=== PATIENT | female | born 1965 | race Two or more races ===

== ENCOUNTER 2018-11-17 09:58 | Emergency (ER) | payer MEDICAID ==
[~2018-11-17] VITALS: Ht 157.5 cm; Wt 81.6 kg
[~2018-11-17 09:58] MED LIST: BUPR100T14; OMEPRAZOLE DR 20 MG CAPSULE PO; SIMV-8 PO; TRAM50TA2 PO
[2018-11-17 10:25] VITALS: BP 156/90
[2018-11-17] MEDS ORDERED: KETOROLAC TROMETH 60MG/2ML VIAL IM ONE (10:45)
== END 2018-11-17 11:27 | disposition home or self-care (01) ==
LOC: ER 10:00
DX: S59.802A Other specified injuries of left elbow, initial encounter (principal); E11.9 Type 2 diabetes mellitus without complications; E78.5 Hyperlipidemia, unspecified; F17.210 Nicotine dependence, cigarettes, uncomplicated; Z90.49 Acquired absence of other specified parts of digestive tract; Z90.710 Acquired absence of both cervix and uterus; Z79.899 Other long term (current) drug therapy; W18.39XA Other fall on same level, initial encounter; Y93.89 Activity, other specified; Y99.8 Other external cause status; Y92.89 Other specified places as the place of occurrence of the external cause
CPT/HCPCS: 73080; 96372; 99283; J1885

== ENCOUNTER 2019-02-23 13:18 | Emergency (ER) | payer MEDICAID ==
[~2019-02-23] VITALS: Ht 157.5 cm; Wt 79.4 kg
[2019-02-23 13:35] VITALS: BP 129/79
== END 2019-02-23 15:36 | disposition home or self-care (01) ==
LOC: ER 13:28
DX: S46.911A Strain of unspecified muscle, fascia and tendon at shoulder and upper arm level, right arm, initial encounter (principal); W18.39XA Other fall on same level, initial encounter; Y93.01 Activity, walking, marching and hiking; Y92.89 Other specified places as the place of occurrence of the external cause; Y99.8 Other external cause status
CPT/HCPCS: 73030

== ENCOUNTER 2019-08-31 11:25 | Inpatient (IN) | payer MEDICAID ==
[~2019-08-31] VITALS: Ht 157.5 cm; Wt 81.6 kg
[2019-08-31 12:16] LABS: Basophils # (auto) 0 10 ^3/uL (0-0.2); Basophils % (auto) 0.4 % (0.0-2.0); Eosinophils # (auto) 0 10 ^3/uL (0-0.8); Eosinophils % (auto) 0.6 % (0.0-7.0); Hematocrit 44.8 % (36.0-46.0); Hemoglobin 15.2 g/dL (12.2-16.2); Lymphocytes # (auto) 1.5 10 ^3/uL (0.4-5.4); Lymphocytes % (auto) 23.2 % (10.0-50.0); Mean Corpuscular Hemoglobin 32.5 pg (28.0-32.0); Mean Corpuscular Volume 95.7 fL (80.0-100.0); Monocytes # (auto) 0.4 10 ^3/uL (0-1.3); Monocytes % (auto) 5.5 % (0.0-12.0); Neutrophils # (auto) 4.5 10 ^3/uL (1.6-8.6); Neutrophils % (auto) 70.3 % (37.0-80.0); Nucleated Red Blood Cells % 0.1 %; Platelet Count (auto) 262 10^3/uL (140-450); Red Blood Cells 4.68 10^6/uL (4.0-5.20); Red Cell Distribution Width 13.7 % (11.8-14.3); White Blood Cell 6.4 10^3/uL (4.4-10.8)
[2019-08-31 12:37] LABS: Albumin 3.2 g/dL (3.4-5.0); Anion Gap 8 (5-15); Blood Urea Nitrogen 7 mg/dL (7-18); Calcium 8.5 mg/dL (8.5-10.1); Carbon Dioxide 20 mmol/L (21-32); Chloride 105 mmol/L (98-107); Glucose 283 mg/dL (74-106); Potassium 3.9 mmol/L (3.5-5.1); Sodium 133 mmol/L (136-145)
[2019-08-31 12:42] LABS: Alanine Aminotransferase 30 U/L (13-56); Alkaline Phosphatase 102 U/L (45-117); Aspartate Aminotransferase 15 U/L (15-37); BUN/Creatinine Ratio 13.5; Bilirubin, Total 0.9 mg/dL (0.2-1.0); CRP High Sensitivity 0.09 mg/dL (< 0.3); GFR African American 159 mL/min; GFR Non-African American 131 mL/min; Lactate Dehydrogenase 171 U/L (84-246); Total Protein 7.5 g/dL (6.4-8.2)
[2019-08-31 13:10] LABS: Urine Bacteria NONE SEEN /hpf (None Seen); Urine Blood TRACE /uL (Negative); Urine WBC 12 /hpf (0 - 5)
[2019-08-31] MEDS ORDERED: MORPHINE SULFATE 4 MG/ML SYR/VIAL IV ONE (13:15)
[2019-08-31] MEDS ORDERED: ONDANSETRON HCL 4 MG/2 ML VIAL IV ONE (13:15)
[2019-08-31 13:32] LABS: Lactic Acid w/Reflex 2.4 mmol/L (0.4-2.0)
[2019-08-31] MEDS ORDERED: SODIUM CHLORIDE 0.9% 1,000 ML IV ONE (14:45)
[2019-08-31] MEDS ORDERED: cefTRIAXone 1GM/50ML D5W 50 ML IV ONE (15:00)
[2019-08-31] MEDS ORDERED: CHOLECALCIFEROL (VITD3) 1,000IU=25mCg TAB PO ONE (16:30)
[2019-08-31] MEDS ORDERED: ASCORBIC ACID 500 MG TAB PO ONE (16:30)
[2019-08-31] MEDS ORDERED: hydrALAZINE HCL 20 MG/ML VL IV PRN (16:30)
[2019-08-31] MEDS ORDERED: ACETAMINOPHEN 325 MG TAB PO PRN (16:30)
[2019-08-31] MEDS ORDERED: NITROGLYCERIN 0.4 MG SL TAB SL PRN (16:30)
[2019-08-31] MEDS ORDERED: ZINC SULFATE 220mg CAP or TAB PO ONE (16:30)
[2019-08-31] MEDS ORDERED: MORPHINE SULF INJ 2 MG/ML SYRINGE 1ML IV PRN (16:30)
[2019-08-31] MEDS ORDERED: HYDROcodone-ACET 5/325MG TAB PO PRN (16:30)
[2019-08-31 20:00] VITALS: BP 116/64
[2019-08-31] MEDS ORDERED: ATORVASTATIN 20 MG TAB PO SCH (22:00)
[2019-08-31] MEDS ORDERED: traMADol HCL 50 MG TAB PO SCH (22:00)
[2019-08-31] MEDS ORDERED: AZIT500T PO (23:55)
[2019-09-01] MEDS ORDERED: ASCORBIC ACID 500 MG TAB PO SCH (10:00)
[2019-09-01] MEDS ORDERED: ASPirin-EC 81 mg tab PO SCH (10:00)
[2019-09-01] MEDS ORDERED: PANTOPRAZOLE 40 MG TAB PO SCH (10:00)
[2019-09-01] MEDS ORDERED: ZINC SULFATE 220mg CAP or TAB PO SCH (10:00)
[2019-09-01] MEDS ORDERED: CHOLECALCIFEROL (VITD3) 1,000IU=25mCg TAB PO SCH (10:00)
[2019-09-01] MEDS ORDERED: NICOTINE 21MG/24 HR TOPICAL PATCH TD ONE (10:00)
[2019-09-01] MEDS ORDERED: buPROPion HCL 100 MG TAB PO SCH (10:00)
== END 2019-09-01 02:35 | disposition left against medical advice (07) | DRG 203 ==
LOC: ER 11:25 → TELE-E-ADS 11:26
PROVIDERS: ADMIT Internal Medicine; ATTEND Internal Medicine
DX: R07.9 Chest pain, unspecified (principal); E11.9 Type 2 diabetes mellitus without complications; F17.210 Nicotine dependence, cigarettes, uncomplicated; I10 Essential (primary) hypertension; R50.9 Fever, unspecified; R51 Headache; J98.11 Atelectasis; F41.9 Anxiety disorder, unspecified; N39.0 Urinary tract infection, site not specified; Z20.828 Contact with and (suspected) exposure to other viral communicable diseases; Z71.6 Tobacco abuse counseling; Z90.710 Acquired absence of both cervix and uterus; Z53.29 Procedure and treatment not carried out because of patient's decision for other reasons
CPT/HCPCS: 36415; 71045; 80053; 81001; 82728; 83605; 83615; 83880; 84484; 85025; 85379; 86141; 87040; 87070; 87804; 87880; 93005; 96374; 96375; G0378; J2405

== ENCOUNTER 2020-02-07 09:30 | Emergency (ER) | payer MEDICAID ==
[~2020-02-07] VITALS: Ht 157.5 cm; Wt 77.1 kg
[~2020-02-07 09:30] MED LIST changes: +AZIT500T PO
[2020-02-07 09:37] VITALS: BP 146/95
[2020-02-07 11:24] LABS: Urine Bacteria NONE SEEN /hpf (None Seen); Urine Blood Negative /uL (Negative); Urine Mucus FEW (None Seen); Urine Specific Gravity 1.027 (1.001-1.035); Urine WBC 72 /hpf (0 - 5)
[2020-02-07] MEDS ORDERED: cefTRIAXone SOD 1,000 MG VL ONE (13:06)
[2020-02-07] MEDS ORDERED: cefTRIAXone SOD 1,000 MG VL IM ONE (13:15)
== END 2020-02-07 13:31 | disposition home or self-care (01) ==
LOC: ER 09:30
DX: N39.0 Urinary tract infection, site not specified (principal); K59.00 Constipation, unspecified; B37.3 Candidiasis of vulva and vagina; K57.30 Diverticulosis of large intestine without perforation or abscess without bleeding; E11.9 Type 2 diabetes mellitus without complications; E78.00 Pure hypercholesterolemia, unspecified; F17.210 Nicotine dependence, cigarettes, uncomplicated; F10.20 Alcohol dependence, uncomplicated; Z87.440 Personal history of urinary (tract) infections; Z90.49 Acquired absence of other specified parts of digestive tract; Z98.890 Other specified postprocedural states; Z90.710 Acquired absence of both cervix and uterus; Z79.899 Other long term (current) drug therapy; Y90.9 Presence of alcohol in blood, level not specified
CPT/HCPCS: 74176; 81001; 82962; 96372; 99284; J0696

== ENCOUNTER 2021-10-11 15:31 | Inpatient (IN) | payer MEDICAID, OTHER ==
[~2021-10-11] VITALS: Ht 157.5 cm; Wt 73.3 kg
[~2021-10-11 15:31] MED LIST changes: +BUPR-160; -BUPR100T14
[2021-10-11] MEDS ORDERED: SODIUM CHLORIDE 0.9% 1,000 ML IV ONE (15:45)
[2021-10-11 16:34] LABS: Basophils # (auto) 0 10 ^3/uL (0-0.2); Basophils % (auto) 0.2 % (0.0-2.0); Eosinophils # (auto) 0.1 10 ^3/uL (0-0.8); Eosinophils % (auto) 0.7 % (0.0-7.0); Hematocrit 44.3 % (36.0-46.0); Hemoglobin 15.2 g/dL (12.2-16.2); Lymphocytes # (auto) 2.4 10 ^3/uL (0.4-5.4); Lymphocytes % (auto) 25.1 % (10.0-50.0); Mean Corpuscular Hemoglobin 31.5 pg (28.0-32.0); Mean Corpuscular Hgb Conc. 34.2 g/dL (32.0-36.0); Mean Corpuscular Volume 91.9 fL (80.0-100.0); Monocytes # (auto) 0.6 10 ^3/uL (0-1.3); Monocytes % (auto) 6.9 % (0.0-12.0); Neutrophils # (auto) 6.3 10 ^3/uL (1.6-8.6); Neutrophils % (auto) 67.1 % (37.0-80.0); Nucleated Red Blood Cells % 0.1 %; Red Blood Cells 4.82 10^6/uL (4.0-5.20); Red Cell Distribution Width 12.9 % (11.8-14.3); White Blood Cell 9.4 10^3/uL (4.4-10.8)
[2021-10-11 16:49] LABS: INR 0.99 (0.9-1.15); Partial Thromboplastin Time 23.7 sec (23.6-33.0)
[2021-10-11 16:59] LABS: Alanine Aminotransferase 23 U/L (13-56); Albumin 3.6 g/dL (3.4-5.0); Anion Gap 11 (5-15); Aspartate Aminotransferase 21 U/L (15-37); BUN/Creatinine Ratio 13.9; Blood Urea Nitrogen 11 mg/dL (7-18); Calcium 8.9 mg/dL (8.5-10.1); Carbon Dioxide 21 mmol/L (21-32); Chloride 103 mmol/L (98-107); GFR African American 97 mL/min; GFR Non-African American 80 mL/min; Glucose 121 mg/dL (74-106); Magnesium 1.6 mg/dL (1.6-2.6); Potassium 3.3 mmol/L (3.5-5.1); Sodium 135 mmol/L (136-145)
[2021-10-11 17:01] LABS: Alkaline Phosphatase 98 U/L (45-117); Total Protein 7.4 g/dL (6.4-8.2)
[2021-10-11] MEDS ORDERED: PIPERACILLIN-TAZOB 3.375GM 100 ML IV ONE (17:30)
[2021-10-11 18:06] LABS: Amylase 41 U/L (25-115); Lipase 85 U/L (73-393)
[2021-10-11] MEDS ORDERED: ACETAMINOPHEN 325 MG TAB PO PRN (20:45)
[2021-10-11] MEDS ORDERED: ONDANSETRON HCL 4 MG/2 ML VIAL IV PRN (20:45)
[2021-10-11] MEDS ORDERED: MORPHINE SULFATE INJ 2 MG/ml SYRG IV PRN (20:45)
[2021-10-11] MEDS ORDERED: LORazepam 0.5 MG TAB PO PRN (20:45)
[2021-10-11] MEDS ORDERED: HYDROcodone-ACET 5/325MG TAB PO PRN (20:45)
[2021-10-11] MEDS ORDERED: DOCUSATE SOD 100 MG CAP PO PRN (20:45)
[2021-10-11] MEDS ORDERED: TEMAZEPAM 15 MG CAP PO PRN (20:45)
[2021-10-11] MEDS: SODIUM CHLORIDE 0.9% 1,000 ML IV SCH (21:09)
[2021-10-11 21:59] LABS: Cholesterol 178 mg/dL (< 200)
[2021-10-11 22:02] LABS: HDL Cholesterol 43 mg/dL (40-59); LDL Cholesterol 110 mg/dL (< 100); Triglycerides 144 mg/dL (< 150)
[2021-10-11 22:10] LABS: Basophils # (auto) 0 10 ^3/uL (0-0.2); Basophils % (auto) 0.4 % (0.0-2.0); Eosinophils # (auto) 0.1 10 ^3/uL (0-0.8); Eosinophils % (auto) 0.8 % (0.0-7.0); Hematocrit 43.5 % (36.0-46.0); Hemoglobin 14.8 g/dL (12.2-16.2); Lymphocytes # (auto) 2.8 10 ^3/uL (0.4-5.4); Lymphocytes % (auto) 31.6 % (10.0-50.0); Mean Corpuscular Hemoglobin 31.3 pg (28.0-32.0); Mean Corpuscular Hgb Conc. 34.1 g/dL (32.0-36.0); Mean Corpuscular Volume 91.7 fL (80.0-100.0); Monocytes # (auto) 0.5 10 ^3/uL (0-1.3); Monocytes % (auto) 5.9 % (0.0-12.0); Neutrophils # (auto) 5.5 10 ^3/uL (1.6-8.6); Neutrophils % (auto) 61.3 % (37.0-80.0); Nucleated Red Blood Cells % 0.1 %; Red Blood Cells 4.74 10^6/uL (4.0-5.20); Red Cell Distribution Width 13.1 % (11.8-14.3); White Blood Cell 8.9 10^3/uL (4.4-10.8)
[2021-10-11 22:31] LABS: Urine Bacteria FEW /hpf (None Seen); Urine Blood Negative /uL (Negative); Urine Specific Gravity 1.005 (1.001-1.035); Urine WBC 32 /hpf (0 - 5)
[2021-10-11 22:47] LABS: Alcohol, Urine < 3.0 mg/dL (0-10); Amphetamine Screen, Urine NEGATIVE (NEGATIVE); Benzodiazephine Screen, Urine NEGATIVE (NEGATIVE); Cannabinoid Screen, Urine NEGATIVE (NEGATIVE); Cocaine Screen, Urine NEGATIVE (NEGATIVE); Opiate Scree,Urine NEGATIVE (NEGATIVE); Phencyclidine Screen, Urine NEGATIVE (NEGATIVE)
[2021-10-11 22:49] LABS: Barbiturate Scree,Urine NEGATIVE (NEGATIVE)
[2021-10-12 01:30] VITALS: BP 97/53
[2021-10-12 05:00] VITALS: BP 92/54
[2021-10-12] MEDS ORDERED: PIPERACILLIN-TAZOB 3.375GM 100 ML IV SCH (05:00)
[2021-10-12] MEDS ORDERED: METF-370 PO (07:53)
[2021-10-12] MEDS ORDERED: OXYB5TAB61 PO (07:55)
[2021-10-12] MEDS ORDERED: INSU1INJ19 SC (07:55)
[2021-10-12] MEDS ORDERED: CITA-77 PO (07:55)
[2021-10-12 08:00] VITALS: BP 112/66
[2021-10-12 12:00] VITALS: BP 105/61
[2021-10-12] MEDS: SODIUM CHLORIDE 0.9% 1,000 ML IV SCH ×2 (13:25→23:59)
[2021-10-12 16:00] VITALS: BP 94/50
[2021-10-12] MEDS ORDERED: HYDROcodone-ACET 5/325MG TAB PO PRN (16:15)
[2021-10-12] MEDS ORDERED: ACETAMINOPHEN 325 MG TAB PO PRN (16:15)
[2021-10-12 22:00] VITALS: BP 112/71
[2021-10-13] MEDS ORDERED: POTASSIUM CHL 20MEQ/100ML 100 ML IV ONE
[2021-10-13] MEDS: PANTOPRAZOLE 40 MG/10 ML VIAL INJ IV SCH ×2 (00:15→08:53)
[2021-10-13 05:10] VITALS: BP 125/71
[2021-10-13 07:20] LABS: BUN/Creatinine Ratio 21.4; Calcium 8.8 mg/dL (8.5-10.1); Magnesium 1.7 mg/dL (1.6-2.6)
[2021-10-13 09:00] VITALS: BP 127/58
[2021-10-13] MEDS: MORPHINE SULFATE INJ 2 MG/ml SYRG IV PRN ×3 (09:14→22:00)
[2021-10-13] MEDS: levoFLOXacin 500MG 100 ML IV SCH (09:15)
[2021-10-13 13:00] VITALS: BP 122/72
[2021-10-13] MEDS: SUCRALFATE 1 GM/10 ML ORAL SUSP PO SCH ×3 (13:05→22:00)
[2021-10-13] MEDS ORDERED: NICOTINE 21MG/24 HR TOPICAL PATCH TD ONE (13:45)
[2021-10-13 17:00] VITALS: BP 108/62
[2021-10-13] MEDS: PANTOPRAZOLE 40 MG TAB PO SCH (22:00)
[2021-10-13 22:22] VITALS: BP 127/64
[2021-10-13] MEDS: SODIUM CHLORIDE 0.9% 1,000 ML IV SCH (22:45)
[2021-10-14 05:10] VITALS: BP 136/58
[2021-10-14] MEDS: SUCRALFATE 1 GM/10 ML ORAL SUSP PO SCH ×3 (06:01→17:00)
[2021-10-14] MEDS: MORPHINE SULFATE INJ 2 MG/ml SYRG IV PRN (06:41)
[2021-10-14] MEDS ORDERED: diphenhdrAMINE HCL 50 MG/1 ML VL ONE (08:15)
[2021-10-14] MEDS ORDERED: SODIUM CHLORIDE LOCK 10 ML ONE (08:15)
[2021-10-14] MEDS ORDERED: LIDOCAINE VISCOUS 2% 15ML UD ONE ×2 (08:15→10:10)
[2021-10-14 08:37] VITALS: BP 117/67
[2021-10-14] MEDS ORDERED: NALOXONE HCL 0.4 MG/ML VIAL ONE (08:58)
[2021-10-14] MEDS ORDERED: FLUMAZENIL 0.1 MG/ML INJ 10ML MDV IV ONE (08:59)
[2021-10-14] MEDS ORDERED: EPINEPHrine HCL 1 MG/10 ML SYRG ONE (08:59)
[2021-10-14] MEDS ORDERED: NICOTINE 21MG/24 HR TOPICAL PATCH TD SCH (10:00)
[2021-10-14] MEDS: PANTOPRAZOLE 40 MG TAB PO SCH (10:00)
[2021-10-14] MEDS: levoFLOXacin 500MG 100 ML IV SCH (11:00)
[2021-10-14 12:08] VITALS: BP 117/71
[2021-10-14] MEDS: SODIUM CHLORIDE 0.9% 1,000 ML IV SCH (15:25)
[2021-10-14 16:26] VITALS: BP 117/58
[2021-10-14] MEDS: MIDAZOLAM HCL 5 MG/ML-1ML VIAL ONE ×2 (17:48→17:51)
[2021-10-14] MEDS: fentaNYL CITRATE 100 MCG/2 ML VL ONE ×2 (17:48→17:51)
[2021-10-14 18:15] VITALS: BP 127/85
[2021-10-14] MEDS ORDERED: LEVO500T31 PO (22:43)
[2021-10-14] MEDS ORDERED: SUCR1SUS10 PO (22:43)
[2021-10-14] MEDS ORDERED: PANT40T PO (22:43)
== END 2021-10-14 20:33 | disposition left against medical advice (07) | DRG 249 ==
LOC: ER 15:31 → OVERFLOW 20:33 → EAST 10-12 00:55
PROVIDERS: ADMIT Hospitalist; ATTEND Internal Medicine
PROC: 0DB68ZX Excision of Stomach, Via Natural or Artificial Opening Endoscopic, Diagnostic (ICD-10-PCS; principal; 2021-10-14 17:40)
DX: K52.9 Noninfective gastroenteritis and colitis, unspecified (principal); E11.9 Type 2 diabetes mellitus without complications; E78.5 Hyperlipidemia, unspecified; K57.30 Diverticulosis of large intestine without perforation or abscess without bleeding; K42.9 Umbilical hernia without obstruction or gangrene; K21.9 Gastro-esophageal reflux disease without esophagitis; N39.0 Urinary tract infection, site not specified; K29.70 Gastritis, unspecified, without bleeding; F32.9 Major depressive disorder, single episode, unspecified; F32.A Depression, unspecified; F41.9 Anxiety disorder, unspecified; Z20.822 Contact with and (suspected) exposure to COVID-19; Z53.29 Procedure and treatment not carried out because of patient's decision for other reasons; Z90.49 Acquired absence of other specified parts of digestive tract; Z97.10 Presence of artificial limb (complete) (partial), unspecified
CPT/HCPCS: 36415; 71045; 74176; 80048; 80053; 80061; 80307; 81001; 82150; 82962; 83605; 83690; 83735; 83880; 84484; 84702; 85025; 85610; 85730; 87086; 93005; 96365; 96375; C9113; G0378; J1956; J2250; J2405; J2543; J3480

== ENCOUNTER 2022-09-12 18:17 | Emergency (ER) | payer MEDICAID ==
[~2022-09-12] VITALS: Ht 157.5 cm; Wt 70.0 kg
[~2022-09-12 18:17] MED LIST changes: -BUPR-160; +BUPR-346; +CITA-77 PO; +INSU1INJ19 SC; +LEVO500T31 PO; +METF-370 PO; +OXYB5TAB10 PO; +PANT40T PO; -SIMV-8 PO; +SIMV20TA20 PO; +SUCR1SUS26 PO
[2022-09-12] MEDS ORDERED: LIDOCAINE 2% JELLY 11ml (GLYDO) UR ONE (18:45)
[2022-09-12 18:58] LABS: Urine Bacteria FEW /hpf (None Seen); Urine Blood 2+ /uL (Negative); Urine Specific Gravity 1.018 (1.001-1.035); Urine WBC 3 /hpf (0 - 5)
[2022-09-12 22:36] VITALS: BP 91/54
== END 2022-09-12 22:59 | disposition home or self-care (01) ==
LOC: ER 18:17
DX: R33.9 Retention of urine, unspecified (principal); F41.9 Anxiety disorder, unspecified; I10 Essential (primary) hypertension; E78.5 Hyperlipidemia, unspecified; E11.9 Type 2 diabetes mellitus without complications; F17.210 Nicotine dependence, cigarettes, uncomplicated; F10.20 Alcohol dependence, uncomplicated; Z87.440 Personal history of urinary (tract) infections; Z90.49 Acquired absence of other specified parts of digestive tract; Z98.890 Other specified postprocedural states; Z90.710 Acquired absence of both cervix and uterus; Y90.9 Presence of alcohol in blood, level not specified
CPT/HCPCS: 51702; 81001

== ENCOUNTER 2024-02-05 12:18 | Emergency (ER) | payer MEDICAID ==
[~2024-02-05] VITALS: Ht 154.9 cm; Wt 60.0 kg
[~2024-02-05 12:18] MED LIST changes: -OXYB5TAB10 PO; +OXYB5TAB14 PO
[2024-02-05] MEDS: LIDOCAINE VISCOUS 2% 15ML UD PO ONE (12:44)
[2024-02-05] MEDS: MAALOX PLUS or MAALOX 30 ML PO ONE (12:44)
[2024-02-05] MEDS: DONNATAL 5ml ORAL Elix (BELLADONNA ALK-PHENOBARB) PO ONE (12:44)
[2024-02-05 12:50] VITALS: BP 129/85; RESP 17; TEMP 98.6; O2SAT 98
[2024-02-05 12:53] VITALS: PULSE 68
[2024-02-05] MEDS: METOCLOPRAMIDE HCL 5MG/ml INJ 2ml VIAL IV ONE (13:03)
[2024-02-05] MEDS: SODIUM CHLORIDE 0.9% 1,000 ML IV ONE (13:13)
[2024-02-05 13:52] LABS: Basophils # (auto) 0 10 ^3/uL (0-0.2); Basophils % (auto) 0.5 % (0.0-2.0); Eosinophils # (auto) 0 10 ^3/uL (0-0.8); Eosinophils % (auto) 0.6 % (0.0-7.0); Hematocrit 43.5 % (36.0-46.0); Lymphocytes # (auto) 2.2 10 ^3/uL (0.4-5.4); Lymphocytes % (auto) 30.2 % (10.0-50.0); Mean Corpuscular Hgb Conc. 34.5 g/dL (32.0-36.0); Mean Corpuscular Volume 92.8 fL (80.0-100.0); Monocytes # (auto) 0.4 10 ^3/uL (0-1.3); Monocytes % (auto) 5.6 % (0.0-12.0); Neutrophils # (auto) 4.6 10 ^3/uL (1.6-8.6); Neutrophils % (auto) 63.1 % (37.0-80.0); Nucleated Red Blood Cells % 0.1 %; Platelet Count (auto) 331 10^3/uL (140-450); Red Blood Cells 4.69 10^6/uL (4.0-5.20); Red Cell Distribution Width 13.7 % (11.8-14.3); White Blood Cell 7.2 10^3/uL (4.4-10.8)
[2024-02-05 13:53] LABS: Chloride 108 mmol/L (98-107); Potassium 4.4 mmol/L (3.5-5.1); Sodium 139 mmol/L (136-145)
[2024-02-05 13:54] LABS: Anion Gap 8 (5-15); Calcium 10.2 mg/dL (8.7-10.4); Carbon Dioxide 23 mmol/L (20-31)
[2024-02-05 13:59] LABS: Glucose 153 mg/dL (74-106)
[2024-02-05 14:00] LABS: BUN/Creatinine Ratio 8.3 (10.0-20.0); Blood Urea Nitrogen < 5 mg/dL (9-23); Magnesium 1.6 mg/dL (1.6-2.6)
[2024-02-05 14:03] LABS: Urine WBC None Seen /hpf (0 - 5)
[2024-02-05 14:17] LABS: Urine Bacteria FEW /hpf (None Seen); Urine Blood Negative /uL (Negative); Urine Clarity Clear (Clear); Urine Color Colorless (Yellow); Urine Protein, UAD Negative (Negative); Urine Specific Gravity 1.004 (1.001-1.035); Urine Urobilinogen Normal (Negative); Urine pH 5.5 (5.0-9.0)
[2024-02-05 14:17] LABS: Lipase 25 U/L (12-53)
== END 2024-02-05 13:36 | disposition left against medical advice (07) ==
LOC: ER 12:18
DX: K21.00 Gastro-esophageal reflux disease with esophagitis, without bleeding (principal); K44.9 Diaphragmatic hernia without obstruction or gangrene; E11.9 Type 2 diabetes mellitus without complications; F17.210 Nicotine dependence, cigarettes, uncomplicated; F41.9 Anxiety disorder, unspecified; Z79.4 Long term (current) use of insulin; Z79.84 Long term (current) use of oral hypoglycemic drugs; Z79.899 Other long term (current) drug therapy; Z87.440 Personal history of urinary (tract) infections; Z90.49 Acquired absence of other specified parts of digestive tract; Z90.710 Acquired absence of both cervix and uterus
CPT/HCPCS: 36415; 80048; 81001; 83690; 83735; 84484; 85025; 93005; 96374; 99284; J2765; J7030

== ENCOUNTER 2024-05-01 11:19 | Emergency (ER) | payer MEDICAID ==
[~2024-05-01] VITALS: Ht 157.5 cm; Wt 57.9 kg
--- NOTE | 2024-05-01 12:28 | ED.PDOC ---
GI ASSESSMENT HPI Comments 59 y.o female presents to the ED for a chief complaint of LUQ pain s/p fall about 9 days ago. Patient reports a trip and fall, landed on her abdomen and began having nausea and vomiting then that has progressively worsened the past couple of days alongside pain. Patient describes pain as sharp, constant, and rating a 10/10 on the pain scale. Patient denies any fever, chills, head or back pain. She denies any substance, alcohol or tobacco use. Chief Complaint: Abdominal Pain Time Seen by MD: 12:09 Primary Care Provider: SREEDHAR Reviewed Notes: Nurses Notes, Medications, Allergies Allergies: Coded Allergies: NO KNOWN ALLERGIES (Unverified , 06/19/11) Home Meds Active Scripts Sucralfate (CARAFATE SUSP) 1 Gm/10 Ml Ss, 1 GM PO QIDACHS, #1200 ML Prov:CHILO TREVINO MD 10/14/21 Pantoprazole Sodium Sesquihydr (Pantoprazole Sodium) 40 Mg Tab, 40 MG PO BID, #60 TAB Prov:CHILO TREVINO MD 10/14/21 Levofloxacin (Levaquin) 500 Mg Tab, 500 MG PO DAILY, #5 TAB Prov:CHILO TREVINO MD 10/14/21 Azithromycin (Zithromax) 500 Mg Tab, 1 TAB PO DAILY, #5 TAB Prov:SEBASTIÁN TREVINO MD 08/31/19 Reported Medications Insulin Glargine (Basaglar Kwikpen) 100 Unit/Ml Inj, 52 UNIT SC DAILY, INJ 10/12/21 Oxybutynin Chloride (Oxybutynin Chloride) 5 Mg Tab, 5 MG PO DAILY, TAB 10/12/21 Citalopram Hydrobromide (Citalopram Hydrobromide) 20 Mg Tab, 20 MG PO DAILY for 30 Days, MG 10/12/21 Metformin Hydrochloride (Metformin Hcl) 500 Mg Tab, 2000 MG PO DAILY for 30 Days, MG 10/12/21 [Tramadol Hcl50 Mg] (Tramadol Hcl) 50 MG TAB No Conflict Check, MG PO PRN 08/30/12 [Bupropion Cim980 Mg] (Bupropion Hcl) 100 MG TAB No Conflict Check, MG 08/30/12 [Gmraiwdolep36 Mg] (Simvastatin) 20 MG TAB No Conflict Check, MG PO DAILY 08/30/12 [Omeprazole Dr 20 Mg Capsule] No Conflict Check, PO DAILY 08/30/12 Information Source: Patient Mode of Arrival: Ambulatory Duration: Since onset Quality: Sharp Vomitus: Hard Stool: Empty Severity: Moderate Recent: None Recent Hx of: None Pain Location: LUQ Modifying Factors: Nothing Associated sign and symptoms: Nausea, Vomiting, Constipation, Abdominal Pain Past Medical History PAST MEDICAL HISTORY: Anxiety, Cancer, DM, GERD, High Lipids, UTI'S Surgical History: Cholecystectomy, , Hysterectomy 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 Family History Family History: Reviewed,noncontributory to illness, Unknown Social History Smoker: Cigarettes Alcohol: Sober Drugs: Denies Drug Use Lives In: Home Constitutional: denies: chills, diaphoresis, fatigue, fever, malaise, sweats, weakness, others EENTM: denies: blurred vision, double vision, ear bleeding, ear discharge, ear drainage, ear pain, ear ringing, eye pain, eye redness, hearing loss, mouth pain, mouth swelling, nasal discharge, nose bleeding, nose congestion, nose pain, photophobia, tearing, throat pain, throat swelling, voice changes, others Respiratory: denies: cough, hemoptysis, orthopnea, SOB at rest, shortness of breath, SOB with excertion, stridor, wheezing, others Cardiovascular: denies: chest pain, dizzy spells, diaphoresis, Dyspnea on exertion, edema, irregular heart beat, left arm pain, lightheadedness, palpitations, PND, syncope, others Gastrointestinal: reports: abdominal pain, constipated, nausea, vomiting; denies: abdomen distended, blood streaked bowels, diarrhea, dysphagia, difficulty swallowing, hematemesis, melena, poor appetite, poor fluid intake, rectal bleeding, rectal pain, others Genitourinary: denies: abnormal vagina bleeding, burning, dyspareunia, dysuria, flank pain, frequency, hematuria, incontinence, pain, , vagina discharge, urgency, others Neurological: denies: dizziness, fainting, headache, left sided numbness, left sided weakness, numbness, paresthesia, pre-existing deficit, right sided numbness, right sided weakness, seizure, speech problems, tingling, tremors, weakness, others Musculoskeletal: denies: back pain, gout, joint pain, joint swelling, muscle pain, muscle stiffness, neck pain, others Integumetry: denies: bruises, change in color, change in hair/nails, dryness, laceration, lesions, lumps, rash, wounds, others Allergic/Immunocompromised: denies: Difficulty Healing, Frequent Infections, Hives, Itching, others Hematologic/Lymphatic: denies: anemia, blood clots, easy bleeding, easy bruising, swollen glands, others Endocrine: denies: excessive hunger, excessive sweating, excessive thirst, excessive urination, flushing, intolerance to cold, intolerance to heat, unexplained weight gain, unexplained weight loss, others Psychiatric: denies: anxiety, bipolar disorder, depression, hopeless, panic disorder, schizophrenia, sleepless, suicidal, others All Other Systems: Reviewed and Negative Physical Exam General Appearance: No Apparent Distress HEENT: Normal ENT Inspection, Pharynx Normal, TMs Normal Neck: Full Range of Motion, Non-Tender, Normal, Normal Inspection Respiratory: Chest Non-Tender, Lungs Clear, No Accessory Muscle Use, No Respiratory Distress, Normal Breath Sounds Cardiovascular: No Edema, No JVD, No Murmur, No Gallop, Normal Peripheral Pulses, Regular Rate/Rhythm Breast Exam: Deferred Gastrointestinal: LUQ, No Organomegaly, No Pulsatile Mass, Normal Bowel Sounds, Soft, Tenderness Genitalia: Deferred Pelvic: Deferred Rectal: Deferred Extremities: No calf tenderness, Normal capillary refill, Normal inspection, Normal range of motion, Non-tender, No pedal edema Musculoskeletal : Apperance: Normal Neurologic: Alert, clearance rep II-XII nml as Tested, No Motor Deficits, Normal Affect, Normal Mood, No Sensory Deficits Cerebellar Function: Normal Reflexes: Normal Skin: Dry, Normal Color, Warm Lymphatic: No Adenopathy Was a procedure done? Was a procedure done?: No GI differential Dx Differential Diagnosis: Diverticular disease, Dysmenorrhea, Esophagitis, Trauma intraabdominal, Impaction, Renal Failure, Esophageal Varicies, Stress Ulcer X-Ray, Labs, Meds, VS Vital Signs Date Time Temp Pulse Resp B/P (MAP) Pulse Ox O2 Delivery O2 Flow Rate FiO2 05/01/24 12:44 Room Air* 0 21 05/01/24 12:43 98.1 70 16 115/60 (78) 99 98.1 05/01/24 11:25 98.4 99 20 112/76 (88) 98 Lab Test 05/01/24 13:05 05/01/24 13:00 Range/Units White Blood Count 9.5 4.4-10.8 10^3/uL Red Blood Count 4.83 4.0-5.20 10^6/uL Hemoglobin 15.4 12.2-16.2 g/dL Hematocrit 44.3 36.0-46.0 % Mean Corpuscular Volume 91.7 80.0-100.0 fL Mean Corpuscular Hemoglobin 31.8 28.0-32.0 pg Mean Corpuscular Hemoglobin Concent 34.7 32.0-36.0 g/dL Red Cell Distribution Width 13.2 11.8-14.3 % Platelet Count 299 140-450 10^3/uL Mean Platelet Volume 7.2 6.9-10.8 fL Neutrophils (%) (Auto) 68.3 37.0-80.0 % Lymphocytes (%) (Auto) 26.5 10.0-50.0 % Monocytes (%) (Auto) 4.5 0.0-12.0 % Eosinophils (%) (Auto) 0.2 0.0-7.0 % Basophils (%) (Auto) 0.5 0.0-2.0 % Neutrophils # (Auto) 6.5 1.6-8.6 10 ^3/uL Lymphocytes # (Auto) 2.5 0.4-5.4 10 ^3/uL Monocytes # (Auto) 0.4 0-1.3 10 ^3/uL Eosinophils # (Auto) 0 0-0.8 10 ^3/uL Basophils # (Auto) 0 0-0.2 10 ^3/uL Nucleated Red Blood Cells 0.0 % Sodium Level 135 L 136-145 mmol/L Potassium Level 4.0 3.5-5.1 mmol/L Chloride Level 104 98-107 mmol/L Carbon Dioxide Level 23 20-31 mmol/L Anion Gap 8 5-15 Blood Urea Nitrogen 19 9-23 mg/dL Creatinine 0.95 0.550-1.02 mg/dL Glomerular Filtration Rate Calc 69 >90 mL/min BUN/Creatinine Ratio 20.0 10.0-20.0 Serum Glucose 117 H 74-106 mg/dL Calcium Level 10.6 H 8.7-10.4 mg/dL Total Bilirubin 1.2 H 0.2-1.0 mg/dL Aspartate Amino Transferase (AST) 14 13-40 U/L Alanine Aminotransferase (ALT) 10 7-40 U/L Alkaline Phosphatase 87 46-116 U/L Total Protein 7.2 5.7-8.2 g/dL Albumin 4.4 3.2-4.8 g/dL Lipase 35 12-53 U/L Urine Color Colorless Yellow Urine Clarity Ex.turbid Clear Urine pH 5.5 5.0-9.0 Urine Specific Gypsum > 1.050 H 1.001-1.035 Urine Protein Negative Negative Urine Ketones 1+ H Negative Urine Blood Negative Negative /uL Urine Nitrite Negative Negative Urine Bilirubin Negative Negative Urine Urobilinogen Normal Negative mg/dL Urine Leukocyte Esterase Negative Negative /uL Urine RBC None seen 0 - 4 /hpf Urine WBC None seen 0 - 5 /hpf Urine Squamous Epithelial Cells None seen <5 /hpf Urine Bacteria Few H None Seen /hpf Urine Glucose 4+ H Normal mg/dL Current Medications Medications (Trade) Dose Ordered Sig/Malina Route Start Time Stop Time Status Last Admin Ondansetron HCl (Zofran) 4 mg ONCE ONCE IV 05/01/24 12:30 05/01/24 12:31 DC 05/01/24 12:40 Exam: CT CT AB PEL WITH IV CON ONLY IMPRESSION: 1. No acute abdominal or pelvic finding. Sigmoid diverticula The patient was given Zofran 4 mg IV push for the nausea The patient's CBC and chemistry panel as well as liver enzymes are negative. The urine test is negative The patient was being discharged and will follow up with the primary care doctor The patient will return to the emergency department's condition worsens The patient understands and agrees with the management. Images Reviewed?: Images reviewed and evaluated by me Time of 1ST Reevaluation: 12:16 Reevaluation 1ST: Unchanged Patient Education/Counseling: Diagnosis, Treatment, Prognosis Family Education/Counseling: No Family Present Departure 1 Departure Time of Disposition: 14:21 Impression: Primary Impression: Abdominal contusion Qualified Codes: S30.1XXA - Contusion of abdominal wall, initial encounter Disposition: HOME / SELF CARE / HOMELESS Condition: Fair Discharged With: Self Critical Care Note Critical Care Time?: No Stability Stability form required: No I personally scribed for ANDREAS JULIO MD ([email or web address]) on 05/01/24 at 12:28. Electronically submitted by Ines Whitney ([facility]). I personally scribed for ANDREAS JULIO MD ([email or web address]) on 05/01/24 at 13:15. Electronically submitted by Ines Whitney ([email or web address]). ANDREAS JULIO MD May 01, 2024 12:28
[2024-05-01] MEDS: IOHEXOL 300 MG/ML 100ML BOTTLE IJ ONE (12:32)
[2024-05-01] MEDS: ONDANSETRON HCL 4 MG/2 ML VIAL IV ONE (12:40)
[2024-05-01 12:43] VITALS: TEMP 98.1
[2024-05-01 13:06] LABS: Urine WBC None Seen /hpf (0 - 5)
--- NOTE | 2024-05-01 13:06 | DVH ---
Exam: CT CT AB PEL WITH IV CON ONLY History: pain COMPARISON: None Technique: Multidetector spiral CT of the abdomen and pelvis was performed from lung bases to pubic symphysis. Intravenous contrast was administered during this examination. Portal venous imaging was obtained. Axial, coronal and sagittal multiplanar reformats were performed by the technologist on a separate workstation. Radiation Dose : Abdomen/Pelvis: CTDIvol 5 mGy, DLP 320 mGy*cm. CONTRAST: Type of contrast: Omni 300 Contrast injected: 100 mL Findings: Lung Bases: No acute or significant lung base finding. Normal heart size. No pleural or pericardial effusion. Liver: The liver is normal in size. No focal lesions. Normal hepatic vascular enhancement. Gallbladder and biliary Tree: Gallbladder is surgically absent. Spleen: Unremarkable Pancreas: The pancreas is normal in appearance without focal lesions or abnormal enhancement. Adrenal Glands: Unremarkable Kidneys: No hydronephrosis. Bladder: Unremarkable Bowel: The stomach is grossly normal in appearance. Small bowel and colon are normal in caliber and d istribution. Normal appendix is visualized in the right lower quadrant without findings of appendici tis. Sigmoid diverticulosis. Ascites: Absent Lymphadenopathy: No mesenteric, retroperitoneal or periportal lymphadenopathy. Abdominal wall and Mesentery: Unremarkable. Vasculature: The visualized abdominal aorta is normal in size and caliber. There is calcified atheros clerotic plaque involving the aorta and its branches. Abdominal and pelvic vessels demonstrate normal enhancement. Pelvic Organs: The uterus is surgically absent. Musculoskeletal: No aggressive focal bony lesions, acute fractures or dislocation. IMPRESSION: 1. No acute abdominal or pelvic finding. Sigmoid diverticula Radiation optimization: All CT scans at this facility use at least one of these dose optimization guilherme hniques: Automated exposure control mA and/or kV adjustment per patient size (includes targeted exams where dose is matched to clinical indication) or iterative reconstruction. HS:Y
[2024-05-01 13:19] LABS: Basophils # (auto) 0 10 ^3/uL (0-0.2); Basophils % (auto) 0.5 % (0.0-2.0); Eosinophils # (auto) 0 10 ^3/uL (0-0.8); Eosinophils % (auto) 0.2 % (0.0-7.0); Hematocrit 44.3 % (36.0-46.0); Hemoglobin 15.4 g/dL (12.2-16.2); Lymphocytes # (auto) 2.5 10 ^3/uL (0.4-5.4); Lymphocytes % (auto) 26.5 % (10.0-50.0); Mean Corpuscular Hemoglobin 31.8 pg (28.0-32.0); Mean Corpuscular Hgb Conc. 34.7 g/dL (32.0-36.0); Mean Corpuscular Volume 91.7 fL (80.0-100.0); Monocytes # (auto) 0.4 10 ^3/uL (0-1.3); Monocytes % (auto) 4.5 % (0.0-12.0); Neutrophils # (auto) 6.5 10 ^3/uL (1.6-8.6); Neutrophils % (auto) 68.3 % (37.0-80.0); Platelet Count (auto) 299 10^3/uL (140-450); Red Blood Cells 4.83 10^6/uL (4.0-5.20); Red Cell Distribution Width 13.2 % (11.8-14.3); White Blood Cell 9.5 10^3/uL (4.4-10.8)
[2024-05-01 13:21] LABS: Urine Bacteria FEW /hpf (None Seen); Urine Blood Negative /uL (Negative); Urine Clarity Ex.Turbid (Clear); Urine Color Colorless (Yellow); Urine Protein, UAD Negative (Negative); Urine Specific Gravity > 1.050 (1.001-1.035); Urine Squamous Epithelial Cell None Seen /hpf (<5); Urine Urobilinogen Normal (Negative); Urine pH 5.5 (5.0-9.0)
[2024-05-01 13:42] LABS: Alanine Aminotransferase 10 U/L (7-40); Albumin 4.4 g/dL (3.2-4.8); Alkaline Phosphatase 87 U/L (46-116); Anion Gap 8 (5-15); Aspartate Aminotransferase 14 U/L (13-40); Blood Urea Nitrogen 19 mg/dL (9-23); Carbon Dioxide 23 mmol/L (20-31); Chloride 104 mmol/L (98-107); Lipase 35 U/L (12-53); Total Protein 7.2 g/dL (5.7-8.2)
[2024-05-01 13:56] LABS: Bilirubin, Total 1.2 mg/dL (0.2-1.0); Calcium 10.6 mg/dL (8.7-10.4); Glucose 117 mg/dL (74-106); Sodium 135 mmol/L (136-145)
[2024-05-01 14:35] VITALS: BP 105/69; PULSE 93; RESP 18; O2SAT 100
[2024-05-01] MEDS: ONDANSETRON ODT 4 MG TAB PO ONE (14:37)
== END 2024-05-01 14:41 | disposition home or self-care (01) ==
LOC: ER 11:19
DX: S30.1XXA Contusion of abdominal wall, initial encounter (principal); E11.9 Type 2 diabetes mellitus without complications; R11.2 Nausea with vomiting, unspecified; K21.9 Gastro-esophageal reflux disease without esophagitis; F17.210 Nicotine dependence, cigarettes, uncomplicated; F41.9 Anxiety disorder, unspecified; Z85.9 Personal history of malignant neoplasm, unspecified; Z90.49 Acquired absence of other specified parts of digestive tract; Z87.440 Personal history of urinary (tract) infections; Z90.710 Acquired absence of both cervix and uterus; W01.0XXA Fall on same level from slipping, tripping and stumbling without subsequent striking against object, initial encounter; Y93.89 Activity, other specified; Y92.89 Other specified places as the place of occurrence of the external cause; Y99.8 Other external cause status
CPT/HCPCS: 36415; 74177; 80053; 81001; 83690; 85025; 96374; 99285; J2405; Q0162; Q9967

== ENCOUNTER 2024-10-17 12:03 | Emergency (ER) | payer MEDICAID ==
[~2024-10-17] VITALS: Ht 154.9 cm; Wt 54.8 kg
--- NOTE | 2024-10-17 12:31 | ED.PDOC ---
GI ASSESSMENT HPI Comments This is a 59 year old female presenting to the ED with chief complaint of constipation. Patient reports that she has been experiencing constipation for the past 2 months, being prescribed multiple laxatives from her PCP, but no relief has been noted. Patient relays that she has had some diarrhea with her last bowel movement being yesterday, however, she still feels hard stool inside her. Patient denies any nausea, vomiting, fever, chills, or rectal bleeding. Time Seen by MD: 12:27 Primary Care Provider: SREEDHAR Reviewed Notes: Nurses Notes, Medications, Allergies Allergies: Coded Allergies: NO KNOWN ALLERGIES (Unverified , 06/19/11) Home Meds Active Scripts Sucralfate (CARAFATE SUSP) 1 Gm/10 Ml Ss, 1 GM PO QIDACHS, #1200 ML Prov:CHILO TREVINO MD 10/14/21 Pantoprazole Sodium Sesquihydr (Pantoprazole Sodium) 40 Mg Tab, 40 MG PO BID, #60 TAB Prov:CHILO TREVINO MD 10/14/21 Levofloxacin (Levaquin) 500 Mg Tab, 500 MG PO DAILY, #5 TAB Prov:CHILO TREVINO MD 10/14/21 Azithromycin (Zithromax) 500 Mg Tab, 1 TAB PO DAILY, #5 TAB Prov:SEBASTIÁN TREVINO MD 08/31/19 Reported Medications Insulin Glargine (Basaglar Kwikpen) 100 Unit/Ml Inj, 52 UNIT SC DAILY, INJ 10/12/21 Oxybutynin Chloride (Oxybutynin Chloride) 5 Mg Tab, 5 MG PO DAILY, TAB 10/12/21 Citalopram Hydrobromide (Citalopram Hydrobromide) 20 Mg Tab, 20 MG PO DAILY for 30 Days, MG 10/12/21 Metformin Hydrochloride (Metformin Hcl) 500 Mg Tab, 2000 MG PO DAILY for 30 Days, MG 10/12/21 [Tramadol Hcl50 Mg] (Tramadol Hcl) 50 MG TAB No Conflict Check, MG PO PRN 08/30/12 [Bupropion Yxf358 Mg] (Bupropion Hcl) 100 MG TAB No Conflict Check, MG 08/30/12 [Lmuutfycmgv30 Mg] (Simvastatin) 20 MG TAB No Conflict Check, MG PO DAILY 5/21/13 [Omeprazole Dr 20 Mg Capsule] No Conflict Check, PO DAILY 08/30/12 Information Source: Patient Mode of Arrival: Ambulatory Timing: Months Duration: Since onset Prehospital treatment: None Quality: Burning, Sharp Vomitus: None Stool: Impaction, Watery Severity: Moderate Recent: None Recent Hx of: None Pain Location: Diffuse Modifying Factors: Nothing Associated sign and symptoms: Diarrhea, Constipation, Abdominal Pain Past Medical History PAST MEDICAL HISTORY: Anxiety, Cancer, DM, GERD, High Lipids, UTI'S Surgical History: Cholecystectomy, , Hysterectomy Surgical History (Other): Lap band/removal, bladder sling/removal [employer] History: Cervical Cancer Family History Family History: Reviewed,noncontributory to illness, Family hx of DM, Family hx of Cancer, Family hx of HTN Social History Smoker: Cigarettes Alcohol: Sober Drugs: Denies Drug Use Lives In: Home Constitutional: denies: chills, diaphoresis, fatigue, fever, malaise, sweats, weakness, others EENTM: denies: blurred vision, double vision, ear bleeding, ear discharge, ear drainage, ear pain, ear ringing, eye pain, eye redness, hearing loss, mouth pain, mouth swelling, nasal discharge, nose bleeding, nose congestion, nose pain, photophobia, tearing, throat pain, throat swelling, voice changes, others Respiratory: denies: cough, hemoptysis, orthopnea, SOB at rest, shortness of breath, SOB with excertion, stridor, wheezing, others Cardiovascular: denies: chest pain, dizzy spells, diaphoresis, Dyspnea on exertion, edema, irregular heart beat, left arm pain, lightheadedness, palpitations, PND, syncope, others Gastrointestinal: reports: abdominal pain, constipated, diarrhea; denies: abdomen distended, blood streaked bowels, dysphagia, difficulty swallowing, hematemesis, melena, nausea, poor appetite, poor fluid intake, rectal bleeding, rectal pain, vomiting, others Genitourinary: denies: abnormal vagina bleeding, burning, dyspareunia, dysuria, flank pain, frequency, hematuria, incontinence, pain, , vagina discharge, urgency, others Neurological: denies: dizziness, fainting, headache, left sided numbness, left sided weakness, numbness, paresthesia, pre-existing deficit, right sided numbness, right sided weakness, seizure, speech problems, tingling, tremors, weakness, others Musculoskeletal: denies: back pain, gout, joint pain, joint swelling, muscle pain, muscle stiffness, neck pain, others Integumetry: denies: bruises, change in color, change in hair/nails, dryness, laceration, lesions, lumps, rash, wounds, others Allergic/Immunocompromised: denies: Difficulty Healing, Frequent Infections, Hives, Itching, others Hematologic/Lymphatic: denies: anemia, blood clots, easy bleeding, easy bruising, swollen glands, others Endocrine: denies: excessive hunger, excessive sweating, excessive thirst, excessive urination, flushing, intolerance to cold, intolerance to heat, unexplained weight gain, unexplained weight loss, others Psychiatric: denies: anxiety, bipolar disorder, depression, hopeless, panic disorder, schizophrenia, sleepless, suicidal, others All Other Systems: Reviewed and Negative Physical Exam General Appearance: No Apparent Distress HEENT: Normal ENT Inspection, Pharynx Normal, TMs Normal Neck: Full Range of Motion, Non-Tender, Normal, Normal Inspection Respiratory: Chest Non-Tender, Lungs Clear, No Accessory Muscle Use, No Respiratory Distress, Normal Breath Sounds Cardiovascular: No Edema, No JVD, No Murmur, No Gallop, Normal Peripheral Pulses, Regular Rate/Rhythm Breast Exam: Deferred Gastrointestinal: No Organomegaly, Non Tender, No Pulsatile Mass, Normal Bowel Sounds, Soft Genitalia: Deferred Pelvic: Deferred Rectal: Deferred Extremities: No calf tenderness, Normal capillary refill, Normal inspection, Normal range of motion, Non-tender, No pedal edema Musculoskeletal : Apperance: Normal Neurologic: Alert, machine heel seat laster II-XII nml as Tested, No Motor Deficits, Normal Affect, Normal Mood, No Sensory Deficits Cerebellar Function: Normal Reflexes: Normal Skin: Dry, Normal Color, Warm Lymphatic: No Adenopathy Was a procedure done? Was a procedure done?: No GI differential Dx Differential Diagnosis: Gastritis/PUD, Gastroenteritis, Pancreatitis, Electrolyte Imbalance, Food Poisoning X-Ray, Labs, Meds, VS Vital Signs Date Time Temp Pulse Resp B/P (MAP) Pulse Ox O2 Delivery O2 Flow Rate FiO2 10/17/24 12:37 98.6 87 20 127/80 (96) 96 98.6 Lab Test 10/17/24 12:49 10/17/24 12:27 Range/Units White Blood Count 6.4 4.4-10.8 10^3/uL Red Blood Count 3.87 L 4.0-5.20 10^6/uL Hemoglobin 12.8 12.2-16.2 g/dL Hematocrit 36.8 36.0-46.0 % Mean Corpuscular Volume 95.2 80.0-100.0 fL Mean Corpuscular Hemoglobin 33.0 H 28.0-32.0 pg Mean Corpuscular Hemoglobin Concent 34.7 32.0-36.0 g/dL Red Cell Distribution Width 13.1 11.8-14.3 % Platelet Count 254 140-450 10^3/uL Mean Platelet Volume 7.6 6.9-10.8 fL Neutrophils (%) (Auto) 67.2 37.0-80.0 % Lymphocytes (%) (Auto) 25.8 10.0-50.0 % Monocytes (%) (Auto) 5.8 0.0-12.0 % Eosinophils (%) (Auto) 0.8 0.0-7.0 % Basophils (%) (Auto) 0.4 0.0-2.0 % Neutrophils # (Auto) 4.3 1.6-8.6 10 ^3/uL Lymphocytes # (Auto) 1.7 0.4-5.4 10 ^3/uL Monocytes # (Auto) 0.4 0-1.3 10 ^3/uL Eosinophils # (Auto) 0.1 0-0.8 10 ^3/uL Basophils # (Auto) 0 0-0.2 10 ^3/uL Nucleated Red Blood Cells 0.0 % Sodium Level 141 136-145 mmol/L Potassium Level 4.7 3.5-5.1 mmol/L Chloride Level 107 98-107 mmol/L Carbon Dioxide Level 28 20-31 mmol/L Anion Gap 6 5-15 Blood Urea Nitrogen 8 L 9-23 mg/dL Creatinine 0.73 0.550-1.02 mg/dL Glomerular Filtration Rate Calc 95 >90 mL/min BUN/Creatinine Ratio 11.0 10.0-20.0 Serum Glucose 276 H 74-106 mg/dL Calcium Level 10.3 8.7-10.4 mg/dL Total Bilirubin 0.5 0.2-1.0 mg/dL Aspartate Amino Transferase (AST) 13 13-40 U/L Alanine Aminotransferase (ALT) < 9 7-40 U/L Alkaline Phosphatase 60 46-116 U/L Total Protein 6.4 5.7-8.2 g/dL Albumin 4.1 3.2-4.8 g/dL POC Glucose 283 H 70-106 mg/dl CT Abd/Pel indicates: No acute intraabdominal abnormality. The CBC and chemistry panel are within normal limits The patient is being discharged The patient will follow up primary care doctor The patient return to emergency department's condition worsens Images Reviewed?: Images reviewed and evaluated by me Time of 1ST Reevaluation: 13:52 Reevaluation 1ST: Unchanged Patient Education/Counseling: Diagnosis, Treatment, Prognosis, Need For Follow Up Family Education/Counseling: No Family Present Additional Information Reviewed patient's previous visit(s): 05/01/24 for abdominal contusion The following tests were ordered, and results were reviewed by me: Additional information was gathered from interviewing the following independent historian: None I reviewed and agreed with the following test results read by other provider: I discussed treatments and results with medical personnel and: Patient Comprehensive systems review obtained and negative except for what is stated in the HPI. SEPSIS Sepsis Screen Physician Orders Urinalysis (10/17/24 12:29) Ct Ab Pel Wo Con-No Oral Or Iv (10/17/24 12:29) Vital Signs Date Time Temp Pulse Resp B/P (MAP) Pulse Ox O2 Delivery O2 Flow Rate FiO2 10/17/24 12:37 98.6 87 20 127/80 (96) 96 98.6 Laboratory Tests Test 10/17/24 12:49 White Blood Count 6.4 10^3/uL (4.4-10.8) Departure 1 Departure Time of Disposition: 13:51 Impression: Primary Impression: Abdominal pain Qualified Codes: R10.9 - Unspecified abdominal pain Disposition: 01 HOME / SELF CARE / HOMELESS Condition: Fair Discharged With: Self Critical Care Note Critical Care Time?: No Stability Stability form required: No Heart Score Heart Score: Heart Score Response (Comments) Value History N/A 0 EKG N/A 0 Age N/A 0 Risk Factors N/A 0 Troponin N/A 0 Total 0 I personally scribed for ANDREAS JULIO MD ([email or web address]) on 10/17/24 at 12:31. Electronically submitted by Jimmy Butts ([email or web address]). I personally scribed for ANDREAS JULIO MD ([email or web address]) on 10/17/24 at 13:05. Electronically submitted by Jimmy Butts ([email or web address]). ANDREAS JULIO MD Oct 17, 2024 12:31
--- NOTE | 2024-10-17 13:03 | DVH ---
CT CT AB PEL WO CON-NO ORAL OR IV INDICATION: pain EXAM DATE: 10/17/2024 12:32 PM COMPARISON: CT ABD PELVIS WO CONTRAST on DOS: 10/11/21, CT ABD PELVIS WO CONTRAST on DOS: 02/07/20 RADIATION DOSE: CTDIvol: 5 mGy, DLP: 278 mGy*cm PROCEDURE: Helical CT images were obtained of the abdomen and pelvis without IV contrast Sagittal and coronal reconstructions are provided. ORAL CONTRAST: None. ADDITIONAL IMAGES / REFORMATS: None All C T scans at this medical facility are performed using dose modulation techniques as appropriate to a p erformed exam including the following: Automated exposure control was utilized; adjustment of the MA and/or KV according to patient size; and use of iterative reconstruction technique. FINDINGS: LUNG BASE: Normal. LIVER: Normal. GALLBLADDER AND BILIARY TREE: Katharina clips are seen. No intra- or extrahepatic biliary ductal dilation . PANCREAS: Normal. SPLEEN: Normal. BOWEL: Normal. Normal appendix. ADRENALS: Normal. KIDNEYS AND URETER: Normal. BLADDER: Normal. REPRODUCTIVE ORGANS: Normal. LYMPH NODES:No lymphadenopathy. PERITONEUM: No ascites or free air. No other fluid collection. VESSELS: Scattered atherosclerotic calcifications are noted. RETROPERITONEUM: Normal. ABDOMINAL WALL: Normal. BONES: Scattered osseous degenerative changes are noted. IMPRESSION: No acute intraabdominal abnormality.
[2024-10-17 13:22] LABS: Hematocrit 36.8 % (36.0-46.0); Hemoglobin 12.8 g/dL (12.2-16.2); Mean Corpuscular Hemoglobin 33.0 pg (28.0-32.0); Mean Corpuscular Volume 95.2 fL (80.0-100.0); Nucleated Red Blood Cells % 0.0 %
[2024-10-17 13:42] LABS: Albumin 4.1 g/dL (3.2-4.8); Alkaline Phosphatase 60 U/L (46-116); Anion Gap 6 (5-15); BUN/Creatinine Ratio 11.0 (10.0-20.0); Bilirubin, Total 0.5 mg/dL (0.2-1.0); Calcium 10.3 mg/dL (8.7-10.4); Carbon Dioxide 28 mmol/L (20-31); Chloride 107 mmol/L (98-107); Potassium 4.7 mmol/L (3.5-5.1); Sodium 141 mmol/L (136-145); Total Protein 6.4 g/dL (5.7-8.2)
[2024-10-17 13:46] LABS: Alanine Aminotransferase < 9 U/L (7-40); Blood Urea Nitrogen 8 mg/dL (9-23); Glucose 276 mg/dL (74-106)
[2024-10-17 14:17] VITALS: BP 120/74; PULSE 92; RESP 20; TEMP 97.4; O2SAT 98
[2024-10-17] MEDS ORDERED: TRAM-626 PO (14:19)
== END 2024-10-17 14:23 | disposition home or self-care (01) ==
LOC: ER 12:03
DX: R10.84 Generalized abdominal pain (principal); F17.210 Nicotine dependence, cigarettes, uncomplicated; E11.9 Type 2 diabetes mellitus without complications; F41.9 Anxiety disorder, unspecified; K21.9 Gastro-esophageal reflux disease without esophagitis; E78.5 Hyperlipidemia, unspecified; Z87.440 Personal history of urinary (tract) infections; Z90.710 Acquired absence of both cervix and uterus; Z79.899 Other long term (current) drug therapy; Z90.49 Acquired absence of other specified parts of digestive tract; Z79.84 Long term (current) use of oral hypoglycemic drugs; Z79.4 Long term (current) use of insulin
CPT/HCPCS: 36415; 74176; 80053; 82947; 82962; 85025

== ENCOUNTER 2024-12-23 11:45 | Inpatient (IN) | payer MEDICAID ==
[~2024-12-23] VITALS: Ht 157.5 cm; Wt 48.4 kg
[~2024-12-23 11:45] MED LIST changes: +TRAM-626 PO
--- NOTE | 2024-12-23 12:18 | ED.PDOC ---
GI ASSESSMENT HPI Comments 59 y.o female presents to the ED via EMS for a chief complaint of abdominal pain associated with nausea, hematemesis, constipation that started 3-4 weeks ago. Patient has been seem multiple times at this ED including [facility] where her PCP referred her to and [facility]. Patient has gotten multiple CT scans down at each facility which resulted non acute and was referred to see a GI. Patient has an appointment with GI on 01/17/25, but states pain is severe, sharp and rating a 10/10 on the pain scale. Patient mentions history of hematemesis the past 2-3 weeks, vomiting chunks of bright red blood and now has more of a green and yellowish output. She denies any fever, chills, chest pain, SOB. Chief Complaint: Abdominal Pain Time Seen by MD: 12:05 Primary Care Provider: PITO Reviewed Notes: Nurses Notes, News Videotape Editor Notes, Medications, Allergies Allergies: Coded Allergies: NO KNOWN ALLERGIES (Unverified , 06/19/11) Home Meds Active Scripts Tramadol HCl (Tramadol HCl) 50 Mg Tab, 50 MG PO Q8HP PRN for 5 Days, #15 TAB Prov:ANDREAS JULIO MD 10/17/24 Sucralfate (CARAFATE SUSP) 1 Gm/10 Ml Ss, 1 GM PO QIDACHS, #1200 ML Prov:CHILO TREVINO MD 10/14/21 Pantoprazole Sodium Sesquihydr (Pantoprazole Sodium) 40 Mg Tab, 40 MG PO BID, #60 TAB Prov:CHILO TREVINO MD 10/14/21 Levofloxacin (Levaquin) 500 Mg Tab, 500 MG PO DAILY, #5 TAB Prov:CHILO TREVINO MD 10/14/21 Azithromycin (Zithromax) 500 Mg Tab, 1 TAB PO DAILY, #5 TAB Prov:SEBASTIÁN TREVINO MD 08/31/19 Reported Medications Insulin Glargine (Basaglar Kwikpen) 100 Unit/Ml Inj, 52 UNIT SC DAILY, INJ 10/12/21 Oxybutynin Chloride (Oxybutynin Chloride) 5 Mg Tab, 5 MG PO DAILY, TAB 10/12/21 Citalopram Hydrobromide (Citalopram Hydrobromide) 20 Mg Tab, 20 MG PO DAILY for 30 Days, MG 10/12/21 Metformin Hydrochloride (Metformin Hcl) 500 Mg Tab, 2000 MG PO DAILY for 30 Days, MG 10/12/21 [Tramadol Hcl50 Mg] (Tramadol Hcl) 50 MG TAB No Conflict Check, MG PO PRN 08/30/12 [Bupropion Zxi970 Mg] (Bupropion Hcl) 100 MG TAB No Conflict Check, MG 08/30/12 [Vceiywgyzcf90 Mg] (Simvastatin) 20 MG TAB No Conflict Check, MG PO DAILY 08/30/12 [Omeprazole Dr 20 Mg Capsule] No Conflict Check, PO DAILY 08/30/12 Information Source: Patient, Emergency Med Personnel Mode of Arrival: EMS Duration: Since onset Quality: Sharp Vomitus: Hard, Bloody, Bright Red Bood Stool: Empty Severity: Moderate Recent: None Recent Hx of: None Pain Location: Diffuse Modifying Factors: Nothing Associated sign and symptoms: Nausea, Vomiting, Constipation, Hematemesis, Abdominal Pain Past Medical History PAST MEDICAL HISTORY: Anxiety, Cancer, DM, GERD, High Lipids, UTI'S Surgical History: Cholecystectomy, , Hysterectomy SPORTS OFFICIAL History: Cervical Cancer Family History Family History: Reviewed,noncontributory to illness, Family hx of DM, Family hx of Cancer, Family hx of HTN Social History Smoker: Cigarettes Alcohol: Sober Drugs: Denies Drug Use Lives In: Home Constitutional: denies: chills, diaphoresis, fatigue, fever, malaise, sweats, weakness, others EENTM: denies: blurred vision, double vision, ear bleeding, ear discharge, ear drainage, ear pain, ear ringing, eye pain, eye redness, hearing loss, mouth pain, mouth swelling, nasal discharge, nose bleeding, nose congestion, nose pain, photophobia, tearing, throat pain, throat swelling, voice changes, others Respiratory: denies: cough, hemoptysis, orthopnea, SOB at rest, shortness of breath, SOB with excertion, stridor, wheezing, others Cardiovascular: denies: chest pain, dizzy spells, diaphoresis, Dyspnea on exertion, edema, irregular heart beat, left arm pain, lightheadedness, palpitations, PND, syncope, others Gastrointestinal: reports: abdominal pain, constipated, hematemesis, nausea, vomiting; denies: abdomen distended, blood streaked bowels, diarrhea, dysphagia, difficulty swallowing, melena, poor appetite, poor fluid intake, rectal bl eeding, rectal pain, others Genitourinary: denies: abnormal vagina bleeding, burning, dyspareunia, dysuria, flank pain, frequency, hematuria, incontinence, pain, , vagina discharge, urgency, others Neurological: denies: dizziness, fainting, headache, left sided numbness, left sided weakness, numbness, paresthesia, pre-existing deficit, right sided numbness, right sided weakness, seizure, speech problems, tingling, tremors, weakness, others Musculoskeletal: denies: back pain, gout, joint pain, joint swelling, muscle pain, muscle stiffness, neck pain, others Integumetry: denies: bruises, change in color, change in hair/nails, dryness, laceration, lesions, lumps, rash, wounds, others Allergic/Immunocompromised: denies: Difficulty Healing, Frequent Infections, Hives, Itching, others Hematologic/Lymphatic: denies: anemia, blood clots, easy bleeding, easy bruising, swollen glands, others Endocrine: denies: excessive hunger, excessive sweating, excessive thirst, excessive urination, flushing, intolerance to cold, intolerance to heat, unexplained weight gain, unexplained weight loss, others Psychiatric: denies: anxiety, bipolar disorder, depression, hopeless, panic disorder, schizophrenia, sleepless, suicidal, others All Other Systems: Reviewed and Negative Physical Exam General Appearance: Moderate Distress HEENT: Normal ENT Inspection, Pharynx Normal, TMs Normal Neck: Full Range of Motion, Non-Tender, Normal, Normal Inspection Respiratory: Chest Non-Tender, Lungs Clear, No Accessory Muscle Use, No Respiratory Distress, Normal Breath Sounds Cardiovascular: No Edema, No JVD, No Murmur, No Gallop, Normal Peripheral Pulses, Regular Rate/Rhythm Breast Exam: Deferred Gastrointestinal: Diffuse Genitalia: Deferred Pelvic: Deferred Rectal: Deferred Extremities: No calf tenderness, Normal capillary refill, Normal inspection, Normal range of motion, Non-tender, No pedal edema Musculoskeletal : Apperance: Normal Neurologic: Alert, wire photo operator II-XII nml as Tested, No Motor Deficits, Normal Affect, Normal Mood, No Sensory Deficits Cerebellar Function: Normal Reflexes: Normal Skin: Dry, Normal Color, Warm Peripheral Pulses: 3+ Radial (R), 3+ Radial (L) Lymphatic: No Adenopathy EKG EKG : Pulse Rate (adult): 70 [place]: Normal Cardiac Rhythm: NSR Block: None Hypertrophy: None ST: Normal Was a procedure done? Was a procedure done?: No GI differential Dx Differential Diagnosis: Constipation, Esophageal rupture, Esophagitis, Gastritis/PUD, Gastroenteritis, Inflammatory BD, Pancreatitis, Esophageal Varicies, Stress Ulcer X-Ray, Labs, Meds, VS Vital Signs Date Time Temp Pulse Resp B/P (MAP) Pulse Ox O2 Delivery O2 Flow Rate FiO2 12/23/24 13:48 70 12/23/24 11:45 97.8 77 18 109/78 98 97.8 Lab Test 12/23/24 12:48 Range/Units White Blood Count 7.4 4.4-10.8 10^3/uL Red Blood Count 4.84 4.0-5.20 10^6/uL Hemoglobin 15.9 12.2-16.2 g/dL Hematocrit 45.7 36.0-46.0 % Mean Corpuscular Volume 94.6 80.0-100.0 fL Mean Corpuscular Hemoglobin 32.8 H 28.0-32.0 pg Mean Corpuscular Hemoglobin Concent 34.7 32.0-36.0 g/dL Red Cell Distribution Width 13.7 11.8-14.3 % Platelet Count 263 140-450 10^3/uL Mean Platelet Volume 7.2 6.9-10.8 fL Neutrophils (%) (Auto) 81.6 H 37.0-80.0 % Lymphocytes (%) (Auto) 14.3 10.0-50.0 % Monocytes (%) (Auto) 3.8 0.0-12.0 % Eosinophils (%) (Auto) 0.1 0.0-7.0 % Basophils (%) (Auto) 0.2 0.0-2.0 % Neutrophils # (Auto) 6.0 1.6-8.6 10 ^3/uL Lymphocytes # (Auto) 1.1 0.4-5.4 10 ^3/uL Monocytes # (Auto) 0.3 0-1.3 10 ^3/uL Eosinophils # (Auto) 0 0-0.8 10 ^3/uL Basophils # (Auto) 0 0-0.2 10 ^3/uL Nucleated Red Blood Cells 0.1 % Sodium Level 137 136-145 mmol/L Potassium Level 4.7 3.5-5.1 mmol/L Chloride Level 100 98-107 mmol/L Carbon Dioxide Level 21 20-31 mmol/L Anion Gap 16 H 5-15 Blood Urea Nitrogen 11 9-23 mg/dL Creatinine 0.74 0.550-1.02 mg/dL Glomerular Filtration Rate Calc 94 >90 mL/min BUN/Creatinine Ratio 14.9 10.0-20.0 Serum Glucose 132 H 74-106 mg/dL Calcium Level 10.6 H 8.7-10.4 mg/dL [place] [address] Ph: [phone] 130 [phone] DIAGNOSTIC IMAGING Diagnostic Imaging Report : [id number] Signed PATIENT: YOSVANY KING ACCT: [id number] UNIT: [id number] : 1965 LOC: ER ROOM / BED: / AGE / SEX: 59 / F ADM STATUS: REG ER SERVICE 1220 ORDERING PHYSICIAN: MEERA MORENO MD PROCEDURE(s): ABPL - CT AB PEL WO CON-NO ORAL OR IV REASON: colon ORDER NUMBER(s): [id number], ACCESSION NUMBER(s): [id number] CLINICAL INFORMATION: Abdominal pain. TECHNIQUE: Axial CT images of the abdomen and pelvis were obtained without IV contrast. Coronal and sagittal reformatted images were obtained, reviewed, and stored. Evaluation of the parenchymal organs is limited without IV contrast. Evaluation of the bowel and mesentery is limited without oral contrast. All CT scans at this medical facility are performed using dose modulation techniques as appropriate to a performed exam including the following: Automated exposure control was utilized; adjustment of the MA and/or KV according to patient size; and use of iterative reconstruction technique. CTDIvol = 5.04 mGy DLP = 251.44 mGy-cm COMPARISON: CT CT AB PEL WO CON-NO ORAL OR IV on DOS: 10/17/24, CT CT AB PEL WITH IV CON ONLY on DOS: 05/01/24, CT ABD PELVIS WO CONTRAST on DOS: 10/11/21 FINDINGS: Lung bases: Lung bases are clear. Liver: Grossly unremarkable in its noncontrast enhanced appearance. No abnormal density or focal lesion identified. Biliary: Cholecystectomy. Spleen: Atrophic pancreas. Pancreas: Grossly unremarkable in its noncontrast enhanced appearance. Adrenal glands: Unremarkable. No mass. Kidneys: No hydronephrosis. No renal or ureteral calculi. Aorta/Vascular: Dense arterial calcification. No abdominal aortic aneurysm. Retroperitoneum: No mass or lymphadenopathy. Bowel/mesentery: No small bowel obstruction. No free air or free fluid. Appendix is visualized and appears unremarkable. Scattered colonic diverticula without adjacent inflammatory changes to suggest diverticulitis. Pelvic organs: Uterus is surgically absent. Bladder: Unremarkable. No mass. Abdominal wall: No mass or hernia. Bones: No acute fracture or suspicious intraosseous lesion. Likely bone island in the right proximal femur intertrochanteric region, unchanged. IMPRESSION: 1. Scattered colonic diverticula without adjacent inflammatory changes to suggest diverticulitis. 2. No acute abnormality identified in the abdomen or pelvis. 3. Nonacute findings as described above. ATED BY: BALTAZAR HOANG DO DICTATED DATE/TIME: 12/23/241305 SIGNED BY: BALTAZAR HOANG DO SIGNED DATE/TIME: 12/23/24 130 CC: Patient alert. Complaining of abdominal pain. CT scan of the abdomen does show diverticulitis. Vitals stable. Answering questions. Establish intravenous access. Was given fluids. Was given Rocephin. Was given Flagyl. Explained to the patient. Continue monitoring. Time of 1ST Reevaluation: 12:13 Reevaluation 1ST: Unchanged Patient Education/Counseling: Diagnosis, Treatment, Prognosis Family Education/Counseling: No Family Present SEPSIS Sepsis Screen Date sepsis recognized/suspect: Dec 23, 2024 Time Sepsis recognized/suspect: 1144 Recent Procedure: No On Antibiotic Therapy: No Respiratory Rate >20: No Heart Rate >90: No Temp<36 C (96.8 F) or >38.3 C: No SBP <90 or MAP <65 mmHG: No New Acute Mental Status Change: No Is the patient on CPAP, BIPAP,: No Physician Orders Urinalysis (12/23/24 12:20) Ct Ab Pel Wo Con-No Oral Or Iv (12/23/24 12:20) Vital Signs Date Time Temp Pulse Resp B/P (MAP) Pulse Ox O2 Delivery O2 Flow Rate FiO2 12/23/24 13:48 70 12/23/24 11:45 97.8 77 18 109/78 98 97.8 Laboratory Tests Test 12/23/24 12:48 White Blood Count 7.4 10^3/uL (4.4-10.8) Departure 1 Departure Time of Disposition: 15:26 Impression: Primary Impression: Diverticulitis of intestine Qualified Codes: K57.92 - Diverticulitis of intestine, part unspecified, without perforation or abscess without bleeding Additional Impression: Acute abdominal pain Disposition: ADMITTED INPATIENT Admit to: Med Surg Condition: Guarded Critical Care Note Critical Care Time?: No Stability Stability form required: No I personally scribed for MEERA MORENO MD ([email or web address]) on 12/23/24 at 12:18. Electronically submitted by Ines Whitney ([facility] I personally scribed for MEERA MORENO MD ([email or web address]) on 12/23/24 at 13:48. Electronically submitted by Shelby Slater ([employer]). I personally scribed for MEERA MORENO MD ([email or web address]) on 12/23/24 at 14:36. Electronically submitted by Shelby Slater ([employer]). MEERA MORENO MD Dec 23, 2024 12:18
[2024-12-23 13:03] LABS: Hematocrit 45.7 % (36.0-46.0); Hemoglobin 15.9 g/dL (12.2-16.2); Mean Corpuscular Hemoglobin 32.8 pg (28.0-32.0); Mean Corpuscular Volume 94.6 fL (80.0-100.0); Nucleated Red Blood Cells % 0.1 %
[2024-12-23 13:08] LABS: Chloride 100 mmol/L (98-107); Potassium 4.7 mmol/L (3.5-5.1); Sodium 137 mmol/L (136-145)
--- NOTE | 2024-12-23 13:08 | DVH ---
CLINICAL INFORMATION: Abdominal pain. TECHNIQUE: Axial CT images of the abdomen and pelvis were obtained without IV contrast. Coronal and s agittal reformatted images were obtained, reviewed, and stored. Evaluation of the parenchymal organs is limited without IV contrast. Evaluation of the bowel and mesentery is limited without oral contras t. All CT scans at this medical facility are performed using dose modulation techniques as appropriat e to a performed exam including the following: Automated exposure control was utilized; adjustment of the MA and/or KV according to patient size; and use of iterative reconstruction technique. CTDIvol = 5.04 mGy DLP = 251.44 mGy-cm COMPARISON: CT CT AB PEL WO CON-NO ORAL OR IV on DOS: 10/17/24, CT CT AB PEL WITH IV CON ONLY on DOS: , CT ABD PELVIS WO CONTRAST on DOS: 10/11/21 FINDINGS: Lung bases: Lung bases are clear. Liver: Grossly unremarkable in its noncontrast enhanced appearance. No abnormal density or focal lesi on identified. Biliary: Cholecystectomy. Spleen: Atrophic pancreas. Pancreas: Grossly unremarkable in its noncontrast enhanced appearance. Adrenal glands: Unremarkable. No mass. Kidneys: No hydronephrosis. No renal or ureteral calculi. Aorta/Vascular: Dense arterial calcification. No abdominal aortic aneurysm. Retroperitoneum: No mass or lymphadenopathy. Bowel/mesentery: No small bowel obstruction. No free air or free fluid. Appendix is visualized and ap pears unremarkable. Scattered colonic diverticula without adjacent inflammatory changes to suggest d iverticulitis. Pelvic organs: Uterus is surgically absent. Bladder: Unremarkable. No mass. Abdominal wall: No mass or hernia. Bones: No acute fracture or suspicious intraosseous lesion. Likely bone island in the right proximal femur intertrochanteric region, unchanged. IMPRESSION: 1. Scattered colonic diverticula without adjacent inflammatory changes to suggest diverticulitis. 2. No acute abnormality identified in the abdomen or pelvis. 3. Nonacute findings as described above.
[2024-12-23 13:09] LABS: Anion Gap 16 (5-15); Carbon Dioxide 21 mmol/L (20-31)
[2024-12-23 13:14] LABS: BUN/Creatinine Ratio 14.9 (10.0-20.0); Blood Urea Nitrogen 11 mg/dL (9-23)
[2024-12-23 13:21] LABS: Calcium 10.6 mg/dL (8.7-10.4); Glucose 132 mg/dL (74-106)
[2024-12-23 17:37] VITALS: PULSE 73; RESP 18; O2SAT 100
[2024-12-23] MEDS: SODIUM CHLORIDE 0.9% 1,000 ML IVB ONE (18:00)
[2024-12-23] MEDS: ONDANSETRON HCL 4 MG/2 ML VIAL IV ONE (18:03)
[2024-12-23] MEDS: MORPHINE SULFATE 4 MG/ML SYR/VIAL IV ONE (18:05)
[2024-12-23] MEDS ORDERED: ACETAMINOPHEN 325 MG TAB PO PRN (21:30)
[2024-12-23] MEDS ORDERED: DOCUSATE SOD 100 MG CAP PO PRN (21:30)
[2024-12-23] MEDS: PANTOPRAZOLE 40 MG/10 ML VIAL INJ IV ONE (21:30)
[2024-12-23] MEDS ORDERED: DEXTROSE (50%) 50ML SYRG IV PRN (21:30)
[2024-12-23] MEDS ORDERED: NITROGLYCERIN 0.4 MG SL TAB SL PRN (21:30)
[2024-12-23] MEDS ORDERED: MORPHINE SULFATE INJ 2 MG/ml SYRG IV PRN (21:30)
--- NOTE | 2024-12-23 21:36 | DVHHP2 ---
History of Present Illness Reason for Visit: Acute abdominal pain History of Present Illness The patient is a 59-year-old female with multiple past medical history including anxiety, DM, UTIs, and hyperlipidemia who presented to [facility] ED with complaint of abdominal pain for the past 3 weeks. Patient reports she has been having acute abdominal pain, associated with nausea, hematemesis, constipation, getting worse that prompted this visit. Patient has been seem multiple times at this ED including [place] where her PCP referred her to [facility]. Patient has gotten multiple CT scans down at each facility which resulted non acute and was referred to see a GI. Patient has an appointment with GI on 01/17/25, but states pain is severe, sharp and rating 10/10 numeric rating scale. The patient was seen and evaluated in the ED, laboratory data shows WBC 7.4, platelets 263, sodium 137, potassium 4.7, BUN 11, creatinine 0.74, glucose 132, calcium 10.6, lactic acid 1.5, blood pressure 156/69, heart rate 62, temperature 97.7 F, O2 saturation 9% on room air. Abdomen/pelvis CT revealing scattered colonic diverticula without adjacent inflammatory changes to suggest diverticulitis. Please see medication orders section in the computer. On my assessment, patient denied chest pain, no headache, no dizziness, no shortness of breaths, no diarrhea, no nausea or vomiting at this moment, no fever, no chills. Patient was admitted for further evaluation and medical management. Past Medical History Anxiety, Cervical Cancer, DM, GERD, High Lipids, UTI'S Past Surgical History Cholecystectomy, , Hysterectomy Family History Reviewed, noncontributory to the management of this case. Past Social History The patient lives at home, smokes cigarettes, sober alcohol, denies illicit drugs abuse. Review of Systems Constitutional: Yes: Weakness; No: Fever, Chills, Sweats, Malaise, Other Eyes: No: Pain, Vision change, Conjunctivae inflammation, Eyelid inflammation, Other, Redness ENT: No: Ear pain, Ear discharge, Nose pain, Nose discharge, Nose congestion, Mouth pain, Mouth swelling, Throat pain, Throat swelling, Other Respiratory: No: Cough, Dry, Shortness of breath, SOB with excertion, Wheezing, Hemoptysis, Pleuritic Pain, Sputum, Wheezing, Other Cardiovascular: No: Chest Pain, Palpitations, Orthopnea, Paroxysmal Noc. Dyspnea, Edema, Lt Headedness, Other Gastrointestinal: Nausea, Vomiting, Abdominal Pain, Constipation; No: Diarrhea, Melena, Hematochezia, Other Genitourinary: No Dysuria, No Frequency, No Incontinence, No Hematuria, No Retention, No Other Musculoskeletal: No: other, neck pain, shoulder pain, arm pain, back pain, hand pain, leg pain, foot pain Skin: No: Rash, Lesions, Jaundice, Bruising, Other Neurological: No: Weakness, Numbness, Incoordination, Change in speech, Confusion, Seizures, Other Allergies: Coded Allergies: NO KNOWN ALLERGIES (Unverified , 06/19/11) Exam Vital Signs Vital Signs Date Time Temp Pulse Resp B/P (MAP) Pulse Ox O2 Delivery O2 Flow Rate FiO2 12/23/24 18:27 62 18 156/69 12/23/24 17:37 100 Room Air* 0 21 12/23/24 17:37 97.7 97.7 General Appearance: Alert, Oriented X3, Cooperative, No acute distress HEENT: Atraumatic, PERRLA, EOMI, Mucous membr. moist/pink Respiratory: Normal air movement Cardiovascular: Regular rate, Normal S1, Normal S2, No murmurs Abdominal: Normal bowel sounds, Soft, No hepatospenomegaly, No masses, Other (Reports tenderness) Extremities: No clubbing, No cyanosis, No edema, Normal pulses, No tenderness/swelling Skin: No rashes, No breakdown, No significant lesion Neuro: Normal speech, Normal tone, Sensation intact, Cranial nerves 3-12 NL, Reflexes 2+, Other (Generalized weakness) Psych/Mental Status: Mental status NL, Mood NL Labs/Xrays Labs Test 12/23/24 15:37 12/23/24 12:48 Range/Units Lactic Acid Level 1.5 0.4-2.0 mmol/L White Blood Count 7.4 4.4-10.8 10^3/uL Red Blood Count 4.84 4.0-5.20 10^6/uL Hemoglobin 15.9 12.2-16.2 g/dL Hematocrit 45.7 36.0-46.0 % Mean Corpuscular Volume 94.6 80.0-100.0 fL Mean Corpuscular Hemoglobin 32.8 H 28.0-32.0 pg Mean Corpuscular Hemoglobin Concent 34.7 32.0-36.0 g/dL Red Cell Distribution Width 13.7 11.8-14.3 % Platelet Count 263 140-450 10^3/uL Mean Platelet Volume 7.2 6.9-10.8 fL Neutrophils (%) (Auto) 81.6 H 37.0-80.0 % Lymphocytes (%) (Auto) 14.3 10.0-50.0 % Monocytes (%) (Auto) 3.8 0.0-12.0 % Eosinophils (%) (Auto) 0.1 0.0-7.0 % Basophils (%) (Auto) 0.2 0.0-2.0 % Neutrophils # (Auto) 6.0 1.6-8.6 10 ^3/uL Lymphocytes # (Auto) 1.1 0.4-5.4 10 ^3/uL Monocytes # (Auto) 0.3 0-1.3 10 ^3/uL Eosinophils # (Auto) 0 0-0.8 10 ^3/uL Basophils # (Auto) 0 0-0.2 10 ^3/uL Nucleated Red Blood Cells 0.1 % Sodium Level 137 136-145 mmol/L Potassium Level 4.7 3.5-5.1 mmol/L Chloride Level 100 98-107 mmol/L Carbon Dioxide Level 21 20-31 mmol/L Anion Gap 16 H 5-15 Blood Urea Nitrogen 11 9-23 mg/dL Creatinine 0.74 0.550-1.02 mg/dL Glomerular Filtration Rate Calc 94 >90 mL/min BUN/Creatinine Ratio 14.9 10.0-20.0 Serum Glucose 132 H 74-106 mg/dL Calcium Level 10.6 H 8.7-10.4 mg/dL PATIENT: YOSVANY KING ACCT: [id number] UNIT: [id number] : 1965 LOC: ER ROOM / BED: / AGE / SEX: 59 / F ADM STATUS: REG ER SERVICE 1220 ORDERING PHYSICIAN: MEERA MORENO MD PROCEDURE(s): ABPL - CT AB PEL WO CON-NO ORAL OR IV REASON: colon ORDER NUMBER(s): [id number], ACCESSION NUMBER(s): [id number] CLINICAL INFORMATION: Abdominal pain. TECHNIQUE: Axial CT images of the abdomen and pelvis were obtained without IV contrast. Coronal and sagittal reformatted images were obtained, reviewed, and stored. Evaluation of the parenchymal organs is limited without IV contrast. Evaluation of the bowel and mesentery is limited without oral contrast. All CT scans at this medical facility are performed using dose modulation techniques as appropriate to a performed exam including the following: Automated exposure control was utilized; adjustment of the MA and/or KV according to patient size; and use of iterative reconstruction technique. CTDIvol = 5.04 mGy DLP = 251.44 mGy-cm COMPARISON: CT CT AB PEL WO CON-NO ORAL OR IV on DOS: 10/17/24, CT CT AB PEL WITH IV CON ONLY on DOS: 05/01/24, CT ABD PELVIS WO CONTRAST on DOS: 10/11/21 FINDINGS: Lung bases: Lung bases are clear. Liver: Grossly unremarkable in its noncontrast enhanced appearance. No abnormal density or focal lesion identified. Biliary: Cholecystectomy. Spleen: Atrophic pancreas. Pancreas: Grossly unremarkable in its noncontrast enhanced appearance. Adrenal glands: Unremarkable. No mass. Kidneys: No hydronephrosis. No renal or ureteral calculi. Aorta/Vascular: Dense arterial calcification. No abdominal aortic aneurysm. Retroperitoneum: No mass or lymphadenopathy. Bowel/mesentery: No small bowel obstruction. No free air or free fluid. Appendix is visualized and appears unremarkable. Scattered colonic diverticula without adjacent inflammatory changes to suggest diverticulitis. Pelvic organs: Uterus is surgically absent. Bladder: Unremarkable. No mass. Abdominal wall: No mass or hernia. Bones: No acute fracture or suspicious intraosseous lesion. Likely bone island in the right proximal femur intertrochanteric region, unchanged. IMPRESSION: 1. Scattered colonic diverticula without adjacent inflammatory changes to suggest diverticulitis. 2. No acute abnormality identified in the abdomen or pelvis. 3. Nonacute findings as described above. SEPSIS Sepsis Screen Date sepsis recognized/suspect: Dec 23, 2024 Time Sepsis recognized/suspect: 1144 Recent Procedure: No On Antibiotic Therapy: No Respiratory Rate >20: No Heart Rate >90: No Temp<36 C (96.8 F) or >38.3 C: No SBP <90 or MAP <65 mmHG: No New Acute Mental Status Change: No Is the patient on CPAP, BIPAP,: No Physician Orders Blood Culture (12/23/24 15:23) Metronidazole Ivpb Flagyl (12/23/24 22:00) Pantoprazole (Protonix) (12/23/24 21:30) Pantoprazole (Protonix) (12/24/24 10:00) * [facility] Scheduler (12/23/24 21:29) Ceftriaxone Ivpb Rocephin (12/24/24 09:00) Glucose Blood (Accu-Chek Comfort Curve T (12/24/24 00:00) Vital Signs Date Time Temp Pulse Resp B/P (MAP) Pulse Ox O2 Delivery O2 Flow Rate FiO2 12/23/24 18:27 62 18 156/69 12/23/24 18:05 73 18 139/79 12/23/24 17:37 73 18 100 Room Air* 0 21 12/23/24 17:37 97.7 73 18 137/80 (99) 100 97.7 12/23/24 13:48 70 Laboratory Tests Test 12/23/24 12:48 12/23/24 15:37 White Blood Count 7.4 10^3/uL (4.4-10.8) Lactic Acid Level 1.5 mmol/L (0.4-2.0) Medications Medications Dose Ordered Sig/Malina Route Start Time Stop Time Status Last Admin Dose Admin Ceftriaxone Sodium 50 ml @ 100 mls/hr ONCE ONCE IV 12/23/24 15:30 12/23/24 15:59 DC 12/23/24 18:03 100 MLS/HR Metronidazole 100 ml @ 100 mls/hr ONCE ONCE IV 12/23/24 15:30 12/23/24 16:29 DC 12/23/24 18:24 100 MLS/HR Morphine Sulfate 4 mg ONCE ONCE IV 12/23/24 12:30 12/23/24 12:31 DC 12/23/24 18:05 4 MG Ondansetron HCl 4 mg ONCE ONCE IV 12/23/24 12:30 12/23/24 12:31 DC 12/23/24 18:03 4 MG Sodium Chloride 1,000 ml @ 1,000 mls/hr Q1H ONCE IVB 12/23/24 12:30 12/23/24 13:29 DC 12/23/24 18:00 1,000 MLS/HR Assessment/Plan Assessment/Plan Acute abdominal pain Intractable nausea and vomiting Generalized weakness Diabetes mellitus with hyperglycemia Plan 1. Admit to telemetry unit 2. Breathing treatment 3. Pain control management 4. IV antibiotic management 5. Management of fluids and electrolytes 6. Consultation for GI/hospitalist 7. Diagnostic test abdomen/pelvis CT 8. DVT prophylaxis on SCDs 9. Repeat labs CBC, CMP in a.m. 10. Home medication reviewed and reconciled 11. Continue with current medical management 12. Treatment plan discussed with patient and RN. Patient verbalized understanding. Plan discussed with: Patient, Other (RN) My Orders Orders - CYNDIE LOPEZ DNP Procedure Category Date Status Time Metronidazole Ivpb PHA 12/23/24 Verified Flagyl 22:00 Pantoprazole PHA 12/23/24 Verified (Protonix) 21:30 Pantoprazole PHA 12/24/24 Verified (Protonix) 10:00 * [facility] Scheduler CONS 12/23/24 Verified 21:29 Ceftriaxone Ivpb PHA 12/24/24 Verified Rocephin 09:00 Glucose Blood PHA 12/24/24 Verified (Accu-Chek Comfort 00:00 Problem List: (1) Acute abdominal pain (2) Intractable nausea and vomiting (3) Generalized weakness (4) Diabetes mellitus with hyperglycemia Date of Service: Dec 23, 2024 Billing Provider: CYNDIE LOPEZ DNP Common Visit Codes: [id number] INP/OBS CARE (HIGH) CYNDIE LOPEZ DNP Dec 23, 2024 21:35
[2024-12-23 22:26] VITALS: BP 137/75; PULSE 67; RESP 23; TEMP 98; O2SAT 100
[2024-12-24] VITALS (17 sets, daily range): BP systolic 119–155; BP diastolic 67–90; PULSE 60–86; RESP 6–19; TEMP 97.5–98.1; O2SAT 95–100
[2024-12-24] MEDS: InsuLIN REG 1unit/0.01ml Soln (100units/ml) SC SCH
[2024-12-24] MEDS: ONDANSETRON HCL 4 MG/2 ML VIAL IV PRN (01:04)
[2024-12-24] MEDS: MORPHINE SULFATE INJ 2 MG/ml SYRG IV PRN (01:05)
[2024-12-24] MEDS: PANTOPRAZOLE 40 MG/10 ML VIAL INJ IV ONE (01:12)
[2024-12-24 05:39] LABS: Urine Protein, UAD TRACE (Negative)
[2024-12-24 06:26] LABS: Hematocrit 43.5 % (36.0-46.0); Hemoglobin 15.6 g/dL (12.2-16.2); Mean Corpuscular Hemoglobin 33.2 pg (28.0-32.0); Mean Corpuscular Volume 92.5 fL (80.0-100.0); Nucleated Red Blood Cells % 0.1 %
[2024-12-24 06:35] LABS: Alanine Aminotransferase 16 U/L (7-40); Albumin 4.2 g/dL (3.2-4.8); Alkaline Phosphatase 79 U/L (46-116); Anion Gap 17 (5-15); BUN/Creatinine Ratio 10.8 (10.0-20.0); Calcium 10.1 mg/dL (8.7-10.4); Chloride 102 mmol/L (98-107); Potassium 3.5 mmol/L (3.5-5.1); Sodium 138 mmol/L (136-145); Total Protein 6.9 g/dL (5.7-8.2)
[2024-12-24 06:49] LABS: Bilirubin, Total 1.3 mg/dL (0.2-1.0); Blood Urea Nitrogen 7 mg/dL (9-23); Carbon Dioxide 19 mmol/L (20-31); Glucose 114 mg/dL (74-106)
[2024-12-24] MEDS: PANTOPRAZOLE 40 MG/10 ML VIAL INJ IV SCH (09:27)
--- NOTE | 2024-12-24 10:19 | DVHINCON2 ---
Date of service: Dec 24, 2024 Referring Physician Antonio Edouard Reason for Consultation Abdominal pain History of Present Illness The patient is a 59-year-old female with multiple past medical history including anxiety, DM, UTIs, and hyperlipidemia who presented to [facility] ED with complaint of abdominal pain for the past 3 weeks. Patient reports she has been having acute abdominal pain, associated with nausea, hematemesis, constipation, getting worse that prompted this visit. Patient has been seem multiple times at ED including [place]; her PCP referred her to [facility]. Patient has gotten multiple CT scans down at each facility which resulted non acute and was referred to see a GI. Patient has an appointment with GI on 01/17/25, but states pain is severe, sharp and rating 10/10 numeric rating scale. Abdomen/pelvis CT revealing scattered colonic diverticula without adjacent inflammatory changes to suggest diverticulitis. Last EGD here by Dr Lex Montelongo Operative Report DATE OF OPERATION: 10/14/21 PROCEDURE: Upper Endoscopy. PREOPERATIVE INDICATION: The patient is a 56 -year-old female undergoing endoscopy for epigastric pain. POSTOPERATIVE DIAGNOSES: 1. Gastritis PROCEDURE PERFORMED BY: Lex Montelongo SCOPE: Olympus videoendoscope. Past Medical History Past Medical History Anxiety, Cervical Cancer, DM, GERD, High Lipids, UTI'S Past Surgical History Past Surgical History Cholecystectomy, , Hysterectomy Family History: Cervical cancer G8 MOTHER FH: brain tumor G8 BROTHER Hypertension G8 MOTHER G8 FATHER Social History Past Social History The patient lives at home, smokes cigarettes, sober alcohol, denies illicit drugs abuse. Allergies: Coded Allergies: NO KNOWN ALLERGIES (Unverified , 06/19/11) Home Meds Active Scripts Tramadol HCl (Tramadol HCl) 50 Mg Tab, 50 MG PO Q8HP PRN for 5 Days, #15 TAB Prov:ANDREAS JULIO MD 10/17/24 Sucralfate (CARAFATE SUSP) 1 Gm/10 Ml Ss, 1 GM PO QIDACHS, #1200 ML Prov:CHILO TREVINO MD 10/14/21 Pantoprazole Sodium Sesquihydr (Pantoprazole Sodium) 40 Mg Tab, 40 MG PO BID, #60 TAB Prov:CHILO TREVINO MD 10/14/21 Levofloxacin (Levaquin) 500 Mg Tab, 500 MG PO DAILY, #5 TAB Prov:MOQATTASH,TAREK T MD 10/14/21 Azithromycin (Zithromax) 500 Mg Tab, 1 TAB PO DAILY, #5 TAB Prov:SEBASTIÁN TREVINO MD 08/31/19 Reported Medications Insulin Glargine (Basaglar Kwikpen) 100 Unit/Ml Inj, 52 UNIT SC DAILY, INJ 10/12/21 Oxybutynin Chloride (Oxybutynin Chloride) 5 Mg Tab, 5 MG PO DAILY, TAB 10/12/21 Citalopram Hydrobromide (Citalopram Hydrobromide) 20 Mg Tab, 20 MG PO DAILY for 30 Days, MG 10/12/21 Metformin Hydrochloride (Metformin Hcl) 500 Mg Tab, 2000 MG PO DAILY for 30 Days, MG 10/12/21 [Tramadol Hcl50 Mg] (Tramadol Hcl) 50 MG TAB No Conflict Check, MG PO PRN 08/30/12 [Bupropion Ryf612 Mg] (Bupropion Hcl) 100 MG TAB No Conflict Check, MG 08/30/12 [Zctmzvitygm99 Mg] (Simvastatin) 20 MG TAB No Conflict Check, MG PO DAILY 08/30/12 [Omeprazole Dr 20 Mg Capsule] No Conflict Check, PO DAILY 08/30/12 Current Medications Current Medications Medications (Trade) Dose Ordered Sig/Malina Route PRN Reason Start Time Stop Time Status Last Admin Pantoprazole Sodium (Protonix) 40 mg DAILY IV 12/24/24 10:00 12/24/24 09:27 Ceftriaxone Sodium 50 ml @ 100 mls/hr DAILY@09 IV 12/24/24 09:00 12/24/24 09:27 Diagnostic Test (Pha) (Accu-Chek Comfort Curve T) 1 strip Q6HR 12/24/24 00:00 12/24/24 05:40 Insulin Human Regular (InsuLIN R) Q6HR SC 12/24/24 00:00 Dextrose 50 ml UD PRN IV Blood Sugar LESS THAN 60 12/23/24 21:30 Acetaminophen/ Hydrocodone Bitart (Climax 5/325MG Tab) 1 tab Q4HP PRN PO MODERATE PAIN (4-6 PAIN SCALE) 12/23/24 21:30 Ondansetron HCl (Zofran) 4 mg Q4HP PRN IV NAUSEA / VOMITING 12/23/24 21:30 12/24/24 01:04 Docusate Sodium (Colace Capsule) 100 mg BIDPRN PRN PO FOR CONSTIPATION 12/23/24 21:30 Acetaminophen (Tylenol Tablet) 650 mg Q6HP PRN PO PAIN SCALE 1-3 OR TEMP>100.4 12/23/24 21:30 Morphine Sulfate 2 mg Q4HPRN PRN IV SEVERE PAIN (7-10 PAIN SCALE) 12/23/24 21:30 12/24/24 01:05 Nitroglycerin (Ntrostat Sublingual) 0.4 mg Q5MINP PRN SL FOR CHEST PAIN 12/23/24 21:30 Morphine Sulfate 2 mg Q30M PRN IV FOR CHEST PAIN 12/23/24 21:30 Vital Signs Vital Signs Date Time Temp Pulse Resp B/P (MAP) Pulse Ox O2 Delivery O2 Flow Rate FiO2 12/24/24 09:07 98.1 63 16 136/75 (95) 99 98.1 12/24/24 00:15 Room Air* 0 21 Physical Exam General Appearance: Alert, Oriented X3, Cooperative, No acute distress Hemodynamically stable, no localizing signs Full physical examination deferred Labs/Diagnostic Data Labs Test 12/24/24 05:18 12/24/24 04:55 12/23/24 15:37 12/23/24 04:48 Range/Units POC Glucose 136 H 70-106 mg/dl White Blood Count 7.7 4.4-10.8 10^3/uL Red Blood Count 4.70 4.0-5.20 10^6/uL Hemoglobin 15.6 12.2-16.2 g/dL Hematocrit 43.5 36.0-46.0 % Mean Corpuscular Volume 92.5 80.0-100.0 fL Mean Corpuscular Hemoglobin 33.2 H 28.0-32.0 pg Mean Corpuscular Hemoglobin Concent 35.9 32.0-36.0 g/dL Red Cell Distribution Width 13.3 11.8-14.3 % Platelet Count 252 140-450 10^3/uL Mean Platelet Volume 7.4 6.9-10.8 fL Neutrophils (%) (Auto) 77.5 37.0-80.0 % Lymphocytes (%) (Auto) 16.8 10.0-50.0 % Monocytes (%) (Auto) 5.3 0.0-12.0 % Eosinophils (%) (Auto) 0.1 0.0-7.0 % Basophils (%) (Auto) 0.3 0.0-2.0 % Neutrophils # (Auto) 6.0 1.6-8.6 10 ^3/uL Lymphocytes # (Auto) 1.3 0.4-5.4 10 ^3/uL Monocytes # (Auto) 0.4 0-1.3 10 ^3/uL Eosinophils # (Auto) 0 0-0.8 10 ^3/uL Basophils # (Auto) 0 0-0.2 10 ^3/uL Nucleated Red Blood Cells 0.1 % Sodium Level 138 136-145 mmol/L Potassium Level 3.5 3.5-5.1 mmol/L Chloride Level 102 98-107 mmol/L Carbon Dioxide Level 19 L 20-31 mmol/L Anion Gap 17 H 5-15 Blood Urea Nitrogen 7 L 9-23 mg/dL Creatinine 0.65 0.550-1.02 mg/dL Glomerular Filtration Rate Calc 102 >90 mL/min BUN/Creatinine Ratio 10.8 10.0-20.0 Serum Glucose 114 H 74-106 mg/dL Calcium Level 10.1 8.7-10.4 mg/dL Total Bilirubin 1.3 H 0.2-1.0 mg/dL Aspartate Amino Transferase (AST) 14 13-40 U/L Alanine Aminotransferase (ALT) 16 7-40 U/L Alkaline Phosphatase 79 46-116 U/L Total Protein 6.9 5.7-8.2 g/dL Albumin 4.2 3.2-4.8 g/dL Lactic Acid Level 1.5 0.4-2.0 mmol/L Urine Color Yellow Yellow Urine Clarity Clear Clear Urine pH 6.5 5.0-9.0 Urine Specific Disney 1.024 1.001-1.035 Urine Protein Trace H Negative Urine Ketones 4+ H Negative Urine Blood Negative Negative /uL Urine Nitrite Negative Negative Urine Bilirubin Negative Negative Urine Urobilinogen 2 H Negative mg/dL Urine Leukocyte Esterase Negative Negative /uL Urine RBC <1 0 - 4 /hpf Urine Microscopic WBC 1 0-5 /HPF Urine Squamous Epithelial Cells Few <5 /hpf Urine Bacteria None seen None Seen /hpf Urine Mucus Few None Seen Urine Glucose Trace Normal mg/dL IMPRESSION: 1. Scattered colonic diverticula without adjacent inflammatory changes to suggest diverticulitis. 2. No acute abnormality identified in the abdomen or pelvis. 3. Nonacute findings as described above. Problems(with codes): (1) Intractable nausea and vomiting (2) Abdominal pain (3) Constipation Plan/Recommendation PLAN Drug screen Protonix and Carafate Colace and MiraLax for constipation Monitor labs and clinical status Advance diet as tolerated Elective colonoscopy for colon cancer screening if not recently done I will review [facility] records Plan discussed with: Other KARTHIK PINEDA MD Dec 24, 2024 10:18
[2024-12-24 12:20] LABS: Cannabinoid Screen, Urine Neg (NEGATIVE)
[2024-12-24 12:21] LABS: Amphetamine Screen, Urine Neg (NEGATIVE); Barbiturate Scree,Urine Neg (NEGATIVE); Benzodiazephine Screen, Urine Neg (NEGATIVE); Cocaine Screen, Urine Neg (NEGATIVE); Opiate Scree,Urine Pos (NEGATIVE); Phencyclidine Screen, Urine Neg (NEGATIVE)
--- NOTE | 2024-12-24 12:59 | DVHPN2 ---
Subjective Patient is still nauseous with abdominal pain Reviewed: H&P Changes from previous H/P or p: No Changes General: Per HPI Eyes: No Pain, No Vision change, No Conjunctivae inflammation, No Eyelid inflammation, No Other, No Redness ENT: No Ear pain, No Ear discharge, No Nose pain, No Nose discharge, No Nose congestion, No Mouth pain, No Mouth swelling, No Throat pain, No Throat swelling, No Other Cardiovascular: No Chest Pain, No Palpitations, No Orthopnea, No Paroxysmal Noc. Dyspnea, No Edema, No Lt Headedness, No Other Respiratory: No Cough, No Dry, No Shortness of breath, No SOB with excertion, No Wheezing, No Hemoptysis, No Pleuritic Pain, No Sputum, No Other Gastrointestinal: Nausea, Vomiting, Abdominal Pain; No Diarrhea; Constipation; No Melena, No Hematochezia, No Other Genitourinary: No Dysuria, No Frequency, No Incontinence, No Hematuria, No Retention, No Other Musculoskeletal: No other, No neck pain, No shoulder pain, No arm pain, No back pain, No hand pain, No leg pain, No foot pain Skin: No Rash, No Lesions, No Jaundice, No Bruising, No Other Objective Vitals Vital Signs Date Time Temp Pulse Resp B/P (MAP) Pulse Ox O2 Delivery O2 Flow Rate FiO2 12/24/24 09:07 98.1 63 16 136/75 (95) 99 98.1 12/24/24 00:15 Room Air* 0 21 Intake/Output Intake and Output 12/24/24 07:00 Intake Total 100 ml Balance 100 ml Intake Oral 0 ml IV Total 100 ml Exam GEN: Healthy appearing, well-developed, NAD. HEENT: NC/AT; MMM. CV: RRR, no m/r/g. LUNGS: CTAB, no w/r/c. ABD: Hypoactive bowel sounds, tender to palpation epigastrium EXT: skin Warm, well perfused. no rashes. No clubbing, cyanosis, or edema. NEURO: Ambulating with no limitations. No focal deficits. Medications Current Medications Medications Dose Ordered Sig/Malina Route Start Time Stop Time Status Last Admin Dose Admin Metronidazole 100 ml @ 100 mls/hr Q8H IV 12/23/24 02:30 12/24/24 11:09 100 MLS/HR Pantoprazole Sodium 40 mg DAILY IV 12/24/24 10:00 12/24/24 09:27 40 MG Ceftriaxone Sodium 50 ml @ 100 mls/hr DAILY@09 IV 12/24/24 09:00 12/24/24 09:27 100 MLS/HR Diagnostic Test (Pha) 1 strip Q6HR 12/24/24 00:00 12/24/24 05:40 1 STRIP Insulin Human Regular Q6HR SC 12/24/24 00:00 Dextrose 50 ml UD PRN IV 12/23/24 21:30 Acetaminophen/ Hydrocodone Bitart 1 tab Q4HP PRN PO 12/23/24 21:30 Ondansetron HCl 4 mg Q4HP PRN IV 12/23/24 21:30 12/24/24 10:44 4 MG Docusate Sodium 100 mg BIDPRN PRN PO 12/23/24 21:30 Acetaminophen 650 mg Q6HP PRN PO 12/23/24 21:30 Nitroglycerin 0.4 mg Q5MINP PRN SL 12/23/24 21:30 Morphine Sulfate 2 mg Q30M PRN IV 12/23/24 21:30 Ketorolac Tromethamine 15 mg Q6HPRN PRN IV 12/24/24 13:00 12/29/24 12:59 UNV Laboratory Results Laboratory Tests 12/24/24 04:55 Chemistry Test 12/24/24 04:55 Albumin 4.2 g/dL (3.2-4.8) Calcium Level 10.1 mg/dL (8.7-10.4) Total Protein 6.9 g/dL (5.7-8.2) LFT Test 12/24/24 04:55 Alanine Aminotransferase (ALT) 16 U/L (7-40) Alkaline Phosphatase 79 U/L (46-116) Aspartate Amino Transferase (AST) 14 U/L (13-40) Total Bilirubin 1.3 mg/dL (0.2-1.0) H Urinalysis Test 12/23/24 04:48 Urine Color Yellow (Yellow) Urine Clarity Clear (Clear) Urine pH 6.5 (5.0-9.0) Urine Specific [place] 1.024 (1.001-1.035) Urine Protein Trace (Negative) H Urine Ketones 4+ (Negative) H Urine Blood Negative /uL (Negative) Urine Nitrite Negative (Negative) Urine Bilirubin Negative (Negative) Urine Urobilinogen 2 mg/dL (Negative) H Urine Leukocyte Esterase Negative /uL (Negative) Urine RBC <1 /hpf (0 - 4) Urine Microscopic WBC 1 /HPF (0-5) Urine Squamous Epithelial Cells Few /hpf (<5) Urine Bacteria None seen /hpf (None Seen) Urine Mucus Few (None Seen) Urine Glucose Trace mg/dL (Normal) Labs and/or images reviewed: Labs reviewed by me, Image(s) reviewed by me Assessment/Plan Assessment/Plan 12/24: GI consult was placed on admit, recommending UDS, Protonix Carafate, Colace MiraLax, elective C scope outpatient. Otherwise continue IV antibiotics, IV fluids, prn antiemetic/analgesia. Patient has a anion gap, acidosis, history of taking Jardiance euglycemic DKA concern as possible we will get ABG, ketosis severe on UA. Lactic acidosis was negative -patient has history of taking Jardiance, significant gap with beta hydroxy butyrate, ABG shows metabolic alkalosis likely from emesis and hyperventilation. We will upgrade to D OU and start DKA protocol for euglycemic DKA., continuous insulin at 3 units per hour (no loading insulin, stop any long-acting insulin), maintain fluids with D5 half NS with 20 KCL at rate 200 cc/hour,. Titrate fluids and insulin per DKA protocol with goal to close gap. At gap closure can transition patient with 12 unit Lantus and to clear liquid diet, NPO otherwise. Can continue prn analgesia, prn antiemetics. [facility] to closely monitor potassium and gap. diagnosis: Acute gastroenteritis, infectious etiology likely Diverticulosis, possible early diverticulitis early DKA, early euglycemic DKA possible Respiratory alkalosis, with anion gap metabolic acidosis, with metabolic alkalosis from emesis Ketoacidosis, from DKA and/or starvation Intractable abdominal pain, likely due to above P.o. intolerance likely due to above intractable nausea, likely due to above Constipation possible anxiety DM hx UTIs hyperlipidemia Plan: Continue IV antibiotics Continue clear liquid diet Continue antiemetics Continue prn analgesia, GI following appreciate recommendations Continue Protonix Carafate Continue Colace MiraLax D OU Full code Plan discussed with: Patient My Orders Orders - DOMINIC VALLADARES MD Procedure Category Date Status Time Ketorolac Injection PHA 12/24/24 Logged (Toradol Injection) 13:00 Date of Service: Dec 24, 2024 Billing Provider: DOMINIC VALLADARES MD Common Visit Codes: [id number] CARE 30-74 MIN DOMINIC VALLADARES MD Dec 24, 2024 12:59
[2024-12-24] MEDS ORDERED: KETOROLAC TROMETH 30 MG/ML 1ML VIAL IV PRN (13:00)
[2024-12-24 14:07] LABS: Base Excess -1.5 mmol/L (-2.0-3.0)
[2024-12-24 14:26] LABS: Chloride 101 mmol/L (98-107)
[2024-12-24 14:27] LABS: Anion Gap 16 (5-15)
[2024-12-24 14:28] LABS: Calcium 9.3 mg/dL (8.7-10.4); Carbon Dioxide 19 mmol/L (20-31); Potassium 3.1 mmol/L (3.5-5.1); Sodium 136 mmol/L (136-145)
[2024-12-24 14:32] LABS: BUN/Creatinine Ratio 9.5 (10.0-20.0)
[2024-12-24 14:33] LABS: Blood Urea Nitrogen 6 mg/dL (9-23); Glucose 154 mg/dL (74-106)
[2024-12-24] MEDS: KETOROLAC TROMETH 30 MG/ML 1ML VIAL IV PRN (14:44)
[2024-12-24] MEDS ORDERED: DEXTROSE (50%) 50ML SYRG IV PRN (18:15)
[2024-12-24] MEDS: ACCU-CHEK COMFORT CURVE STRIP VI SCH ×2 (19:30)
[2024-12-24] MEDS: INSULIN DRIP 100 UNIT/100ML 100 ML IV ONE (19:35)
[2024-12-24] MEDS: INSULIN DRIP 100 UNIT/100ML 100 ML IV SCH (20:00)
[2024-12-24] MEDS: D5W/SOD CHL 0.45%/KCL 20MEQ 1,000 ML IV SCH (20:02)
[2024-12-25] VITALS (30 sets, daily range): BP systolic 120–169; BP diastolic 36–137; PULSE 56–93; RESP 10–21; TEMP 97.8–98.3; O2SAT 98–100
[2024-12-25 00:51] LABS: Chloride 99 mmol/L (98-107)
[2024-12-25 00:52] LABS: Anion Gap 11 (5-15); Calcium 9.6 mg/dL (8.7-10.4); Carbon Dioxide 26 mmol/L (20-31)
[2024-12-25 00:53] LABS: Potassium 3.5 mmol/L (3.5-5.1); Sodium 136 mmol/L (136-145)
[2024-12-25 00:57] LABS: BUN/Creatinine Ratio 13.3 (10.0-20.0)
[2024-12-25 01:03] LABS: Blood Urea Nitrogen 8 mg/dL (9-23); Glucose 134 mg/dL (74-106)
[2024-12-25 07:25] LABS: Alanine Aminotransferase 13 U/L (7-40); Albumin 3.8 g/dL (3.2-4.8); Alkaline Phosphatase 69 U/L (46-116); Anion Gap 14 (5-15); Calcium 9.4 mg/dL (8.7-10.4); Carbon Dioxide 22 mmol/L (20-31); Total Protein 6.2 g/dL (5.7-8.2)
[2024-12-25 07:27] LABS: BUN/Creatinine Ratio 8.5 (10.0-20.0); Bilirubin, Total 1.5 mg/dL (0.2-1.0); Blood Urea Nitrogen < 5 mg/dL (9-23); Chloride 97 mmol/L (98-107); Glucose 147 mg/dL (74-106); Potassium 3.4 mmol/L (3.5-5.1); Sodium 133 mmol/L (136-145)
[2024-12-25 07:33] LABS: Hematocrit 41.9 % (36.0-46.0); Hemoglobin 15.3 g/dL (12.2-16.2); Mean Corpuscular Hemoglobin 33.2 pg (28.0-32.0); Mean Corpuscular Volume 91.2 fL (80.0-100.0); Nucleated Red Blood Cells % 0.2 %
[2024-12-25] MEDS: MORPHINE SULFATE INJ 2 MG/ml SYRG ONE (11:18)
[2024-12-25] MEDS: PANTOPRAZOLE 40 MG/10 ML VIAL INJ IV ONE (11:18)
--- NOTE | 2024-12-25 12:07 | DVHPN2 ---
Subjective Patient is still nauseous with abdominal pain Reviewed: H&P Changes from previous H/P or p: No Changes General: Per HPI Eyes: No Pain, No Vision change, No Conjunctivae inflammation, No Eyelid inflammation, No Other, No Redness ENT: No Ear pain, No Ear discharge, No Nose pain, No Nose discharge, No Nose congestion, No Mouth pain, No Mouth swelling, No Throat pain, No Throat swelling, No Other Cardiovascular: No Chest Pain, No Palpitations, No Orthopnea, No Paroxysmal Noc. Dyspnea, No Edema, No Lt Headedness, No Other Respiratory: No Cough, No Dry, No Shortness of breath, No SOB with excertion, No Wheezing, No Hemoptysis, No Pleuritic Pain, No Sputum, No Other Gastrointestinal: Nausea, Vomiting, Abdominal Pain; No Diarrhea; Constipation; No Melena, No Hematochezia, No Other Genitourinary: No Dysuria, No Frequency, No Incontinence, No Hematuria, No Retention, No Other Musculoskeletal: No other, No neck pain, No shoulder pain, No arm pain, No back pain, No hand pain, No leg pain, No foot pain Skin: No Rash, No Lesions, No Jaundice, No Bruising, No Other Objective Vitals Vital Signs Date Time Temp Pulse Resp B/P (MAP) Pulse Ox O2 Delivery O2 Flow Rate FiO2 12/25/24 10:00 61 10 121/68 (85) 98 12/25/24 08:00 Room Air* 0 21 12/25/24 08:00 97.8 97.8 Intake/Output Intake and Output 12/25/24 07:00 Intake Total 2433.5 ml Output Total 3 ml Balance 2430.5 ml Intake Oral 288 ml IV Total 2145.5 ml Output Urine Total 3 ml # Voids 4 Exam GEN: Healthy appearing, well-developed, NAD. HEENT: NC/AT; MMM. CV: RRR, no m/r/g. LUNGS: CTAB, no w/r/c. ABD: Hypoactive bowel sounds, tender to palpation epigastrium EXT: skin Warm, well perfused. no rashes. No clubbing, cyanosis, or edema. NEURO: Ambulating with no limitations. No focal deficits. Medications Current Medications Medications Dose Ordered Sig/Malina Route Start Time Stop Time Status Last Admin Dose Admin Metronidazole 100 ml @ 100 mls/hr Q8H IV 12/23/24 02:30 12/25/24 10:15 100 MLS/HR Pantoprazole Sodium 40 mg DAILY IV 12/24/24 10:00 12/25/24 09:33 40 MG Ceftriaxone Sodium 50 ml @ 100 mls/hr DAILY@09 IV 12/24/24 09:00 12/25/24 08:35 100 MLS/HR Acetaminophen/ Hydrocodone Bitart 1 tab Q4HP PRN PO 12/23/24 21:30 Ondansetron HCl 4 mg Q4HP PRN IV 12/23/24 21:30 12/25/24 09:15 4 MG Docusate Sodium 100 mg BIDPRN PRN PO 12/23/24 21:30 Acetaminophen 650 mg Q6HP PRN PO 12/23/24 21:30 Nitroglycerin 0.4 mg Q5MINP PRN SL 12/23/24 21:30 Morphine Sulfate 2 mg Q30M PRN IV 12/23/24 21:30 Ketorolac Tromethamine 15 mg Q6HPRN PRN IV 12/24/24 13:00 12/27/24 12:59 12/25/24 03:15 15 MG Potassium Chloride/Dextrose/ Sod Cl 1,000 ml @ 200 mls/hr Q5H IV 12/24/24 18:15 12/25/24 09:54 200 MLS/HR Insulin Human (Reg)/Sodium Chloride 100 ml @ 0.5 mls/hr Q24H IV 12/24/24 18:15 12/24/24 20:00 0.5 MLS/HR Dextrose 50 ml UD PRN IV 12/24/24 18:15 Diagnostic Test (Pha) 1 strip Q90MIN 12/24/24 19:30 12/25/24 11:19 1 STRIP Laboratory Results Laboratory Tests 12/25/24 06:34 Chemistry Test 12/24/24 13:53 12/25/24 00:25 12/25/24 06:34 Calcium Level 9.3 mg/dL (8.7-10.4) 9.6 mg/dL (8.7-10.4) 9.4 mg/dL (8.7-10.4) Albumin 3.8 g/dL (3.2-4.8) Total Protein 6.2 g/dL (5.7-8.2) LFT Test 12/25/24 06:34 Alanine Aminotransferase (ALT) 13 U/L (7-40) Alkaline Phosphatase 69 U/L (46-116) Aspartate Amino Transferase (AST) 17 U/L (13-40) Total Bilirubin 1.5 mg/dL (0.2-1.0) H Urinalysis Test 12/23/24 04:48 Urine Color Yellow (Yellow) Urine Clarity Clear (Clear) Urine pH 6.5 (5.0-9.0) Urine Specific [place] 1.024 (1.001-1.035) Urine Protein Trace (Negative) H Urine Ketones 4+ (Negative) H Urine Blood Negative /uL (Negative) Urine Nitrite Negative (Negative) Urine Bilirubin Negative (Negative) Urine Urobilinogen 2 mg/dL (Negative) H Urine Leukocyte Esterase Negative /uL (Negative) Urine RBC <1 /hpf (0 - 4) Urine Microscopic WBC 1 /HPF (0-5) Urine Squamous Epithelial Cells Few /hpf (<5) Urine Bacteria None seen /hpf (None Seen) Urine Mucus Few (None Seen) Urine Glucose Trace mg/dL (Normal) Blood Gas Results Test 12/24/24 13:58 Arterial Blood pH 7.558 (7.350-7.450) FiO2 % 21.0 Microbiology Microbiology Date/Time Source Procedure Growth Status 12/23/24 15:37 Blood Blood Culture - Preliminary NO GROWTH AFTER 24 HOURS OF INCUBATION. Resulted Labs and/or images reviewed: Labs reviewed by me, Image(s) reviewed by me Assessment/Plan Assessment/Plan 12/24: GI consult was placed on admit, recommending UDS, Protonix Carafate, Colace MiraLax, elective C scope outpatient. Otherwise continue IV antibiotics, IV fluids, prn antiemetic/analgesia. Patient has a anion gap, acidosis, history of taking Jardiance euglycemic DKA concern as possible we will get ABG, ketosis severe on UA. Lactic acidosis was negative -patient has history of taking Jardiance, significant gap with beta hydroxy butyrate, ABG shows metabolic alkalosis likely from emesis and hyperventilation. We will upgrade to D OU and start DKA protocol for euglycemic DKA., continuous insulin at 3 units per hour (no loading insulin, stop any long-acting insulin), maintain fluids with D5 half NS with 20 KCL at rate 200 cc/hour,. Titrate fluids and insulin per DKA protocol with goal to close gap. At gap closure can transition patient with 12 unit Lantus and to clear liquid diet, NPO otherwise. Can continue prn analgesia, prn antiemetics. BMP b.i.d. to closely monitor potassium and gap. 12/25: The gap closed this morning 211, increase back to 14. Could possibly be starvation ketosis. We will try transition today turning down insulin drip and IV fluids, started Lantus 12 and we will feed and into hours ago start sliding scale as well. Repeat BNP 4:00 p.m.. Start Reglan 10 IV b.i.d. for possible gastroparesis. Start meclizine 25 mg PO prn t.i.d. for dizziness. Patient BNP looks well tolerating p.o. this evening we will deescalate to telemetry. diagnosis: Acute gastroenteritis, infectious etiology likely Diverticulosis, possible early diverticulitis early DKA, early euglycemic DKA possible Respiratory alkalosis, with anion gap metabolic acidosis, with metabolic alkalosis from emesis Ketoacidosis, from DKA and/or starvation Intractable abdominal pain, likely due to above P.o. intolerance likely due to above intractable nausea, likely due to above Constipation possible anxiety DM hx UTIs hyperlipidemia Plan: Continue IV antibiotics Continue clear liquid diet Continue antiemetics Continue prn analgesia, GI following appreciate recommendations Continue Protonix Carafate Continue Colace MiraLax D OU Full code Plan discussed with: Patient My Orders Orders - DOMINIC VALLADARES MD Procedure Category Date Status Time Ketorolac Injection PHA 12/24/24 In Process (Toradol Injection) 13:00 Abg W/ Co-Ox RT 12/24/24 Logged 14:07 Transfer Orders XFER 12/24/24 Transmitted 16:42 Mrsa Screen ARCELIA 12/24/24 In Process 18:15 Insulin Drip Protocol MELLY 12/24/24 In Process D5w/Sod Chl 0.45%/Kcl PHA 12/24/24 In Process 20meq 18:15 Insulin Drip 100 PHA 12/24/24 In Process Unit/100ml (Myxredlin 18:15 Dextrose 50% Syringe PHA 12/24/24 In Process 18:15 Glucose Blood PHA 12/24/24 In Process (Accu-Chek Comfort 19:30 Basic Metabolic Panel LAB 12/25/24 Logged 12:15 Neurological MELLY 12/24/24 In Process Assessment 18:15 Vs/Hemodynamics MELLY 12/24/24 In Process 18:15 Communication Order ORDERS 12/24/24 Transmitted 18:15 Clear Liq Diet DIET 12/25/24 Transmitted Breakfast Date of Service: Dec 25, 2024 Billing Provider: DOMINIC VALLADARES MD Common Visit Codes: [id number] CARE 30-74 MIN DOMINIC VALLADARES MD Dec 25, 2024 12:07
[2024-12-25] MEDS: D5W/SOD CHL 0.45%/KCL 20MEQ 1,000 ML IV SCH (12:51)
[2024-12-25] MEDS: METOCLOPRAMIDE HCL 5MG/ml INJ 2ml VIAL IV ONE (12:51)
[2024-12-25] MEDS: INSULIN LANTUS (GLARGINE) 1 /0.01ml (100units/ml) SC ONE (12:52)
[2024-12-25] MEDS: INSULIN LANTUS (GLARGINE) 1 /0.01ml (100units/ml) SC SCH (12:52)
[2024-12-25] MEDS: METOCLOPRAMIDE HCL 5MG/ml INJ 2ml VIAL ONE (12:52)
--- NOTE | 2024-12-25 13:08 | DVHPN2 ---
Subjective Patient is still complaining of epigastric and right upper quadrant pain. Pain is worse after eating food. Decreased appetite. Patient's symptoms and on and off for the past three months. Patient is still has nausea, and vomiting mostly green bile but on patient noticed red blood. Weight loss of 30 lb in the past three months. Status post EGD Dr. Montelongo 2021 diagnosed with gastritis. [facility] Patient was on Jardiance Reviewed: H&P Changes from previous H/P or p: No Changes General: Per HPI Eyes: No Pain, No Vision change, No Conjunctivae inflammation, No Eyelid inflammation, No Other, No Redness ENT: No Ear pain, No Ear discharge, No Nose pain, No Nose discharge, No Nose congestion, No Mouth pain, No Mouth swelling, No Throat pain, No Throat swelling, No Other Cardiovascular: No Chest Pain, No Palpitations, No Orthopnea, No Paroxysmal Noc. Dyspnea, No Edema, No Lt Headedness, No Other Respiratory: No Cough, No Dry, No Shortness of breath, No SOB with excertion, No Wheezing, No Hemoptysis, No Pleuritic Pain, No Sputum, No Other Gastrointestinal: Nausea, Vomiting, Abdominal Pain; No Diarrhea; Constipation; No Melena, No Hematochezia, No Other Genitourinary: No Dysuria, No Frequency, No Incontinence, No Hematuria, No Retention, No Other Musculoskeletal: No other, No neck pain, No shoulder pain, No arm pain, No back pain, No hand pain, No leg pain, No foot pain Skin: No Rash, No Lesions, No Jaundice, No Bruising, No Other Objective Vitals Vital Signs Date Time Temp Pulse Resp B/P (MAP) Pulse Ox O2 Delivery O2 Flow Rate FiO2 12/25/24 12:00 97.8 57 15 125/63 (83) 99 97.8 12/25/24 08:00 Room Air* 0 21 Intake/Output Intake and Output 12/25/24 07:00 Intake Total 2433.5 ml Output Total 3 ml Balance 2430.5 ml Intake Oral 288 ml IV Total 2145.5 ml Output Urine Total 3 ml # Voids 4 General Appearance: Alert, Oriented X3, Cooperative, No acute distress, mild distress, moderate distress, severe distress, Other Lungs: Clear to auscultation, Normal air movement, Other Cardiovascular: Regular rate, Normal S1, Normal S2, No murmurs, Gallops, Rubs, Other Abdomen: Normal bowel sounds, Soft, No tenderness (Patient positive for epigastric and right upper quadrant tenderness), No hepatospenomegaly, No masses , Other Medications Current Medications Medications Dose Ordered Sig/Malina Route Start Time Stop Time Status Last Admin Dose Admin Metronidazole 100 ml @ 100 mls/hr Q8H IV 12/23/24 02:30 12/25/24 10:15 100 MLS/HR Pantoprazole Sodium 40 mg DAILY IV 12/24/24 10:00 12/25/24 09:33 40 MG Ceftriaxone Sodium 50 ml @ 100 mls/hr DAILY@09 IV 12/24/24 09:00 12/25/24 08:35 100 MLS/HR Acetaminophen/ Hydrocodone Bitart 1 tab Q4HP PRN PO 12/23/24 21:30 Ondansetron HCl 4 mg Q4HP PRN IV 12/23/24 21:30 12/25/24 09:15 4 MG Docusate Sodium 100 mg BIDPRN PRN PO 12/23/24 21:30 Acetaminophen 650 mg Q6HP PRN PO 12/23/24 21:30 Nitroglycerin 0.4 mg Q5MINP PRN SL 12/23/24 21:30 Morphine Sulfate 2 mg Q30M PRN IV 12/23/24 21:30 Ketorolac Tromethamine 15 mg Q6HPRN PRN IV 12/24/24 13:00 12/27/24 12:59 12/25/24 03:15 15 MG Insulin Human (Reg)/Sodium Chloride 100 ml @ 0.5 mls/hr Q24H IV 12/24/24 18:15 12/24/24 20:00 0.5 MLS/HR Dextrose 50 ml UD PRN IV 12/24/24 18:15 Diagnostic Test (Pha) 1 strip Q90MIN 12/24/24 19:30 12/25/24 12:15 1 STRIP Potassium Chloride/Dextrose/ Sod Cl 1,000 ml @ 125 mls/hr Q8H IV 12/25/24 12:15 12/25/24 14:30 12/25/24 12:51 125 MLS/HR Insulin Glargine 12 units DAILY@1000 SC 12/25/24 12:15 12/25/24 12:52 12 UNITS Metoclopramide HCl 10 mg BID IV 12/25/24 22:00 Meclizine HCl 25 mg Q8HPRN PRN PO 12/25/24 12:15 Laboratory Results Laboratory Tests 12/25/24 06:34 Chemistry Test 12/24/24 13:53 12/25/24 00:25 12/25/24 06:34 Calcium Level 9.3 mg/dL (8.7-10.4) 9.6 mg/dL (8.7-10.4) 9.4 mg/dL (8.7-10.4) Albumin 3.8 g/dL (3.2-4.8) Total Protein 6.2 g/dL (5.7-8.2) LFT Test 12/25/24 06:34 Alanine Aminotransferase (ALT) 13 U/L (7-40) Alkaline Phosphatase 69 U/L (46-116) Aspartate Amino Transferase (AST) 17 U/L (13-40) Total Bilirubin 1.5 mg/dL (0.2-1.0) H Urinalysis Test 12/23/24 04:48 Urine Color Yellow (Yellow) Urine Clarity Clear (Clear) Urine pH 6.5 (5.0-9.0) Urine Specific [place] 1.024 (1.001-1.035) Urine Protein Trace (Negative) H Urine Ketones 4+ (Negative) H Urine Blood Negative /uL (Negative) Urine Nitrite Negative (Negative) Urine Bilirubin Negative (Negative) Urine Urobilinogen 2 mg/dL (Negative) H Urine Leukocyte Esterase Negative /uL (Negative) Urine RBC <1 /hpf (0 - 4) Urine Microscopic WBC 1 /HPF (0-5) Urine Squamous Epithelial Cells Few /hpf (<5) Urine Bacteria None seen /hpf (None Seen) Urine Mucus Few (None Seen) Urine Glucose Trace mg/dL (Normal) Blood Gas Results Test 12/24/24 13:58 Arterial Blood pH 7.558 (7.350-7.450) FiO2 % 21.0 Microbiology Microbiology Date/Time Source Procedure Growth Status 12/23/24 15:37 Blood Blood Culture - Preliminary NO GROWTH AFTER 24 HOURS OF INCUBATION. Resulted Labs and/or images reviewed: Labs reviewed by me, Image(s) reviewed by me Assessment/Plan Assessment/Plan Abdominal pain Nausea and vomiting Possible gastroenteritis Diverticulosis Possible DKA Plan Discussed with Dr. Hartman Patient will be scheduled for EGD tomorrow 12/26/2024. 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
[2024-12-25] MEDS: ACCU-CHEK COMFORT CURVE STRIP VI SCH (17:01)
[2024-12-25] MEDS: InsuLIN REG 1unit/0.01ml Soln (100units/ml) SC SCH (17:06)
[2024-12-25 17:09] LABS: Chloride 99 mmol/L (98-107)
[2024-12-25 17:10] LABS: Anion Gap 12 (5-15); Carbon Dioxide 23 mmol/L (20-31)
[2024-12-25 17:11] LABS: Calcium 9.3 mg/dL (8.7-10.4)
[2024-12-25 17:13] LABS: Potassium 2.7 mmol/L (3.5-5.1); Sodium 134 mmol/L (136-145)
[2024-12-25 17:16] LABS: BUN/Creatinine Ratio 12.2 (10.0-20.0); Blood Urea Nitrogen < 5 mg/dL (9-23); Glucose 127 mg/dL (74-106)
[2024-12-25] MEDS: METOCLOPRAMIDE HCL 5MG/ml INJ 2ml VIAL IV SCH (21:32)
[2024-12-25] MEDS: POTASSIUM CHL 20MEQ/100ML 100 ML IV ONE (21:51)
[2024-12-25 22:43] LABS: Anion Gap 13 (5-15); Calcium 9.3 mg/dL (8.7-10.4); Carbon Dioxide 22 mmol/L (20-31)
[2024-12-25 22:48] LABS: BUN/Creatinine Ratio 11.9 (10.0-20.0); Blood Urea Nitrogen < 5 mg/dL (9-23); Chloride 98 mmol/L (98-107); Glucose 114 mg/dL (74-106); Potassium 2.6 mmol/L (3.5-5.1); Sodium 133 mmol/L (136-145)
[2024-12-26] VITALS (22 sets, daily range): BP systolic 99–143; BP diastolic 57–93; PULSE 62–82; RESP 11–20; TEMP 97.8–98.4; O2SAT 97–100
[2024-12-26] MEDS: POTASSIUM CHL 20MEQ/100ML 100 ML IV SCH (00:26)
--- NOTE | 2024-12-26 06:25 | DVH ---
CHEST RADIOGRAPH Indication: for surgery Technique: Single frontal view of the chest was obtained Comparison: CHEST PORTABLE on DOS: 10/11/21 FINDINGS: Lines and Tubes: None Lungs: No focal consolidation. Pleura: No effusion. No pneumothorax. Cardiomediastinal contours: Unremarkable Bones: No acute osseous abnormality. Bilateral AC joint arthrosis. IMPRESSION: 1. No acute cardiopulmonary disease.
[2024-12-26 07:42] LABS: Alanine Aminotransferase 10 U/L (7-40); Albumin 3.6 g/dL (3.2-4.8); Alkaline Phosphatase 69 U/L (46-116); Anion Gap 13 (5-15); Calcium 9.3 mg/dL (8.7-10.4); Carbon Dioxide 21 mmol/L (20-31); Chloride 99 mmol/L (98-107); Glucose 101 mg/dL (74-106); Potassium 3.7 mmol/L (3.5-5.1); Total Protein 6.0 g/dL (5.7-8.2)
[2024-12-26 07:44] LABS: BUN/Creatinine Ratio 14.3 (10.0-20.0); Bilirubin, Total 1.4 mg/dL (0.2-1.0); Blood Urea Nitrogen < 5 mg/dL (9-23); Sodium 133 mmol/L (136-145)
[2024-12-26 07:59] LABS: Hematocrit 41.6 % (36.0-46.0); Hemoglobin 14.8 g/dL (12.2-16.2); Mean Corpuscular Hemoglobin 32.3 pg (28.0-32.0); Mean Corpuscular Volume 90.4 fL (80.0-100.0); Nucleated Red Blood Cells % 0.1 %
[2024-12-26 08:43] LABS: INR 1.03 (0.9-1.15); Partial Thromboplastin Time 25.9 SEC (24.5-34.5); Prothrombin Time 10.9 sec (9.3-11.8)
[2024-12-26] MEDS ORDERED: SODIUM CHLORIDE LOCK 10 ML ONE (08:58)
--- NOTE | 2024-12-26 11:47 | DVHPN2 ---
Subjective Patient is still nauseous with abdominal pain Reviewed: H&P Changes from previous H/P or p: No Changes General: Per HPI Eyes: No Pain, No Vision change, No Conjunctivae inflammation, No Eyelid inflammation, No Other, No Redness ENT: No Ear pain, No Ear discharge, No Nose pain, No Nose discharge, No Nose congestion, No Mouth pain, No Mouth swelling, No Throat pain, No Throat swelling, No Other Cardiovascular: No Chest Pain, No Palpitations, No Orthopnea, No Paroxysmal Noc. Dyspnea, No Edema, No Lt Headedness, No Other Respiratory: No Cough, No Dry, No Shortness of breath, No SOB with excertion, No Wheezing, No Hemoptysis, No Pleuritic Pain, No Sputum, No Other Gastrointestinal: Nausea, Vomiting, Abdominal Pain; No Diarrhea; Constipation; No Melena, No Hematochezia, No Other Genitourinary: No Dysuria, No Frequency, No Incontinence, No Hematuria, No Retention, No Other Musculoskeletal: No other, No neck pain, No shoulder pain, No arm pain, No back pain, No hand pain, No leg pain, No foot pain Skin: No Rash, No Lesions, No Jaundice, No Bruising, No Other Objective Vitals Vital Signs Date Time Temp Pulse Resp B/P (MAP) Pulse Ox O2 Delivery O2 Flow Rate FiO2 12/26/24 10:00 72 14 121/71 (88) 98 12/26/24 08:00 98.2 98.2 12/26/24 08:00 Room Air* 0 21 Intake/Output Intake and Output 12/26/24 07:00 Intake Total 1864.0 ml Output Total 270 ml Balance 1594.0 ml Intake Oral 250 ml IV Total 1614.0 ml Emesis 270 ml # Voids 12 Exam GEN: Healthy appearing, well-developed, NAD. HEENT: NC/AT; MMM. CV: RRR, no m/r/g. LUNGS: CTAB, no w/r/c. ABD: Hypoactive bowel sounds, tender to palpation epigastrium EXT: skin Warm, well perfused. no rashes. No clubbing, cyanosis, or edema. NEURO: Ambulating with no limitations. No focal deficits. General Appearance: Alert, Oriented X3, Cooperative, No acute distress, mild distress, moderate distress, severe distress, Other Lungs: Clear to auscultation, Normal air movement, Other Cardiovascular: Regular rate, Normal S1, Normal S2, No murmurs, Gallops, Rubs, Other Abdomen: Normal bowel sounds, Soft, No tenderness (Patient positive for epigastric and right upper quadrant tenderness), No hepatospenomegaly, No masses , Other Medications Current Medications Medications Dose Ordered Sig/Malina Route Start Time Stop Time Status Last Admin Dose Admin Metronidazole 100 ml @ 100 mls/hr Q8H IV 12/23/24 02:30 12/26/24 10:27 100 MLS/HR Pantoprazole Sodium 40 mg DAILY IV 12/24/24 10:00 12/26/24 10:01 40 MG Ceftriaxone Sodium 50 ml @ 100 mls/hr DAILY@09 IV 12/24/24 09:00 12/26/24 09:07 100 MLS/HR Acetaminophen/ Hydrocodone Bitart 1 tab Q4HP PRN PO 12/23/24 21:30 Ondansetron HCl 4 mg Q4HP PRN IV 12/23/24 21:30 12/25/24 09:15 4 MG Docusate Sodium 100 mg BIDPRN PRN PO 12/23/24 21:30 Acetaminophen 650 mg Q6HP PRN PO 12/23/24 21:30 Nitroglycerin 0.4 mg Q5MINP PRN SL 12/23/24 21:30 Morphine Sulfate 2 mg Q30M PRN IV 12/23/24 21:30 Ketorolac Tromethamine 15 mg Q6HPRN PRN IV 12/24/24 13:00 12/27/24 12:59 12/25/24 03:15 15 MG Dextrose 50 ml UD PRN IV 12/24/24 18:15 Insulin Glargine 12 units DAILY@1000 SC 12/25/24 12:15 12/26/24 09:43 12 UNITS Metoclopramide HCl 10 mg BID IV 12/25/24 22:00 12/26/24 09:41 10 MG Meclizine HCl 25 mg Q8HPRN PRN PO 12/25/24 12:15 Diagnostic Test (Pha) 1 strip IQ4HR 12/25/24 16:00 12/26/24 07:58 1 STRIP Insulin Human Regular IQ4HR SC 12/25/24 16:00 12/25/24 17:06 2 UNITS Laboratory Results Laboratory Tests 12/26/24 06:14 Chemistry Test 12/25/24 16:45 12/25/24 22:15 12/26/24 06:14 Calcium Level 9.3 mg/dL (8.7-10.4) 9.3 mg/dL (8.7-10.4) 9.3 mg/dL (8.7-10.4) Albumin 3.6 g/dL (3.2-4.8) Total Protein 6.0 g/dL (5.7-8.2) Coagulation Test 12/26/24 06:14 Prothrombin Time 10.9 sec (9.3-11.8) Prothrombin Time INR 1.03 (0.9-1.15) Activated Partial Thromboplast Time 25.9 SEC (24.5-34.5) LFT Test 12/26/24 06:14 Alanine Aminotransferase (ALT) 10 U/L (7-40) Alkaline Phosphatase 69 U/L (46-116) Aspartate Amino Transferase (AST) 14 U/L (13-40) Total Bilirubin 1.4 mg/dL (0.2-1.0) H Urinalysis Test 12/23/24 04:48 Urine Color Yellow (Yellow) Urine Clarity Clear (Clear) Urine pH 6.5 (5.0-9.0) Urine Specific [place] 1.024 (1.001-1.035) Urine Protein Trace (Negative) H Urine Ketones 4+ (Negative) H Urine Blood Negative /uL (Negative) Urine Nitrite Negative (Negative) Urine Bilirubin Negative (Negative) Urine Urobilinogen 2 mg/dL (Negative) H Urine Leukocyte Esterase Negative /uL (Negative) Urine RBC <1 /hpf (0 - 4) Urine Microscopic WBC 1 /HPF (0-5) Urine Squamous Epithelial Cells Few /hpf (<5) Urine Bacteria None seen /hpf (None Seen) Urine Mucus Few (None Seen) Urine Glucose Trace mg/dL (Normal) Microbiology Microbiology Date/Time Source Procedure Growth Status 12/24/24 18:15 Nose MRSA Screen - Final Complete 12/23/24 15:37 Blood Blood Culture - Preliminary NO GROWTH AFTER 48 HOURS OF INCUBATION. Resulted Labs and/or images reviewed: Labs reviewed by me, Image(s) reviewed by me Assessment/Plan Assessment/Plan 59-year-old female with multiple past medical history including anxiety, DM, UTIs, and hyperlipidemia who presented to [facility] ED with complaint of abdominal pain for the past 3 weeks. Patient reports she has been having acute abdominal pain, associated with nausea, hematemesis, constipation, getting worse that prompted this visit. Patient has been seem multiple times at this ED including [place] where her PCP referred her to [facility]. Patient has gotten multiple CT scans down at each facility which resulted non acute and was referred to see a GI. Patient has an appointment with GI on 01/17/25, but states pain is severe, sharp and rating 10/10 numeric rating scale. 12/24: GI consult was placed on admit, recommending UDS, Protonix Carafate, Colace MiraLax, elective C scope outpatient. Otherwise continue IV antibiotics, IV fluids, prn antiemetic/analgesia. Patient has a anion gap, acidosis, history of taking Jardiance euglycemic DKA concern as possible we will get ABG, ketosis severe on UA. Lactic acidosis was negative -patient has history of taking Jardiance, significant gap with beta hydroxy butyrate, ABG shows metabolic alkalosis likely from emesis and hyperventilation. We will upgrade to D OU and start DKA protocol for euglycemic DKA., continuous insulin at 3 units per hour (no loading insulin, stop any long-acting insulin), maintain fluids with D5 half NS with 20 KCL at rate 200 cc/hour,. Titrate fluids and insulin per DKA protocol with goal to close gap. At gap closure can transition patient with 12 unit Lantus and to clear liquid diet, NPO otherwise. Can continue prn analgesia, prn antiemetics. BMP b.i.d. to closely monitor potassium and gap. 12/25: The gap closed this morning 211, increase back to 14. Could possibly be starvation ketosis. We will try transition today turning down insulin drip and IV fluids, started Lantus 12 and we will feed and into hours ago start sliding scale as well. Repeat BNP 4:00 p.m.. Start Reglan 10 IV b.i.d. for possible gastroparesis. Start meclizine 25 mg PO prn t.i.d. for dizziness. Patient BNP looks well tolerating p.o. this evening we will deescalate to telemetry. 12/26: Patient has plan for EGD today she is NPO. Gap remains closed. Reglan IV b.i.d. was started yesterday patient is feeling better dry heaving as resolved. She still has some nausea. Headache dizziness is also resolving likely with Reglan. After EGD patient can deescalate to telemetry. Patient is complaining of a ball suprapubic, she has and fixed mass right suprapubic region no erythema. We will get CT abdomen pelvis with IV contrast to assess this mass. diagnosis: Acute gastroenteritis, infectious etiology likely Diverticulosis, possible early diverticulitis early DKA, early euglycemic DKA possible Respiratory alkalosis, with anion gap metabolic acidosis, with metabolic alkalosis from emesis Ketoacidosis, from DKA and/or starvation Intractable abdominal pain, likely due to above P.o. intolerance likely due to above intractable nausea, likely due to above Constipation possible anxiety DM hx UTIs hyperlipidemia Plan: Continue IV antibiotics Continue clear liquid diet Continue antiemetics Continue prn analgesia, GI following appreciate recommendations Continue Protonix Carafate Continue Colace MiraLax D OU Full code Plan discussed with: Patient My Orders Orders - DOMINIC VALLADARES MD Procedure Category Date Status Time Insulin Lantus PHA 12/25/24 In Process (Glargine) (Lantus) 12:15 Metoclopramide PHA 12/25/24 In Process Injection (Reglan 22:00 Meclizine Tablet PHA 12/25/24 In Process (Antivert Tablet) 12:15 Glucose Blood PHA 12/25/24 In Process (Accu-Chek Comfort 16:00 Insulin R (Human) PHA 12/25/24 In Process (Insulin R) 16:00 Date of Service: Dec 26, 2024 Billing Provider: DOMINIC VALLADARES MD Common Visit Codes: [id number] INP/OBS CARE(HIGH) DOMINIC VALLADARES MD Dec 26, 2024 11:47
[2024-12-26] MEDS: diphenhdrAMINE HCL 50 MG/1 ML VL ONE (16:02)
[2024-12-26] MEDS: fentaNYL CITRATE 100 MCG/2 ML VL ONE (16:02)
[2024-12-26] MEDS: MIDAZOLAM HCL 5 MG/ML-1ML VIAL ONE (16:02)
[2024-12-26] MEDS: LIDOCAINE VISCOUS 2% 15ML UD ONE (16:02)
--- NOTE | 2024-12-26 16:14 | DVHOP2 ---
Operative Report DATE OF OPERATION: 12/26/24 PROCEDURE: Upper Endoscopy with biopsy. PREOPERATIVE INDICATION: The patient is a 59 -year-old female undergoing endoscopy for epigastric pain POSTOPERATIVE DIAGNOSES: 1. Moderate gastroduodenitis with hyperemia erythema pylorospasm and some superficial flecks of old blood in the antrum PROCEDURE PERFORMED BY: Karthik Hartman GI NURSE: Naima SCOPE: Olympus videoendoscope. ASA CLASS: 3. PREOPERATIVE MEDICATIONS: Versed 2 mg, Fentanyl 50 mcg, Benadryl 25 mg I administered moderate sedation throughout this _8_ minutes procedure. An independent trained observer pushed medications at my direction, and monitored the patient's level of consciousness and physiological status throughout. PROCEDURE IN DETAIL: After obtaining an informed consent, the patient was placed on left lateral decubitus position. The patient was then sedated with the above medications. A bite block was placed between her teeth. The endoscope was then passed through the oropharynx, into the esophagus, and through the stomach and pylorus up to the second and third part of the duodenum. The endoscope was then withdrawn. The 2nd and 3rd part of the duodenum were normal. Duodenal bulb showed duodenitis with erosions The pre-pyloric area antrum and body showed mild gastritis with some flecks of old blood and superficial erosions On retroflexion the fundus cardia and angularis were normal. Duodenal and gastric biopsies were obtained. The endoscope was then withdrawn into the distal esophagus. There was no significant hiatal hernia or esophagitis Remaining distal and proximal esophagus and oropharynx were unremarkable. The patient tolerated the procedure well without difficulty. COMPLICATIONS : None SPECIMENS: Duodenal biopsies Gastric biopsies DISPOSITION: Transfer back to the floor Stable PLAN: 1. Await for biopsy result 2. Will place pt on Protonix 40 mg bid 3. Carafate 1 g p.o. 4 times a day 4. Resume GI soft diet advance as tolerated 5. Avoid aspirin NSAIDs smoking and alcohol 6. Outpatient follow up with GI Services in 4-6 weeks to review results and discuss further management KARTHIK HARTMAN MD Dec 26, 2024 16:14
[2024-12-26] MEDS: PANTOPRAZOLE 40 MG TAB PO SCH (17:31)
[2024-12-26] MEDS: IOHEXOL 300 MG/ML 100ML BOTTLE IJ ONE (18:44)
--- NOTE | 2024-12-26 21:03 | DVH ---
Exam: CT CT AB PEL WITH IV CON ONLY History: Supra pelvic mass Comparison Study: CT CT AB PEL WITH IV CON ONLY on DOS: 05/01/24 TECHNIQUE: Multidetector CT of the abdomen and pelvis with IV contrast. Axial, coronal and sagittal m ultiplanar reformats were obtained from the axial data set by the technologist. Radiation Dose Information: CT Dose: CTDI volume is 5.07 mGy. Dose-length product is 3.92 mGy*cm FINDINGS: The lung bases are clear. Partially visualized heart is unremarkable. Status post cholecystectomy. Liver, spleen, pancreas and adrenal glands unremarkable Kidneys, ureters and urinary bladder are unremarkable. Mild wall thickening of the distal esophagus. Mild gastric wall thickening. Mild wall Thickening of p roximal Small bowel loops. The remainder of the small bowel loops unremarkable. Appendix is unremarka ble. Small amount of fecal material within the colon. Large amount of gas within the rectum. Sigmoid diverticulosis without diverticulitis. No evidence of intraperitoneal free air or free fluid. Mild atherosclerotic calcification of the aorta and bilateral iliacs. No significant lymphadenopathy. Minimal body wall edema. No evidence of acute abdominopelvic abnormalities. Sclerotic focus of the bi lateral proximal femur and left acetabulum represent bone islands. IMPRESSION: Mild wall thickening of the distal esophagus, stomach and proximal small bowel. Correlate for mild e sophagitis and gastroenteritis respectively. Sigmoid diverticulosis without diverticulitis. No masses are visualized.
[2024-12-26] MEDS: SUCRALFATE 1 GM/10 ML ORAL SUSP PO SCH (21:54)
[2024-12-27] VITALS (21 sets, daily range): BP systolic 118–151; BP diastolic 73–94; PULSE 65–85; RESP 10–23; TEMP 97.7–98.4; O2SAT 97–100
[2024-12-27 07:34] LABS: Alanine Aminotransferase 10 U/L (7-40); Albumin 3.9 g/dL (3.2-4.8); Alkaline Phosphatase 76 U/L (46-116); Anion Gap 14 (5-15); Calcium 9.8 mg/dL (8.7-10.4); Carbon Dioxide 23 mmol/L (20-31); Glucose 96 mg/dL (74-106); Total Protein 6.4 g/dL (5.7-8.2)
[2024-12-27 07:35] LABS: BUN/Creatinine Ratio 13.5 (10.0-20.0); Bilirubin, Total 1.5 mg/dL (0.2-1.0); Blood Urea Nitrogen < 5 mg/dL (9-23); Chloride 95 mmol/L (98-107); Potassium 3.0 mmol/L (3.5-5.1); Sodium 132 mmol/L (136-145)
[2024-12-27 08:31] LABS: Hematocrit 43.4 % (36.0-46.0); Hemoglobin 15.6 g/dL (12.2-16.2); Mean Corpuscular Hemoglobin 32.7 pg (28.0-32.0); Mean Corpuscular Volume 90.9 fL (80.0-100.0); Nucleated Red Blood Cells % 0.2 %
[2024-12-27] MEDS: PANTOPRAZOLE 40 MG/10 ML VIAL INJ IV SCH (09:44)
[2024-12-27] MEDS: MORPHINE SULFATE INJ 2 MG/ml SYRG IV ONE (09:45)
[2024-12-27] MEDS ORDERED: MORPHINE SULFATE INJ 2 MG/ml SYRG IV PRN (10:00)
--- NOTE | 2024-12-27 10:07 | DVHPN2 ---
Subjective Patient is still nauseous with abdominal pain Reviewed: H&P Changes from previous H/P or p: No Changes General: Per HPI Eyes: No Pain, No Vision change, No Conjunctivae inflammation, No Eyelid inflammation, No Other, No Redness ENT: No Ear pain, No Ear discharge, No Nose pain, No Nose discharge, No Nose congestion, No Mouth pain, No Mouth swelling, No Throat pain, No Throat swelling, No Other Cardiovascular: No Chest Pain, No Palpitations, No Orthopnea, No Paroxysmal Noc. Dyspnea, No Edema, No Lt Headedness, No Other Respiratory: No Cough, No Dry, No Shortness of breath, No SOB with excertion, No Wheezing, No Hemoptysis, No Pleuritic Pain, No Sputum, No Other Gastrointestinal: Nausea, Vomiting, Abdominal Pain; No Diarrhea; Constipation; No Melena, No Hematochezia, No Other Genitourinary: No Dysuria, No Frequency, No Incontinence, No Hematuria, No Retention, No Other Musculoskeletal: No other, No neck pain, No shoulder pain, No arm pain, No back pain, No hand pain, No leg pain, No foot pain Skin: No Rash, No Lesions, No Jaundice, No Bruising, No Other Objective Vitals Vital Signs Date Time Temp Pulse Resp B/P (MAP) Pulse Ox O2 Delivery O2 Flow Rate FiO2 12/27/24 10:00 65 12 137/76 (96) 98 12/27/24 08:00 Room Air* 0 21 12/27/24 08:00 98.3 98.3 Intake/Output Intake and Output 12/27/24 07:00 Intake Total 775 ml Output Total 50 ml Balance 725 ml Intake Oral 425 ml IV Total 350 ml Emesis 50 ml # Voids 8 Exam GEN: Healthy appearing, well-developed, NAD. HEENT: NC/AT; MMM. CV: RRR, no m/r/g. LUNGS: CTAB, no w/r/c. ABD: Hypoactive bowel sounds, tender to palpation epigastrium EXT: skin Warm, well perfused. no rashes. No clubbing, cyanosis, or edema. NEURO: Ambulating with no limitations. No focal deficits. General Appearance: Alert, Oriented X3, Cooperative, No acute distress, mild distress, moderate distress, severe distress, Other Lungs: Clear to auscultation, Normal air movement, Other Cardiovascular: Regular rate, Normal S1, Normal S2, No murmurs, Gallops, Rubs, Other Abdomen: Normal bowel sounds, Soft, No tenderness (Patient positive for epigastric and right upper quadrant tenderness), No hepatospenomegaly, No masses , Other Medications Current Medications Medications Dose Ordered Sig/Malina Route Start Time Stop Time Status Last Admin Dose Admin Metronidazole 100 ml @ 100 mls/hr Q8H IV 12/23/24 02:30 12/27/24 08:48 100 MLS/HR Ceftriaxone Sodium 50 ml @ 100 mls/hr DAILY@09 IV 12/24/24 09:00 12/27/24 07:50 100 MLS/HR Acetaminophen/ Hydrocodone Bitart 1 tab Q4HP PRN PO 12/23/24 21:30 Docusate Sodium 100 mg BIDPRN PRN PO 12/23/24 21:30 Acetaminophen 650 mg Q6HP PRN PO 12/23/24 21:30 Nitroglycerin 0.4 mg Q5MINP PRN SL 12/23/24 21:30 Morphine Sulfate 2 mg Q30M PRN IV 12/23/24 21:30 Ketorolac Tromethamine 15 mg Q6HPRN PRN IV 12/24/24 13:00 12/27/24 12:59 12/27/24 07:42 15 MG Dextrose 50 ml UD PRN IV 12/24/24 18:15 Insulin Glargine 12 units DAILY@1000 SC 12/25/24 12:15 12/26/24 09:43 12 UNITS Metoclopramide HCl 10 mg BID IV 12/25/24 22:00 12/27/24 07:42 10 MG Meclizine HCl 25 mg Q8HPRN PRN PO 12/25/24 12:15 Diagnostic Test (Pha) 1 strip IQ4HR 12/25/24 16:00 12/27/24 09:45 1 STRIP Insulin Human Regular IQ4HR SC 12/25/24 16:00 12/26/24 20:07 3 UNITS Sucralfate 1 gm BID@0600,2200 PO 12/26/24 22:00 12/26/24 21:54 1 GM Pantoprazole Sodium 40 mg BID IV 12/27/24 10:00 12/27/24 09:44 40 MG Morphine Sulfate 1 mg Q6HP PRN IV 12/27/24 10:00 UNV Erythromycin 250 mg Q8HR PO 12/27/24 10:00 UNV Prochlorperazine Edisylate 10 mg Q6HPRN PRN IV 12/27/24 10:00 UNV Laboratory Results Laboratory Tests 12/27/24 06:26 Chemistry Test 12/27/24 06:26 Albumin 3.9 g/dL (3.2-4.8) Calcium Level 9.8 mg/dL (8.7-10.4) Magnesium Level 1.7 mg/dL (1.6-2.6) Total Protein 6.4 g/dL (5.7-8.2) LFT Test 12/27/24 06:26 Alanine Aminotransferase (ALT) 10 U/L (7-40) Alkaline Phosphatase 76 U/L (46-116) Aspartate Amino Transferase (AST) 12 U/L (13-40) L Total Bilirubin 1.5 mg/dL (0.2-1.0) H Urinalysis Test 12/23/24 04:48 Urine Color Yellow (Yellow) Urine Clarity Clear (Clear) Urine pH 6.5 (5.0-9.0) Urine Specific [place] 1.024 (1.001-1.035) Urine Protein Trace (Negative) H Urine Ketones 4+ (Negative) H Urine Blood Negative /uL (Negative) Urine Nitrite Negative (Negative) Urine Bilirubin Negative (Negative) Urine Urobilinogen 2 mg/dL (Negative) H Urine Leukocyte Esterase Negative /uL (Negative) Urine RBC <1 /hpf (0 - 4) Urine Microscopic WBC 1 /HPF (0-5) Urine Squamous Epithelial Cells Few /hpf (<5) Urine Bacteria None seen /hpf (None Seen) Urine Mucus Few (None Seen) Urine Glucose Trace mg/dL (Normal) Microbiology Microbiology Date/Time Source Procedure Growth Status 12/24/24 18:15 Nose MRSA Screen - Final Complete 12/23/24 15:37 Blood Blood Culture - Preliminary NO GROWTH AFTER 72 HOURS OF INCUBATION. Resulted Labs and/or images reviewed: Labs reviewed by me, Image(s) reviewed by me Assessment/Plan Assessment/Plan 59-year-old female with multiple past medical history including anxiety, DM, UTIs, and hyperlipidemia who presented to [facility] ED with complaint of abdominal pain for the past 3 weeks. Patient reports she has been having acute abdominal pain, associated with nausea, hematemesis, constipation, getting worse that prompted this visit. Patient has been seem multiple times at this ED including [place] where her PCP referred her to [facility]. Patient has gotten multiple CT scans down at each facility which resulted non acute and was referred to see a GI. Patient has an appointment with GI on 01/17/25, but states pain is severe, sharp and rating 10/10 numeric rating scale. 12/24: GI consult was placed on admit, recommending UDS, Protonix Carafate, Colace MiraLax, elective C scope outpatient. Otherwise continue IV antibiotics, IV fluids, prn antiemetic/analgesia. Patient has a anion gap, acidosis, history of taking Jardiance euglycemic DKA concern as possible we will get ABG, ketosis severe on UA. Lactic acidosis was negative -patient has history of taking Jardiance, significant gap with beta hydroxy butyrate, ABG shows metabolic alkalosis likely from emesis and hyperventilation. We will upgrade to D OU and start DKA protocol for euglycemic DKA., continuous insulin at 3 units per hour (no loading insulin, stop any long-acting insulin), maintain fluids with D5 half NS with 20 KCL at rate 200 cc/hour,. Titrate fluids and insulin per DKA protocol with goal to close gap. At gap closure can transition patient with 12 unit Lantus and to clear liquid diet, NPO otherwise. Can continue prn analgesia, prn antiemetics. BMP b.i.d. to closely monitor potassium and gap. 12/25: The gap closed this morning 211, increase back to 14. Could possibly be starvation ketosis. We will try transition today turning down insulin drip and IV fluids, started Lantus 12 and we will feed and into hours ago start sliding scale as well. Repeat BNP 4:00 p.m.. Start Reglan 10 IV b.i.d. for possible gastroparesis. Start meclizine 25 mg PO prn t.i.d. for dizziness. Patient BNP looks well tolerating p.o. this evening we will deescalate to telemetry. 12/26: Patient has plan for EGD today she is NPO. Gap remains closed. Reglan IV b.i.d. was started yesterday patient is feeling better dry heaving as resolved. She still has some nausea. Headache dizziness is also resolving likely with Reglan. After EGD patient can deescalate to telemetry. Patient is complaining of a ball suprapubic, she has and fixed mass right suprapubic region no erythema. We will get CT abdomen pelvis with IV contrast to assess this mass. 12/27: Patient continues to have nausea cramps. Continues to have dizziness. Getting CT head, upright KUB, continuing Reglan 10 mg IV b.i.d., Zofran is not effective. QTC is 430, we will convert Zofran to Compazine. Compazine 10 q.6h PRN for nausea. GI to eval. Patient asking if she is colonoscopy. Starting erythromycin 250 mg q.8h as the 2nd prokinetic. diagnosis: Acute gastroenteritis, infectious etiology likely Diverticulosis, possible early diverticulitis early DKA, early euglycemic DKA possible Respiratory alkalosis, with anion gap metabolic acidosis, with metabolic alkalosis from emesis Ketoacidosis, from DKA and/or starvation Intractable abdominal pain, likely due to above P.o. intolerance likely due to above intractable nausea, likely due to above Constipation possible anxiety DM hx UTIs hyperlipidemia Plan: Continue IV antibiotics Continue clear liquid diet Continue antiemetics Continue prn analgesia, GI following appreciate recommendations Continue Protonix Carafate Continue Colace MiraLax D OU Full code Plan discussed with: Patient My Orders Orders - DOMINIC VALLADARES MD Procedure Category Date Status Time Ct Ab Pel With Iv Con CT 12/26/24 Resulted Only 16:41 Transfer Orders XFER 12/26/24 Transmitted 17:22 Kub Abdomen Single XY 12/27/24 Taken View 08:[address] 12/27/24 Taken 08:37 Pantoprazole PHA 12/27/24 In Process (Protonix) 10:00 Electrocardigram EKG 12/27/24 Logged 08:41 Potassium Chloride PHA 12/27/24 In Process (Potassium Chloride). 09:00 Morphine Sulfate PHA 12/27/24 Logged Injection 10:00 Magnesium Sulfate PHA 12/27/24 Logged 1gm/100ml 10:00 Erythromycin Tablet PHA 12/27/24 Logged 10:00 Prochlorperazine Inj PHA 12/27/24 Logged (Compazine Inj) 10:00 Date of Service: Dec 27, 2024 Billing Provider: DOMINIC VALLADARES MD Common Visit Codes: [id number] INP/OBS CARE(HIGH) DOMINIC VALLADARES MD Dec 27, 2024 10:07
[2024-12-27] MEDS: MAGNESIUM SULFATE 1GM/100ML 100 ML IV ONE (10:22)
--- NOTE | 2024-12-27 10:32 | DVH ---
Date: 12/27/2024 08:56 AM Examination: XY KUB ABDOMEN SINGLE VIEW History: abd pain. constipation Comparison: CT CT AB PEL WITH IV CON ONLY on DOS: 12/26/24, CT CT AB PEL WO CON-NO ORAL OR IV on DOS: 12/23/24, CT CT AB PEL WO CON-NO ORAL OR IV on DOS: 10/17/24, CT CT AB PEL WITH IV CON ONLY on DOS: 05/01, CT ABD PELVIS WO CONTRAST on DOS: 10/11/21 TECHNIQUE: Frontal views of the abdomen was obtained. FINDINGS: Bowel gas pattern is unremarkable. The lung bases are unremarkable. No acute osseous abnormality identified. IMPRESSION: Nonobstructive bowel gas pattern. large stool burden
--- NOTE | 2024-12-27 10:41 | DVH ---
EXAM: CT HEAD WITHOUT CONTRAST INDICATION: increased dizziness and headaches TECHNIQUE: CT of the head without intravenous contrast. Radiation Dose : 1. Head: CT Dose: CTDI volume is 91.56 mGy. Dose-length product is 1802.91 mGy*cm The dose indicators for CT are the volume Computed Tomography (CT) Dose Index (CTDIvol) and the Dose Length Product (DLP), and are measured in units of mGy and mGy-cm, respectively. These indicators are not patient dose, but values generated from the CT scanner acquisition factors. The report includes radiation exposure data for exposures received during this examination. COMPARISON: None FINDINGS: There is no evidence of acute intracranial hemorrhage, extra-axial collection, mass effect, midline s hift, herniation or hydrocephalus. The ventricles, sulci and cisterns are age appropriate. The clay-white differentiation is intact. The visualized paranasal sinuses and mastoid air cells are clear. The surrounding soft tissues and osseous structures are unremarkable. IMPRESSION: No acute intracranial abnormality. Radiation optimization: All CT scans at this facility use at least one of these dose optimization guilherme hniques: automated exposure control mA and/or kV adjustment per patient size (includes targeted exam s where dose is matched to clinical indication) or iterative reconstruction.
[2024-12-27] MEDS: POTASSIUM CHLORIDE 60 MEQ, LIDOCAINE 1% (LOCAL ANESTH.) 6 ML in SODIUM CHL 0.9% 500 ML IV ONE (11:00)
[2024-12-27] MEDS: MECLIZINE HCL 25 MG TAB PO PRN (12:59)
--- NOTE | 2024-12-27 13:58 | DVHPN2 ---
Subjective Patient is still complaining of epigastric and right upper quadrant pain. Pain is worse after eating food. Decreased appetite. Patient is still has nausea, and vomiting . Status post EGD Patient also complaining of no bowel movement for the past four weeks Reviewed: H&P Changes from previous H/P or p: No Changes General: Per HPI Eyes: No Pain, No Vision change, No Conjunctivae inflammation, No Eyelid inflammation, No Other, No Redness ENT: No Ear pain, No Ear discharge, No Nose pain, No Nose discharge, No Nose congestion, No Mouth pain, No Mouth swelling, No Throat pain, No Throat swelling, No Other Cardiovascular: No Chest Pain, No Palpitations, No Orthopnea, No Paroxysmal Noc. Dyspnea, No Edema, No Lt Headedness, No Other Respiratory: No Cough, No Dry, No Shortness of breath, No SOB with excertion, No Wheezing, No Hemoptysis, No Pleuritic Pain, No Sputum, No Other Gastrointestinal: Nausea, Vomiting, Abdominal Pain; No Diarrhea; Constipation; No Melena, No Hematochezia, No Other Genitourinary: No Dysuria, No Frequency, No Incontinence, No Hematuria, No Retention, No Other Musculoskeletal: No other, No neck pain, No shoulder pain, No arm pain, No back pain, No hand pain, No leg pain, No foot pain Skin: No Rash, No Lesions, No Jaundice, No Bruising, No Other Objective Vitals Vital Signs Date Time Temp Pulse Resp B/P (MAP) Pulse Ox O2 Delivery O2 Flow Rate FiO2 12/27/24 13:00 75 15 140/82 (101) 100 12/27/24 12:00 98.4 98.4 12/27/24 08:00 Room Air* 0 21 Intake/Output Intake and Output 12/27/24 07:00 Intake Total 775 ml Output Total 50 ml Balance 725 ml Intake Oral 425 ml IV Total 350 ml Emesis 50 ml # Voids 8 General Appearance: Alert, Oriented X3, Cooperative, No acute distress, mild distress, moderate distress, severe distress, Other Lungs: Clear to auscultation, Normal air movement, Other Cardiovascular: Regular rate, Normal S1, Normal S2, No murmurs, Gallops, Rubs, Other Abdomen: Normal bowel sounds, Soft, No tenderness (Patient positive for epigastric and right upper quadrant tenderness), No hepatospenomegaly, No masses , Other Medications Current Medications Medications Dose Ordered Sig/Malina Route Start Time Stop Time Status Last Admin Dose Admin Metronidazole 100 ml @ 100 mls/hr Q8H IV 12/23/24 02:30 12/27/24 08:48 100 MLS/HR Ceftriaxone Sodium 50 ml @ 100 mls/hr DAILY@09 IV 12/24/24 09:00 12/27/24 07:50 100 MLS/HR Acetaminophen/ Hydrocodone Bitart 1 tab Q4HP PRN PO 12/23/24 21:30 Docusate Sodium 100 mg BIDPRN PRN PO 12/23/24 21:30 Acetaminophen 650 mg Q6HP PRN PO 12/23/24 21:30 Nitroglycerin 0.4 mg Q5MINP PRN SL 12/23/24 21:30 Morphine Sulfate 2 mg Q30M PRN IV 12/23/24 21:30 Dextrose 50 ml UD PRN IV 12/24/24 18:15 Insulin Glargine 12 units DAILY@1000 SC 12/25/24 12:15 12/26/24 09:43 12 UNITS Metoclopramide HCl 10 mg BID IV 12/25/24 22:00 12/27/24 07:42 10 MG Meclizine HCl 25 mg Q8HPRN PRN PO 12/25/24 12:15 12/27/24 12:59 25 MG Diagnostic Test (Pha) 1 strip IQ4HR 12/25/24 16:00 12/27/24 09:45 1 STRIP Insulin Human Regular IQ4HR SC 12/25/24 16:00 12/26/24 20:07 3 UNITS Sucralfate 1 gm BID@0600,2200 PO 12/26/24 22:00 12/26/24 21:54 1 GM Pantoprazole Sodium 40 mg BID IV 12/27/24 10:00 12/27/24 09:44 40 MG Morphine Sulfate 1 mg Q6HP PRN IV 12/27/24 10:00 Prochlorperazine Edisylate 10 mg Q6HPRN PRN IV 12/27/24 10:00 Erythromycin 250 mg Q8HR PO 12/27/24 14:00 12/27/24 13:27 250 MG Laboratory Results Laboratory Tests 12/27/24 06:26 Chemistry Test 12/27/24 06:26 Albumin 3.9 g/dL (3.2-4.8) Calcium Level 9.8 mg/dL (8.7-10.4) Magnesium Level 1.7 mg/dL (1.6-2.6) Total Protein 6.4 g/dL (5.7-8.2) LFT Test 12/27/24 06:26 Alanine Aminotransferase (ALT) 10 U/L (7-40) Alkaline Phosphatase 76 U/L (46-116) Aspartate Amino Transferase (AST) 12 U/L (13-40) L Total Bilirubin 1.5 mg/dL (0.2-1.0) H Urinalysis Test 12/23/24 04:48 Urine Color Yellow (Yellow) Urine Clarity Clear (Clear) Urine pH 6.5 (5.0-9.0) Urine Specific [place] 1.024 (1.001-1.035) Urine Protein Trace (Negative) H Urine Ketones 4+ (Negative) H Urine Blood Negative /uL (Negative) Urine Nitrite Negative (Negative) Urine Bilirubin Negative (Negative) Urine Urobilinogen 2 mg/dL (Negative) H Urine Leukocyte Esterase Negative /uL (Negative) Urine RBC <1 /hpf (0 - 4) Urine Microscopic WBC 1 /HPF (0-5) Urine Squamous Epithelial Cells Few /hpf (<5) Urine Bacteria None seen /hpf (None Seen) Urine Mucus Few (None Seen) Urine Glucose Trace mg/dL (Normal) Microbiology Microbiology Date/Time Source Procedure Growth Status 12/24/24 18:15 Nose MRSA Screen - Final Complete 12/23/24 15:37 Blood Blood Culture - Preliminary NO GROWTH AFTER 72 HOURS OF INCUBATION. Resulted KUB IMPRESSION: Nonobstructive bowel gas pattern. large stool burden Labs and/or images reviewed: Labs reviewed by me, Image(s) reviewed by me Assessment/Plan Assessment/Plan Abdominal pain Nausea and vomiting Possible gastroenteritis Diverticulosis Possible DKA Plan Discussed with Dr. Hartman Flagyl 5 mg IV t.i.d. Continue Protonix and Carafate Right upper quadrant ultrasound for a elevated total bilirubin DC Flagyl as this might be possibly causing patient's persistent nausea and vomiting MiraLax and lactulose Fleet's enema if required Diet as tolerated Plan discussed with: Patient, Other (RN) My Orders Orders - CAROLYNN CARRERA Procedure Category Date Status Time Polyethylene Glycol PHA 12/27/24 Verified 17g Powder (Miralax 14:00 Lactulose Oral PHA 12/28/24 Verified 10:00 Abdomen Limited US 12/27/24 Verified 13:52 Comprehensive LAB 12/28/24 Verified Metabolic Panel 04:52 Date of Service: Dec 27, 2024 Billing Provider: CAROLYNN CARRERA Common Visit Codes: [id number] INP/OBS CARE(HIGH) CAROLYNN CARRERA Dec 27, 2024 13:58
[2024-12-27] MEDS ORDERED: ERYTHROMYCIN LACTOBIONATE 250 MG in SODIUM CHL 0.9% 100 ML IV SCH (14:00)
[2024-12-27] MEDS: POLYETHYLENE GLYCOL 17 GM PWDR PO ONE (14:00)
--- NOTE | 2024-12-27 14:41 | DVH ---
INDICATION: elevated T bili TECHNIQUE: Multiple real-time sonographic images were obtained of the right upper quadrant. COMPARISON: XY KUB ABDOMEN SINGLE VIEW on DOS: 12/27/24, CT CT AB PEL WITH IV CON ONLY on DOS: 12/26/24 , CT CT AB PEL WO CON-NO ORAL OR IV on DOS: 12/23/24, CT CT AB PEL WO CON-NO ORAL OR IV on DOS: 10/17/24 , CT CT AB PEL WITH IV CON ONLY on DOS: 05/01/24 FINDINGS: The liver demonstrates homogenous echotexture without focal mass lesions. The liver measure s 13 cm. There is no intrahepatic or extrahepatic ductal dilatation. The common duct measures 4 mm. Gallbladder is surgically absent. The right kidney measures 11 cm. The right kidney is normal in contour, size, and shape. The echogen icity is normal. There is no hydronephrosis. The pancreas is not well visualized due to overlying bowel gas. IMPRESSION: Status post cholecystectomy. No extrahepatic biliary ductal dilatation.
[2024-12-27] MEDS: PROCHLORPERAZINE EDISYLATE 5 MG/ML 2ML VIAL IV PRN (15:32)
[2024-12-27] MEDS: MORPHINE SULFATE INJ 2 MG/ml SYRG IV PRN (15:33)
[2024-12-27] MEDS: HYDROcodone-ACET 5/325MG TAB PO PRN (20:10)
[2024-12-27] MEDS: METOCLOPRAMIDE HCL 5MG/ml INJ 2ml VIAL IV SCH (21:53)
[2024-12-28] VITALS (8 sets, daily range): BP systolic 113–148; BP diastolic 74–91; PULSE 63–98; RESP 16–18; TEMP 97.1–98.2; O2SAT 99–100
[2024-12-28 07:03] LABS: Alkaline Phosphatase 68 U/L (46-116); Hematocrit 40.9 % (36.0-46.0); Hemoglobin 14.6 g/dL (12.2-16.2); Mean Corpuscular Hemoglobin 33.0 pg (28.0-32.0); Mean Corpuscular Volume 92.1 fL (80.0-100.0); Nucleated Red Blood Cells % 0.0 %
[2024-12-28 07:04] LABS: Alanine Aminotransferase 10 U/L (7-40); Albumin 3.5 g/dL (3.2-4.8); Anion Gap 12 (5-15); Bilirubin, Total 1.2 mg/dL (0.2-1.0); Calcium 9.3 mg/dL (8.7-10.4); Carbon Dioxide 22 mmol/L (20-31); Chloride 98 mmol/L (98-107); Magnesium 1.9 mg/dL (1.6-2.6); Total Protein 5.9 g/dL (5.7-8.2)
[2024-12-28 07:10] LABS: BUN/Creatinine Ratio 12.5 (10.0-20.0); Blood Urea Nitrogen < 5 mg/dL (9-23); Glucose 118 mg/dL (74-106); Potassium 3.2 mmol/L (3.5-5.1); Sodium 132 mmol/L (136-145)
--- NOTE | 2024-12-28 10:00 | ECG ---
[facility] Test Date: 2024-12-23 Test Time: 11:53:16 Pat Name: YOSVANY KING Department: Room: 0248T B Gender: F [id number] Developer: BRI : [id number] Requested By: DOMINIC AHMADI Order Number: [id number] Reading MD: Kt Leonard Measurements Intervals [place] Rate: 70 P: -41 FL: 99 QRS: 39 QRSD: 81 T: 38 QT: 425 QTc: 459 Interpretive Statements Sinus rhythm Short FL interval Abnormal R-wave progression, early transition Baseline wander in lead(s) V3 Electronically Signed On 12-28-2024 15:10:20 PDT by Kt Leonard Please click the below link to view image of tracing.
[2024-12-28] MEDS: LACTULOSE 20Gm/30ML SOLN PO SCH (10:03)
[2024-12-28] MEDS: POLYETHYLENE GLYCOL 17 GM PWDR PO ONE (10:03)
--- NOTE | 2024-12-28 13:08 | ECG ---
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
--- NOTE | 2024-12-28 13:37 | DVHPN2 ---
Subjective Patient is still complaining of epigastric and right upper quadrant pain. Patient admits to only having small bowel movements after MiraLax and lactulose No melena or red blood in stool Patient is status post incomplete colonoscopy at [facility] 3-4 months ago due to poor bowel prep Reviewed: H&P Changes from previous H/P or p: No Changes General: Per HPI Eyes: No Pain, No Vision change, No Conjunctivae inflammation, No Eyelid inflammation, No Other, No Redness ENT: No Ear pain, No Ear discharge, No Nose pain, No Nose discharge, No Nose congestion, No Mouth pain, No Mouth swelling, No Throat pain, No Throat swelling, No Other Cardiovascular: No Chest Pain, No Palpitations, No Orthopnea, No Paroxysmal Noc. Dyspnea, No Edema, No Lt Headedness, No Other Respiratory: No Cough, No Dry, No Shortness of breath, No SOB with excertion, No Wheezing, No Hemoptysis, No Pleuritic Pain, No Sputum, No Other Gastrointestinal: Nausea, Vomiting, Abdominal Pain; No Diarrhea; Constipation; No Melena, No Hematochezia, No Other Genitourinary: No Dysuria, No Frequency, No Incontinence, No Hematuria, No Retention, No Other Musculoskeletal: No other, No neck pain, No shoulder pain, No arm pain, No back pain, No hand pain, No leg pain, No foot pain Skin: No Rash, No Lesions, No Jaundice, No Bruising, No Other Objective Vitals Vital Signs Date Time Temp Pulse Resp B/P (MAP) Pulse Ox O2 Delivery O2 Flow Rate FiO2 12/28/24 12:59 97.1 76 18 120/83 (95) 100 97.1 12/28/24 08:00 Room Air* 0 21 Intake/Output Intake and Output 12/28/24 06:59 Intake Total 957.332 ml Balance 957.332 ml Intake Oral 350 ml IV Total 607.332 ml # Voids 4 General Appearance: Alert, Oriented X3, Cooperative, No acute distress, mild distress, moderate distress, severe distress, Other Lungs: Clear to auscultation Cardiovascular: Regular rate, Normal S1, Normal S2, No murmurs, Gallops, Rubs, Other Abdomen: Normal bowel sounds, Soft, No tenderness (Patient positive for epigastric and right upper quadrant tenderness), No hepatospenomegaly, No masses , Other Medications Current Medications Medications Dose Ordered Sig/Malina Route Start Time Stop Time Status Last Admin Dose Admin Ceftriaxone Sodium 50 ml @ 100 mls/hr DAILY@09 IV 12/24/24 09:00 12/28/24 10:03 100 MLS/HR Acetaminophen/ Hydrocodone Bitart 1 tab Q4HP PRN PO 12/23/24 21:30 12/27/24 20:10 1 TAB Docusate Sodium 100 mg BIDPRN PRN PO 12/23/24 21:30 Acetaminophen 650 mg Q6HP PRN PO 12/23/24 21:30 Nitroglycerin 0.4 mg Q5MINP PRN SL 12/23/24 21:30 Morphine Sulfate 2 mg Q30M PRN IV 12/23/24 21:30 Dextrose 50 ml UD PRN IV 12/24/24 18:15 Insulin Glargine 12 units DAILY@1000 SC 12/25/24 12:15 12/26/24 09:43 12 UNITS Meclizine HCl 25 mg Q8HPRN PRN PO 12/25/24 12:15 12/28/24 10:11 25 MG Diagnostic Test (Pha) 1 strip IQ4HR 12/25/24 16:00 12/28/24 08:02 1 STRIP Insulin Human Regular IQ4HR SC 12/25/24 16:00 12/27/24 20:09 2 UNITS Sucralfate 1 gm BID@0600,2200 PO 12/26/24 22:00 12/28/24 05:47 1 GM Pantoprazole Sodium 40 mg BID IV 12/27/24 10:00 12/28/24 10:03 40 MG Prochlorperazine Edisylate 10 mg Q6HPRN PRN IV 12/27/24 10:00 12/27/24 15:32 10 MG Erythromycin 250 mg Q8HR PO 12/27/24 14:00 12/28/24 05:47 250 MG Lactulose 30 ml DAILY PO 12/28/24 10:00 12/28/24 10:03 30 ML Morphine Sulfate 2 mg Q6HP PRN IV 12/27/24 14:30 12/27/24 21:54 2 MG Metoclopramide HCl 10 mg TID IV 12/27/24 22:00 12/28/24 05:47 10 MG Laboratory Results Laboratory Tests 12/28/24 06:30 Chemistry Test 12/28/24 06:30 Albumin 3.5 g/dL (3.2-4.8) Calcium Level 9.3 mg/dL (8.7-10.4) Magnesium Level 1.9 mg/dL (1.6-2.6) Total Protein 5.9 g/dL (5.7-8.2) LFT Test 12/28/24 06:30 Alanine Aminotransferase (ALT) 10 U/L (7-40) Alkaline Phosphatase 68 U/L (46-116) Aspartate Amino Transferase (AST) 12 U/L (13-40) L Total Bilirubin 1.2 mg/dL (0.2-1.0) H Urinalysis Test 12/23/24 04:48 Urine Color Yellow (Yellow) Urine Clarity Clear (Clear) Urine pH 6.5 (5.0-9.0) Urine Specific [place] 1.024 (1.001-1.035) Urine Protein Trace (Negative) H Urine Ketones 4+ (Negative) H Urine Blood Negative /uL (Negative) Urine Nitrite Negative (Negative) Urine Bilirubin Negative (Negative) Urine Urobilinogen 2 mg/dL (Negative) H Urine Leukocyte Esterase Negative /uL (Negative) Urine RBC <1 /hpf (0 - 4) Urine Microscopic WBC 1 /HPF (0-5) Urine Squamous Epithelial Cells Few /hpf (<5) Urine Bacteria None seen /hpf (None Seen) Urine Mucus Few (None Seen) Urine Glucose Trace mg/dL (Normal) Microbiology Microbiology Date/Time Source Procedure Growth Status 12/24/24 18:15 Nose MRSA Screen - Final Complete 12/23/24 15:37 Blood Blood Culture - Preliminary NO GROWTH AFTER 72 HOURS OF INCUBATION. Resulted Labs and/or images reviewed: Labs reviewed by me, Image(s) reviewed by me Assessment/Plan Assessment/Plan Abdominal pain Nausea and vomiting Possible gastroenteritis Diverticulosis Possible DKA Plan Discussed with Dr. Hartman Schedule patient for colonoscopy with biopsy and polypectomy on 12/29/2024. Discussed risks, benefits and alternatives of procedure and sedation patient understands and agrees Plan discussed with: Patient, Other (RN) My Orders Orders - CAROLYNN CARRERA Procedure Category Date Status Time Lactulose Oral PHA 12/28/24 In Process 10:00 Abdomen Limited US 12/27/24 Resulted 13:52 Obtain Consent For: ORDERS 12/28/24 Transmitted 13:30 Npo (Nothing By DIET 12/28/24 Transmitted Mouth) Diet Dinner Peg 8062-[id number]-[id number] PHA 12/28/24 Logged Bicarb-Sod Ch 13:30 Peg [id number] PHA 12/29/24 Logged Bicarb-Sod Ch 06:00 Magnesium Citrate PHA 12/29/24 Logged Solution (Citrate Of M 06:00 Tap Water Enema ORDERS 12/28/24 Transmitted 13:30 Magnesium Citrate PHA 12/28/24 Logged Solution (Citrate Of M 13:30 Date of Service: Dec 28, 2024 Billing Provider: CAROLYNN CARRERA Common Visit Codes: [id number] INP/OBS CARE(HIGH) CAROLYNN CARRERA Dec 28, 2024 13:37
[2024-12-28] MEDS: FLEET ENEMA(ADULT) 135 ML PR ONE (13:54)
[2024-12-28] MEDS: MAGNESIUM CITRATE SOLUTION 300 ML BTL PO ONE (16:25)
[2024-12-28] MEDS: GOLYTELY 4L KIT PO ONE (16:25)
[2024-12-28] MEDS: POTASSIUM CHLORIDE 40 MEQ, LIDOCAINE 1% (LOCAL ANESTH.) 4 ML in SODIUM CHL 0.9% 250 ML IV ONE (16:25)
--- NOTE | 2024-12-28 16:27 | DVHPN2 ---
Subjective Patient is still nauseous with abdominal pain Reviewed: H&P Changes from previous H/P or p: No Changes General: Per HPI Eyes: No Pain, No Vision change, No Conjunctivae inflammation, No Eyelid inflammation, No Other, No Redness ENT: No Ear pain, No Ear discharge, No Nose pain, No Nose discharge, No Nose congestion, No Mouth pain, No Mouth swelling, No Throat pain, No Throat swelling, No Other Cardiovascular: No Chest Pain, No Palpitations, No Orthopnea, No Paroxysmal Noc. Dyspnea, No Edema, No Lt Headedness, No Other Respiratory: No Cough, No Dry, No Shortness of breath, No SOB with excertion, No Wheezing, No Hemoptysis, No Pleuritic Pain, No Sputum, No Other Gastrointestinal: Nausea, Vomiting, Abdominal Pain; No Diarrhea; Constipation; No Melena, No Hematochezia, No Other Genitourinary: No Dysuria, No Frequency, No Incontinence, No Hematuria, No Retention, No Other Musculoskeletal: No other, No neck pain, No shoulder pain, No arm pain, No back pain, No hand pain, No leg pain, No foot pain Skin: No Rash, No Lesions, No Jaundice, No Bruising, No Other Objective Vitals Vital Signs Date Time Temp Pulse Resp B/P (MAP) Pulse Ox O2 Delivery O2 Flow Rate FiO2 12/28/24 14:25 76 18 120/83 12/28/24 12:59 97.1 100 97.1 12/28/24 08:00 Room Air* 0 21 Intake/Output Intake and Output 12/28/24 07:00 Intake Total 957.332 ml Balance 957.332 ml Intake Oral 350 ml IV Total 607.332 ml # Voids 4 Exam GEN: Healthy appearing, well-developed, NAD. HEENT: NC/AT; MMM. CV: RRR, no m/r/g. LUNGS: CTAB, no w/r/c. ABD: Hypoactive bowel sounds, tender to palpation epigastrium EXT: skin Warm, well perfused. no rashes. No clubbing, cyanosis, or edema. NEURO: Ambulating with no limitations. No focal deficits. General Appearance: Alert, Oriented X3, Cooperative, No acute distress, mild distress, moderate distress, severe distress, Other Lungs: Clear to auscultation Cardiovascular: Regular rate, Normal S1, Normal S2, No murmurs, Gallops, Rubs, Other Abdomen: Normal bowel sounds, Soft, No tenderness (Patient positive for epigastric and right upper quadrant tenderness), No hepatospenomegaly, No masses , Other Medications Current Medications Medications Dose Ordered Sig/Malina Route Start Time Stop Time Status Last Admin Dose Admin Ceftriaxone Sodium 50 ml @ 100 mls/hr DAILY@09 IV 12/24/24 09:00 12/28/24 10:03 100 MLS/HR Acetaminophen/ Hydrocodone Bitart 1 tab Q4HP PRN PO 12/23/24 21:30 12/27/24 20:10 1 TAB Docusate Sodium 100 mg BIDPRN PRN PO 12/23/24 21:30 Acetaminophen 650 mg Q6HP PRN PO 12/23/24 21:30 Nitroglycerin 0.4 mg Q5MINP PRN SL 12/23/24 21:30 Morphine Sulfate 2 mg Q30M PRN IV 12/23/24 21:30 Dextrose 50 ml UD PRN IV 12/24/24 18:15 Insulin Glargine 12 units DAILY@1000 SC 12/25/24 12:15 12/28/24 13:32 12 UNITS Meclizine HCl 25 mg Q8HPRN PRN PO 12/25/24 12:15 12/28/24 10:11 25 MG Diagnostic Test (Pha) 1 strip IQ4HR 12/25/24 16:00 12/28/24 13:31 1 STRIP Insulin Human Regular IQ4HR SC 12/25/24 16:00 12/28/24 13:33 6 UNITS Sucralfate 1 gm BID@0600,2200 PO 12/26/24 22:00 12/28/24 05:47 1 GM Pantoprazole Sodium 40 mg BID IV 12/27/24 10:00 12/28/24 10:03 40 MG Prochlorperazine Edisylate 10 mg Q6HPRN PRN IV 12/27/24 10:00 12/27/24 15:32 10 MG Erythromycin 250 mg Q8HR PO 12/27/24 14:00 12/28/24 14:14 250 MG Lactulose 30 ml DAILY PO 12/28/24 10:00 12/28/24 10:03 30 ML Morphine Sulfate 2 mg Q6HP PRN IV 12/27/24 14:30 12/28/24 14:25 2 MG Metoclopramide HCl 10 mg TID IV 12/27/24 22:00 12/28/24 14:14 10 MG Laboratory Results Laboratory Tests 12/28/24 06:30 Chemistry Test 12/28/24 06:30 Albumin 3.5 g/dL (3.2-4.8) Calcium Level 9.3 mg/dL (8.7-10.4) Magnesium Level 1.9 mg/dL (1.6-2.6) Total Protein 5.9 g/dL (5.7-8.2) LFT Test 12/28/24 06:30 Alanine Aminotransferase (ALT) 10 U/L (7-40) Alkaline Phosphatase 68 U/L (46-116) Aspartate Amino Transferase (AST) 12 U/L (13-40) L Total Bilirubin 1.2 mg/dL (0.2-1.0) H Urinalysis Test 12/23/24 04:48 Urine Color Yellow (Yellow) Urine Clarity Clear (Clear) Urine pH 6.5 (5.0-9.0) Urine Specific [place] 1.024 (1.001-1.035) Urine Protein Trace (Negative) H Urine Ketones 4+ (Negative) H Urine Blood Negative /uL (Negative) Urine Nitrite Negative (Negative) Urine Bilirubin Negative (Negative) Urine Urobilinogen 2 mg/dL (Negative) H Urine Leukocyte Esterase Negative /uL (Negative) Urine RBC <1 /hpf (0 - 4) Urine Microscopic WBC 1 /HPF (0-5) Urine Squamous Epithelial Cells Few /hpf (<5) Urine Bacteria None seen /hpf (None Seen) Urine Mucus Few (None Seen) Urine Glucose Trace mg/dL (Normal) Microbiology Microbiology Date/Time Source Procedure Growth Status 12/24/24 18:15 Nose MRSA Screen - Final Complete 12/23/24 15:37 Blood Blood Culture - Final NO GROWTH AFTER 5 DAYS OF INCUBATION. Complete Labs and/or images reviewed: Labs reviewed by me, Image(s) reviewed by me Assessment/Plan Assessment/Plan 59-year-old female with multiple past medical history including anxiety, DM, UTIs, and hyperlipidemia who presented to [facility] ED with complaint of abdominal pain for the past 3 weeks. Patient reports she has been having acute abdominal pain, associated with nausea, hematemesis, constipation, getting worse that prompted this visit. Patient has been seem multiple times at this ED including [place] where her PCP referred her to [facility]. Patient has gotten multiple CT scans down at each facility which resulted non acute and was referred to see a GI. Patient has an appointment with GI on 01/17/25, but states pain is severe, sharp and rating 10/10 numeric rating scale. 12/24: GI consult was placed on admit, recommending UDS, Protonix Carafate, Colace MiraLax, elective C scope outpatient. Otherwise continue IV antibiotics, IV fluids, prn antiemetic/analgesia. Patient has a anion gap, acidosis, history of taking Jardiance euglycemic DKA concern as possible we will get ABG, ketosis severe on UA. Lactic acidosis was negative -patient has history of taking Jardiance, significant gap with beta hydroxy butyrate, ABG shows metabolic alkalosis likely from emesis and hyperventilation. We will upgrade to D OU and start DKA protocol for euglycemic DKA., continuous insulin at 3 units per hour (no loading insulin, stop any long-acting insulin), maintain fluids with D5 half NS with 20 KCL at rate 200 cc/hour,. Titrate fluids and insulin per DKA protocol with goal to close gap. At gap closure can transition patient with 12 unit Lantus and to clear liquid diet, NPO otherwise. Can continue prn analgesia, prn antiemetics. BMP b.i.d. to closely monitor potassium and gap. 12/25: The gap closed this morning 211, increase back to 14. Could possibly be starvation ketosis. We will try transition today turning down insulin drip and IV fluids, started Lantus 12 and we will feed and into hours ago start sliding scale as well. Repeat BNP 4:00 p.m.. Start Reglan 10 IV b.i.d. for possible gastroparesis. Start meclizine 25 mg PO prn t.i.d. for dizziness. Patient BNP looks well tolerating p.o. this evening we will deescalate to telemetry. 12/26: Patient has plan for EGD today she is NPO. Gap remains closed. Reglan IV b.i.d. was started yesterday patient is feeling better dry heaving as resolved. She still has some nausea. Headache dizziness is also resolving likely with Reglan. After EGD patient can deescalate to telemetry. Patient is complaining of a ball suprapubic, she has and fixed mass right suprapubic region no erythema. We will get CT abdomen pelvis with IV contrast to assess this mass. 12/27: Patient continues to have nausea cramps. Continues to have dizziness. Getting CT head, upright KUB, continuing Reglan 10 mg IV b.i.d., Zofran is not effective. QTC is 430, we will convert Zofran to Compazine. Compazine 10 q.6h PRN for nausea. GI to eval. Patient asking if she is colonoscopy. Starting erythromycin 250 mg q.8h as the 2nd prokinetic. 12/28: We have tried multiple modalities to improve patient's pain, but she continues to complain of cramping and abdominal pain and asking for further procedures. Patient is tolerating p.o., but has not had a bowel movement for 5 days, we will give enema today and continue lactulose and Reglan 10 IV t.i.d. I am slowly becoming more concern of factitious/psychogenic origin of these complaints. We will give enema today. GI has evaluated the patient and wants to proceed with colonoscopy tomorrow. We will reassess and possibly DC tomorrow diagnosis: Acute gastroenteritis, infectious etiology likely Diverticulosis, possible early diverticulitis early DKA, early euglycemic DKA possible Respiratory alkalosis, with anion gap metabolic acidosis, with metabolic alkalosis from emesis Ketoacidosis, from DKA and/or starvation Intractable abdominal pain, likely due to above P.o. intolerance likely due to above intractable nausea, likely due to above Constipation possible anxiety DM hx UTIs hyperlipidemia Plan: Continue IV antibiotics Continue clear liquid diet Continue antiemetics Continue prn analgesia, GI following appreciate recommendations Continue Protonix Carafate Continue Colace MiraLax D OU Full code Plan discussed with: Patient Date of Service: Dec 28, 2024 Billing Provider: DOMINIC VALLADARES MD Common Visit Codes: [id number] INP/OBS CARE(HIGH) DOMINIC VALLADARES MD Dec 28, 2024 16:27
[2024-12-29] VITALS (8 sets, daily range): BP systolic 116–146; BP diastolic 72–89; PULSE 69–116; RESP 16–18; TEMP 97.6–97.9; O2SAT 98–100
[2024-12-29] MEDS: MAGNESIUM CITRATE SOLUTION 300 ML BTL PO ONE (06:41)
[2024-12-29] MEDS: GOLYTELY 4L KIT PO ONE (06:42)
[2024-12-29 07:50] LABS: Alanine Aminotransferase 12 U/L (7-40); Albumin 4.3 g/dL (3.2-4.8); Alkaline Phosphatase 77 U/L (46-116); Anion Gap 12 (5-15); BUN/Creatinine Ratio 15.6 (10.0-20.0); Calcium 10.1 mg/dL (8.7-10.4); Carbon Dioxide 26 mmol/L (20-31); Chloride 98 mmol/L (98-107); Glucose 97 mg/dL (74-106); Total Protein 7.2 g/dL (5.7-8.2)
[2024-12-29 07:51] LABS: Bilirubin, Total 1.1 mg/dL (0.2-1.0); Blood Urea Nitrogen 7 mg/dL (9-23); Potassium 3.4 mmol/L (3.5-5.1); Sodium 136 mmol/L (136-145)
--- NOTE | 2024-12-29 12:54 | DVHPN2 ---
Subjective Patient is still nauseous with abdominal pain Reviewed: H&P Changes from previous H/P or p: No Changes General: Per HPI Eyes: No Pain, No Vision change, No Conjunctivae inflammation, No Eyelid inflammation, No Other, No Redness ENT: No Ear pain, No Ear discharge, No Nose pain, No Nose discharge, No Nose congestion, No Mouth pain, No Mouth swelling, No Throat pain, No Throat swelling, No Other Cardiovascular: No Chest Pain, No Palpitations, No Orthopnea, No Paroxysmal Noc. Dyspnea, No Edema, No Lt Headedness, No Other Respiratory: No Cough, No Dry, No Shortness of breath, No SOB with excertion, No Wheezing, No Hemoptysis, No Pleuritic Pain, No Sputum, No Other Gastrointestinal: Nausea, Vomiting, Abdominal Pain; No Diarrhea; Constipation; No Melena, No Hematochezia, No Other Genitourinary: No Dysuria, No Frequency, No Incontinence, No Hematuria, No Retention, No Other Musculoskeletal: No other, No neck pain, No shoulder pain, No arm pain, No back pain, No hand pain, No leg pain, No foot pain Skin: No Rash, No Lesions, No Jaundice, No Bruising, No Other Objective Vitals Vital Signs Date Time Temp Pulse Resp B/P (MAP) Pulse Ox O2 Delivery O2 Flow Rate FiO2 12/29/24 08:57 97.9 74 18 146/89 (108) 99 97.9 12/29/24 08:00 Room Air* 0 21 Intake/Output Intake and Output 12/29/24 07:00 Intake Total 1450 ml Balance 1450 ml Intake Oral 1400 ml IV Total 50 ml # Voids 12 # Bowel Movements 12 Exam GEN: Healthy appearing, well-developed, NAD. HEENT: NC/AT; MMM. CV: RRR, no m/r/g. LUNGS: CTAB, no w/r/c. ABD: Hypoactive bowel sounds, tender to palpation epigastrium EXT: skin Warm, well perfused. no rashes. No clubbing, cyanosis, or edema. NEURO: Ambulating with no limitations. No focal deficits. General Appearance: Alert, Oriented X3, Cooperative, No acute distress, mild distress, moderate distress, severe distress, Other Lungs: Clear to auscultation Cardiovascular: Regular rate, Normal S1, Normal S2, No murmurs, Gallops, Rubs, Other Abdomen: Normal bowel sounds, Soft, No tenderness (Patient positive for epigastric and right upper quadrant tenderness), No hepatospenomegaly, No masses , Other Medications Current Medications Medications Dose Ordered Sig/Malina Route Start Time Stop Time Status Last Admin Dose Admin Ceftriaxone Sodium 50 ml @ 100 mls/hr DAILY@09 IV 12/24/24 09:00 12/29/24 09:23 100 MLS/HR Acetaminophen/ Hydrocodone Bitart 1 tab Q4HP PRN PO 12/23/24 21:30 12/27/24 20:10 1 TAB Docusate Sodium 100 mg BIDPRN PRN PO 12/23/24 21:30 Acetaminophen 650 mg Q6HP PRN PO 12/23/24 21:30 Nitroglycerin 0.4 mg Q5MINP PRN SL 12/23/24 21:30 Morphine Sulfate 2 mg Q30M PRN IV 12/23/24 21:30 Dextrose 50 ml UD PRN IV 12/24/24 18:15 Insulin Glargine 12 units DAILY@1000 SC 12/25/24 12:15 12/28/24 13:32 12 UNITS Meclizine HCl 25 mg Q8HPRN PRN PO 12/25/24 12:15 12/28/24 10:11 25 MG Diagnostic Test (Pha) 1 strip IQ4HR 12/25/24 16:00 12/29/24 11:59 1 STRIP Insulin Human Regular IQ4HR SC 12/25/24 16:00 12/28/24 19:58 3 UNITS Sucralfate 1 gm BID@0600,2200 PO 12/26/24 22:00 12/29/24 05:47 1 GM Pantoprazole Sodium 40 mg BID IV 12/27/24 10:00 12/29/24 09:23 40 MG Prochlorperazine Edisylate 10 mg Q6HPRN PRN IV 12/27/24 10:00 12/27/24 15:32 10 MG Erythromycin 250 mg Q8HR PO 12/27/24 14:00 12/29/24 05:47 250 MG Lactulose 30 ml DAILY PO 12/28/24 10:00 12/28/24 10:03 30 ML Morphine Sulfate 2 mg Q6HP PRN IV 12/27/24 14:30 12/28/24 22:30 2 MG Metoclopramide HCl 10 mg TID IV 12/27/24 22:00 12/29/24 05:47 10 MG Laboratory Results Laboratory Tests 12/28/24 06:30 12/29/24 06:35 Chemistry Test 12/29/24 06:35 Albumin 4.3 g/dL (3.2-4.8) Calcium Level 10.1 mg/dL (8.7-10.4) Total Protein 7.2 g/dL (5.7-8.2) LFT Test 12/29/24 06:35 Alanine Aminotransferase (ALT) 12 U/L (7-40) Alkaline Phosphatase 77 U/L (46-116) Aspartate Amino Transferase (AST) 13 U/L (13-40) Total Bilirubin 1.1 mg/dL (0.2-1.0) H Urinalysis Test 12/23/24 04:48 Urine Color Yellow (Yellow) Urine Clarity Clear (Clear) Urine pH 6.5 (5.0-9.0) Urine Specific [place] 1.024 (1.001-1.035) Urine Protein Trace (Negative) H Urine Ketones 4+ (Negative) H Urine Blood Negative /uL (Negative) Urine Nitrite Negative (Negative) Urine Bilirubin Negative (Negative) Urine Urobilinogen 2 mg/dL (Negative) H Urine Leukocyte Esterase Negative /uL (Negative) Urine RBC <1 /hpf (0 - 4) Urine Microscopic WBC 1 /HPF (0-5) Urine Squamous Epithelial Cells Few /hpf (<5) Urine Bacteria None seen /hpf (None Seen) Urine Mucus Few (None Seen) Urine Glucose Trace mg/dL (Normal) Microbiology Microbiology Date/Time Source Procedure Growth Status 12/24/24 18:15 Nose MRSA Screen - Final Complete 12/23/24 15:37 Blood Blood Culture - Final NO GROWTH AFTER 5 DAYS OF INCUBATION. Complete Labs and/or images reviewed: Labs reviewed by me, Image(s) reviewed by me Assessment/Plan Assessment/Plan 59-year-old female with multiple past medical history including anxiety, DM, UTIs, and hyperlipidemia who presented to [facility] ED with complaint of abdominal pain for the past 3 weeks. Patient reports she has been having acute abdominal pain, associated with nausea, hematemesis, constipation, getting worse that prompted this visit. Patient has been seem multiple times at this ED including [facility] where her PCP referred her to [facility]. Patient has gotten multiple CT scans down at each facility which resulted non acute and was referred to see a GI. Patient has an appointment with GI on 01/17/25, but states pain is severe, sharp and rating 10/10 numeric rating scale. 12/24: GI consult was placed on admit, recommending UDS, Protonix Carafate, Colace MiraLax, elective C scope outpatient. Otherwise continue IV antibiotics, IV fluids, prn antiemetic/analgesia. Patient has a anion gap, acidosis, history of taking Jardiance euglycemic DKA concern as possible we will get ABG, ketosis severe on UA. Lactic acidosis was negative -patient has history of taking Jardiance, significant gap with beta hydroxy butyrate, ABG shows metabolic alkalosis likely from emesis and hyperventilation. We will upgrade to D OU and start DKA protocol for euglycemic DKA., continuous insulin at 3 units per hour (no loading insulin, stop any long-acting insulin), maintain fluids with D5 half NS with 20 KCL at rate 200 cc/hour,. Titrate fluids and insulin per DKA protocol with goal to close gap. At gap closure can transition patient with 12 unit Lantus and to clear liquid diet, NPO otherwise. Can continue prn analgesia, prn antiemetics. BMP b.i.d. to closely monitor potassium and gap. 12/25: The gap closed this morning 211, increase back to 14. Could possibly be starvation ketosis. We will try transition today turning down insulin drip and IV fluids, started Lantus 12 and we will feed and into hours ago start sliding scale as well. Repeat BNP 4:00 p.m.. Start Reglan 10 IV b.i.d. for possible gastroparesis. Start meclizine 25 mg PO prn t.i.d. for dizziness. Patient BNP looks well tolerating p.o. this evening we will deescalate to telemetry. 12/26: Patient has plan for EGD today she is NPO. Gap remains closed. Reglan IV b.i.d. was started yesterday patient is feeling better dry heaving as resolved. She still has some nausea. Headache dizziness is also resolving likely with Reglan. After EGD patient can deescalate to telemetry. Patient is complaining of a ball suprapubic, she has and fixed mass right suprapubic region no erythema. We will get CT abdomen pelvis with IV contrast to assess this mass. 12/27: Patient continues to have nausea cramps. Continues to have dizziness. Getting CT head, upright KUB, continuing Reglan 10 mg IV b.i.d., Zofran is not effective. QTC is 430, we will convert Zofran to Compazine. Compazine 10 q.6h PRN for nausea. GI to eval. Patient asking if she is colonoscopy. Starting erythromycin 250 mg q.8h as the 2nd prokinetic. 12/28: We have tried multiple modalities to improve patient's pain, but she continues to complain of cramping and abdominal pain and asking for further procedures. Patient is tolerating p.o., but has not had a bowel movement for 5 days, we will give enema today and continue lactulose and Reglan 10 IV t.i.d. I am slowly becoming more concern of factitious/psychogenic origin of these complaints. We will give enema today. GI has evaluated the patient and wants to proceed with colonoscopy tomorrow. We will reassess and possibly DC tomorrow 12/29: Patient is going for EGD today, continues to have pain. She appears very anxious, had enema yesterday and later bowel prep, having multiple movements now bowel sounds hyperactive. If remains stable, likely discharge tomorrow. - colon with diverticulosis and narrowing in sigmoid -- tentative discharge plan: Take Zofran ODT PRN, scheduled Reglan p.o. 10 mg b.i.d. x10 day, pain control. diagnosis: Acute gastroenteritis, infectious etiology likely Diverticulosis, possible early diverticulitis early DKA, early euglycemic DKA possible Respiratory alkalosis, with anion gap metabolic acidosis, with metabolic alkalosis from emesis Ketoacidosis, from DKA and/or starvation Intractable abdominal pain, likely due to above P.o. intolerance likely due to above intractable nausea, likely due to above Constipation possible anxiety DM hx UTIs hyperlipidemia Plan: Continue IV antibiotics Continue clear liquid diet Continue antiemetics Continue prn analgesia, GI following appreciate recommendations Continue Protonix Carafate Continue Colace MiraLax D OU Full code Plan discussed with: Patient Date of Service: Dec 29, 2024 Billing Provider: DOMINIC VALLADARES MD Common Visit Codes: [id number] INP/OBS CARE(HIGH) DOMINIC VALLADARES MD Dec 29, 2024 12:54
[2024-12-29] MEDS ORDERED: METOCLOPRAMIDE HCL 5MG/ml INJ 2ml VIAL ONE (13:06)
[2024-12-29] MEDS ORDERED: ONDANSETRON HCL 4 MG/2 ML VIAL ONE (13:06)
[2024-12-29] MEDS ORDERED: PROPOFOL 10 MG/ML 20 ML IV ONE (13:06)
--- NOTE | 2024-12-29 13:46 | DVHOP2 ---
Operative Report DATE OF OPERATION: 12/29/24 PROCEDURE: Colonoscopy with hot snare polypectomy. PREOPERATIVE INDICATION: The patient is a 59 -year-old female undergoing colonoscopy for abdominal pain and constipation POSTOPERATIVE DIAGNOSES: 1. Moderate sigmoid diverticular disease with sigmoid fixation tortuosity and m inimal diverticular associated sigmoiditis 2. 1.5-2 cm multi lobe flat benign polyp was seen in the proximal ascending colon and removed completely via hot snare polypectomy 3. Trace internal hemorrhoids otherwise essentially completely normal colonoscop y examination up to the cecum PROCEDURE PERFORMED BY: Karthik Hartman M.D. SCOPE: Olympus videocolonoscope. ASA CLASS: 3 PREOPERATIVE MEDICATIONS: Mac sedation, Baltazar membreno PROCEDURE IN DETAIL: After obtaining an informed consent, the patient was placed on left lateral decubitus position. She was then sedated with the above medications. A rectal examination was performed that was normal. The colonoscope was then passed through the anus into the rectosigmoid and through the descending, transverse, and ascending colon up to the cecum with visualization of the appendiceal orifice, base of the cecum and the ileocecal valve. The colonoscope was then withdrawn. In the proximal to mid ascending colon there was a 1.5-2 cm multi lobe benign flat appearing call polyp This was removed completely in a piecemeal fashion via hot snare polypectomy. No other polyps or masses were seen. Patient had a somewhat limited study due to poor prep however careful irrigation aspiration was performed no other lesion were seen The patient did have moderate sigmoid diverticular disease with sigmoid fixation tortuosity and minimal diverticular associated sigmoiditis On retroflexion and straight on view the patient had trace to 1+ internal he morrhoids The patient tolerated the procedure well without difficulty. WITHDRAWAL TIME: 13 minutes QUALITY OF THE PREP: [place] Bowel Prep score: 7. COMPLICATIONS : None SPECIMENS: Ascending colon polyp DISPOSITION: Transfer back to the floor Stable PLAN: 1. Repeat colonoscopy base on biopsy result likely in 2-3 years 2. Resume GI soft diet advance as tolerated 3. Continue oral antibiotic treatment for 5-7 days for mild sigmoiditis/diverticulitis 4. Stool softeners and pain management; hold aspirin and blood thinners for one week 5. Outpatient follow up with me in 4-6 weeks to review results and discuss further management KARTHIK HARTMAN MD Dec 29, 2024 13:46
[2024-12-30] VITALS (8 sets, daily range): BP systolic 106–123; BP diastolic 48–84; PULSE 66–100; RESP 16–18; TEMP 97.2–98.3; O2SAT 98–100
--- NOTE | 2024-12-30 15:43 | DVHPN2 ---
Subjective Patient reporting have abdominal pain with mechanical soft diet. Reviewed: H&P Changes from previous H/P or p: No Changes General: Per HPI Eyes: No Pain, No Vision change, No Conjunctivae inflammation, No Eyelid inflammation, No Other, No Redness ENT: No Ear pain, No Ear discharge, No Nose pain, No Nose discharge, No Nose congestion, No Mouth pain, No Mouth swelling, No Throat pain, No Throat swelling, No Other Cardiovascular: No Chest Pain, No Palpitations, No Orthopnea, No Paroxysmal Noc. Dyspnea, No Edema, No Lt Headedness, No Other Respiratory: No Cough, No Dry, No Shortness of breath, No SOB with excertion, No Wheezing, No Hemoptysis, No Pleuritic Pain, No Sputum, No Other Gastrointestinal: Nausea, Vomiting, Abdominal Pain; No Diarrhea; Constipation; No Melena, No Hematochezia, No Other Genitourinary: No Dysuria, No Frequency, No Incontinence, No Hematuria, No Retention, No Other Musculoskeletal: No other, No neck pain, No shoulder pain, No arm pain, No back pain, No hand pain, No leg pain, No foot pain Skin: No Rash, No Lesions, No Jaundice, No Bruising, No Other Objective Vitals Vital Signs Date Time Temp Pulse Resp B/P (MAP) Pulse Ox O2 Delivery O2 Flow Rate FiO2 12/30/24 13:00 97.2 90 18 111/79 (90) 100 97.2 12/30/24 07:30 Room Air* 0 21 Intake/Output Intake and Output 12/30/24 07:00 Intake Total 690 ml Balance 690 ml Intake Oral 540 ml IV Total 150 ml # Voids 10 General Appearance: Alert, Oriented X3, Cooperative, No acute distress, mild distress, moderate distress, severe distress, Other Lungs: Clear to auscultation Cardiovascular: Regular rate, Normal S1, Normal S2, No murmurs, Gallops, Rubs, Other Abdomen: Normal bowel sounds, Soft, No tenderness (Patient positive for epigastric and right upper quadrant tenderness), No hepatospenomegaly, No masses , Other Psych/Mental Status: Mental status NL, Mood NL Medications Current Medications Medications Dose Ordered Sig/Malina Route Start Time Stop Time Status Last Admin Dose Admin Ceftriaxone Sodium 50 ml @ 100 mls/hr DAILY@09 IV 12/24/24 09:00 12/30/24 09:26 100 MLS/HR Acetaminophen/ Hydrocodone Bitart 1 tab Q4HP PRN PO 12/23/24 21:30 12/30/24 11:52 1 TAB Docusate Sodium 100 mg BIDPRN PRN PO 12/23/24 21:30 Acetaminophen 650 mg Q6HP PRN PO 12/23/24 21:30 Nitroglycerin 0.4 mg Q5MINP PRN SL 12/23/24 21:30 Morphine Sulfate 2 mg Q30M PRN IV 12/23/24 21:30 Dextrose 50 ml UD PRN IV 12/24/24 18:15 Insulin Glargine 12 units DAILY@1000 SC 12/25/24 12:15 12/30/24 11:41 12 UNITS Meclizine HCl 25 mg Q8HPRN PRN PO 12/25/24 12:15 12/28/24 10:11 25 MG Diagnostic Test (Pha) 1 strip IQ4HR 12/25/24 16:00 12/30/24 11:43 1 STRIP Insulin Human Regular IQ4HR SC 12/25/24 16:00 12/30/24 11:42 3 UNITS Sucralfate 1 gm BID@0600,2200 PO 12/26/24 22:00 12/29/24 05:47 1 GM Pantoprazole Sodium 40 mg BID IV 12/27/24 10:00 12/30/24 09:36 40 MG Prochlorperazine Edisylate 10 mg Q6HPRN PRN IV 12/27/24 10:00 12/27/24 15:32 10 MG Erythromycin 250 mg Q8HR PO 12/27/24 14:00 12/30/24 14:28 250 MG Lactulose 30 ml DAILY PO 12/28/24 10:00 12/30/24 09:36 30 ML Morphine Sulfate 2 mg Q6HP PRN IV 12/27/24 14:30 12/29/24 22:36 2 MG Metoclopramide HCl 10 mg TID IV 12/27/24 22:00 12/30/24 11:53 10 MG Laboratory Results Laboratory Tests 12/28/24 06:30 12/29/24 06:35 Urinalysis Test 12/23/24 04:48 Urine Color Yellow (Yellow) Urine Clarity Clear (Clear) Urine pH 6.5 (5.0-9.0) Urine Specific [place] 1.024 (1.001-1.035) Urine Protein Trace (Negative) H Urine Ketones 4+ (Negative) H Urine Blood Negative /uL (Negative) Urine Nitrite Negative (Negative) Urine Bilirubin Negative (Negative) Urine Urobilinogen 2 mg/dL (Negative) H Urine Leukocyte Esterase Negative /uL (Negative) Urine RBC <1 /hpf (0 - 4) Urine Microscopic WBC 1 /HPF (0-5) Urine Squamous Epithelial Cells Few /hpf (<5) Urine Bacteria None seen /hpf (None Seen) Urine Mucus Few (None Seen) Urine Glucose Trace mg/dL (Normal) Microbiology Microbiology Date/Time Source Procedure Growth Status 12/24/24 18:15 Nose MRSA Screen - Final Complete 12/23/24 15:37 Blood Blood Culture - Final NO GROWTH AFTER 5 DAYS OF INCUBATION. Complete Labs and/or images reviewed: Labs reviewed by me, Image(s) reviewed by me Assessment/Plan Assessment/Plan Impression: -gastroduodenitis -diverticulosis -anxiety disorder -primary hypertension Plan: -patient had EGD and colonoscopy. Patient's diet was advanced to mechanical soft for which she had worsening pain today in his requesting to be placed on a liquid diet. -continue PPI, Carafate -full liquid diet -discharge planning once patient's abdominal pain has improved. Discussion was made with the patient regarding findings of both EGD and colonoscopy. Total time spent with patient discussing and formulating plan of care: 35 minutes. This medical document was created using an electronic medical record system with [employer] dictation system. Although this document has been carefully reviewed, there may still be some phonetic and typographical errors. These areas are purely typographical due to imperfections of the software programs, and do not reflect any compromise in the patient's medical care. Plan discussed with: Patient, Other (RN) My Orders Orders - MICHAEL KAY NP Procedure Category Date Status Time Full Liq Diet DIET 12/30/24 Transmitted Dinner Pt Request For Service PT 12/30/24 Logged 14:53 Date of Service: Dec 30, 2024 Billing Provider: MICHAEL KAY NP Common Visit Codes: [id number] INP/OBS CARE(HIGH) MICHAEL KAY NP Dec 30, 2024 15:43
--- NOTE | 2024-12-30 21:15 | DVHPN2 ---
Progress Note - Dictate Date Seen: Dec 30, 2024 Medical Necessity Reason Pt with a Central, PICC or Fol: No Subjective Mild abd pain with soft diet EGD showed moderate gastroduodenitis Colonoscopy revealed diverticular disease with mild diverticular associated sigmoiditis and a benign polyp CT scan showed mild gastritis ;ultrasound and KUB were negative vital signs Vital Sign Date Time Temp Pulse Resp B/P (MAP) Pulse Ox O2 Delivery O2 Flow Rate FiO2 12/30/24 18:20 90 18 110/77 12/30/24 16:56 97.8 98 97.8 12/30/24 07:30 Room Air* 0 21 Total Intake and Output 12/29/24 12/29/24 12/30/24 15:00 23:00 07:00 Intake Total 150 ml 240 ml 300 ml Balance 150 ml 240 ml 300 ml medications Current Medications Medications Dose Ordered Sig/Malina Route Start Time Stop Time Status Last Admin Dose Admin Ceftriaxone Sodium 50 ml @ 100 mls/hr DAILY@09 IV 12/24/24 09:00 12/30/24 09:26 100 MLS/HR Acetaminophen/ Hydrocodone Bitart 1 tab Q4HP PRN PO 12/23/24 21:30 12/30/24 20:31 1 TAB Docusate Sodium 100 mg BIDPRN PRN PO 12/23/24 21:30 Acetaminophen 650 mg Q6HP PRN PO 12/23/24 21:30 Nitroglycerin 0.4 mg Q5MINP PRN SL 12/23/24 21:30 Morphine Sulfate 2 mg Q30M PRN IV 12/23/24 21:30 Dextrose 50 ml UD PRN IV 12/24/24 18:15 Insulin Glargine 12 units DAILY@1000 SC 12/25/24 12:15 12/30/24 11:41 12 UNITS Meclizine HCl 25 mg Q8HPRN PRN PO 12/25/24 12:15 12/28/24 10:11 25 MG Diagnostic Test (Pha) 1 strip IQ4HR 12/25/24 16:00 12/30/24 20:32 1 STRIP Insulin Human Regular IQ4HR SC 12/25/24 16:00 12/30/24 20:00 3 UNITS Sucralfate 1 gm BID@0600,2200 PO 12/26/24 22:00 12/29/24 05:47 1 GM Pantoprazole Sodium 40 mg BID IV 12/27/24 10:00 12/30/24 09:36 40 MG Prochlorperazine Edisylate 10 mg Q6HPRN PRN IV 12/27/24 10:00 12/27/24 15:32 10 MG Erythromycin 250 mg Q8HR PO 12/27/24 14:00 12/30/24 14:28 250 MG Lactulose 30 ml DAILY PO 12/28/24 10:00 12/30/24 09:36 30 ML Morphine Sulfate 2 mg Q6HP PRN IV 12/27/24 14:30 12/30/24 17:50 2 MG Metoclopramide HCl 10 mg TID IV 12/27/24 22:00 12/30/24 11:53 10 MG objective General Appearance: Alert, Oriented X3, Cooperative, No acute distress, Lungs: Clear to auscultation Cardiovascular: Regular rate, Normal S1, Normal S2, No murmurs, Gallops, Rubs, Other Abdomen: Normal bowel sounds, Soft, mild epigastric and right upper quadrant tenderness No hepatospenomegaly, No masses, Other Psych/Mental Status: Mental status NL, Mood NL laboratory and microbiology Laboratory Tests 12/29/24 06:35 12/28/24 06:30 Test 12/29/24 06:35 Range/Units Serum Glucose 97 74-106 mg/dL Problems(with codes): (1) Gastroduodenitis (2) Abdominal pain (3) Diabetes mellitus with hyperglycemia (4) Intractable nausea and vomiting (5) Generalized weakness (6) Diverticulitis of intestine (7) Hiatal hernia with gastroesophageal reflux disease and esophagitis Prognosis Plan Continue Protonix and Carafate Trial of Bentyl 10 mg p.o. twice a day as needed Full liquid diet advance as tolerated Check biopsy and pathology results;check H Pylori I will follow up patient with you Dietary Evaluation Review Comments: 1) Initiate Ensure Clear bid 2) Encourage optimal PO intake 3) Continue Zofran PRN 4) Advance to 60g CCHO cardiac diet when medically feasible 5) Follow-up with gastroenterology and cardiology 6) Continue to monitor I&O, labs, and skin integrity Expected Outcomes/Goals: 1) appetite and labs to improve 2) diet to advance 3) GI symptoms to resolve 4) f/u in 3-5 days Plan discussed with: Other (Lacy Li) KARTHIK PINEDA MD Dec 30, 2024 21:15
[2024-12-30] MEDS: DICYCLOMINE HCL 10 MG CAP PO SCH (21:34)
[2024-12-31] VITALS (8 sets, daily range): BP systolic 91–124; BP diastolic 62–81; PULSE 65–84; RESP 15–18; TEMP 97.5–98.4; O2SAT 97–100
--- NOTE | 2024-12-31 11:23 | DVHPN2 ---
Subjective Patient reporting have abdominal pain with mechanical soft diet. Reviewed: H&P Changes from previous H/P or p: No Changes General: Per HPI Eyes: No Pain, No Vision change, No Conjunctivae inflammation, No Eyelid inflammation, No Other, No Redness ENT: No Ear pain, No Ear discharge, No Nose pain, No Nose discharge, No Nose congestion, No Mouth pain, No Mouth swelling, No Throat pain, No Throat swelling, No Other Cardiovascular: No Chest Pain, No Palpitations, No Orthopnea, No Paroxysmal Noc. Dyspnea, No Edema, No Lt Headedness, No Other Respiratory: No Cough, No Dry, No Shortness of breath, No SOB with excertion, No Wheezing, No Hemoptysis, No Pleuritic Pain, No Sputum, No Other Gastrointestinal: Nausea, Vomiting, Abdominal Pain; No Diarrhea; Constipation; No Melena, No Hematochezia, No Other Genitourinary: No Dysuria, No Frequency, No Incontinence, No Hematuria, No Retention, No Other Musculoskeletal: No other, No neck pain, No shoulder pain, No arm pain, No back pain, No hand pain, No leg pain, No foot pain Skin: No Rash, No Lesions, No Jaundice, No Bruising, No Other Objective Vitals Vital Signs Date Time Temp Pulse Resp B/P (MAP) Pulse Ox O2 Delivery O2 Flow Rate FiO2 12/31/24 09:00 97.6 71 16 124/81 (95) 99 97.6 12/30/24 20:00 Room Air* 0 21 Intake/Output Intake and Output 12/31/24 07:00 Intake Total 1030 ml Balance 1030 ml Intake Oral 980 ml IV Total 50 ml # Voids 10 General Appearance: Alert, Oriented X3, Cooperative, No acute distress, mild distress, moderate distress, severe distress, Other Lungs: Clear to auscultation Cardiovascular: Regular rate, Normal S1, Normal S2, No murmurs, Gallops, Rubs, Other Abdomen: Normal bowel sounds, Soft, No tenderness (Patient positive for epigastric and right upper quadrant tenderness), No hepatospenomegaly, No masses , Other Skin: Dry, Intact Psych/Mental Status: Mental status NL, Mood NL Medications Current Medications Medications Dose Ordered Sig/Malina Route Start Time Stop Time Status Last Admin Dose Admin Ceftriaxone Sodium 50 ml @ 100 mls/hr DAILY@09 IV 12/24/24 09:00 12/31/24 09:03 100 MLS/HR Acetaminophen/ Hydrocodone Bitart 1 tab Q4HP PRN PO 12/23/24 21:30 12/30/24 20:31 1 TAB Docusate Sodium 100 mg BIDPRN PRN PO 12/23/24 21:30 Acetaminophen 650 mg Q6HP PRN PO 12/23/24 21:30 Nitroglycerin 0.4 mg Q5MINP PRN SL 12/23/24 21:30 Morphine Sulfate 2 mg Q30M PRN IV 12/23/24 21:30 Dextrose 50 ml UD PRN IV 12/24/24 18:15 Insulin Glargine 12 units DAILY@1000 SC 12/25/24 12:15 12/31/24 10:49 12 UNITS Meclizine HCl 25 mg Q8HPRN PRN PO 12/25/24 12:15 12/28/24 10:11 25 MG Diagnostic Test (Pha) 1 strip IQ4HR 12/25/24 16:00 12/31/24 10:52 1 STRIP Insulin Human Regular IQ4HR SC 12/25/24 16:00 12/30/24 20:00 3 UNITS Sucralfate 1 gm BID@0600,2200 PO 12/26/24 22:00 12/29/24 05:47 1 GM Pantoprazole Sodium 40 mg BID IV 12/27/24 10:00 12/31/24 09:30 40 MG Prochlorperazine Edisylate 10 mg Q6HPRN PRN IV 12/27/24 10:00 12/27/24 15:32 10 MG Erythromycin 250 mg Q8HR PO 12/27/24 14:00 12/30/24 14:28 250 MG Lactulose 30 ml DAILY PO 12/28/24 10:00 12/31/24 09:31 30 ML Morphine Sulfate 2 mg Q6HP PRN IV 12/27/24 14:30 12/31/24 06:30 2 MG Metoclopramide HCl 10 mg TID IV 12/27/24 22:00 12/31/24 06:28 10 MG Dicyclomine HCl 10 mg BID PO 12/30/24 22:00 12/31/24 09:31 10 MG Laboratory Results Laboratory Tests 12/28/24 06:30 12/29/24 06:35 Urinalysis Test 12/23/24 04:48 Urine Color Yellow (Yellow) Urine Clarity Clear (Clear) Urine pH 6.5 (5.0-9.0) Urine Specific [place] 1.024 (1.001-1.035) Urine Protein Trace (Negative) H Urine Ketones 4+ (Negative) H Urine Blood Negative /uL (Negative) Urine Nitrite Negative (Negative) Urine Bilirubin Negative (Negative) Urine Urobilinogen 2 mg/dL (Negative) H Urine Leukocyte Esterase Negative /uL (Negative) Urine RBC <1 /hpf (0 - 4) Urine Microscopic WBC 1 /HPF (0-5) Urine Squamous Epithelial Cells Few /hpf (<5) Urine Bacteria None seen /hpf (None Seen) Urine Mucus Few (None Seen) Urine Glucose Trace mg/dL (Normal) Microbiology Microbiology Date/Time Source Procedure Growth Status 12/24/24 18:15 Nose MRSA Screen - Final Complete 12/23/24 15:37 Blood Blood Culture - Final NO GROWTH AFTER 5 DAYS OF INCUBATION. Complete Labs and/or images reviewed: Labs reviewed by me, Image(s) reviewed by me Assessment/Plan Assessment/Plan Impression: -gastroduodenitis -diverticulosis -anxiety disorder -primary hypertension Plan: -patient states that she was able to tolerate full liquid diet. States she was able to tolerate cream of wheat consistency. Does report having pain with eating, not as severe as yesterday. -GI recommendations reviewed. Continue with Bentyl -continue PPI, Carafate -full liquid diet -discharge planning once patient's abdominal pain has improved. Discussion was made with the patient regarding findings of both EGD and colonoscopy. Total time spent with patient discussing and formulating plan of care: 35 minutes. This medical document was created using an electronic medical record system with [employer] dictation system. Although this document has been carefully reviewed, there may still be some phonetic and typographical errors. These areas are purely typographical due to imperfections of the software programs, and do not reflect any compromise in the patient's medical care. Plan discussed with: Patient, Other (RN) My Orders Orders - MICHAEL KAY STEM TEACHER Procedure Category Date Status Time Full Liq Diet DIET 12/30/24 Transmitted Dinner Pt Request For Service PT 12/30/24 Logged 14:53 Date of Service: Dec 31, 2024 Billing Provider: MICHAEL KAY NP Common Visit Codes: [id number] INP/OBS CARE(HIGH) MICHAEL KAY NP Dec 31, 2024 11:23
--- NOTE | 2024-12-31 21:00 | DVHPN2 ---
Progress Note - Dictate Date Seen: Dec 31, 2024 Medical Necessity Reason Pt with a Central, PICC or Fol: No Subjective Patient prefers full liquid to pureed diet which is tolerating well EGD showed moderate gastroduodenitis Colonoscopy revealed diverticular disease with mild diverticular associated sigmoiditis and a benign polyp CT scan showed mild gastritis ;ultrasound and KUB were negative vital signs Vital Sign Date Time Temp Pulse Resp B/P (MAP) Pulse Ox O2 Delivery O2 Flow Rate FiO2 12/31/24 17:00 98.2 65 15 101/68 (79) 100 98.2 12/31/24 07:30 Room Air* 0 21 Total Intake and Output 12/30/24 12/30/24 12/31/24 15:00 23:00 07:00 Intake Total 50 ml 500 ml 480 ml Balance 50 ml 500 ml 480 ml medications Current Medications Medications Dose Ordered Sig/Malina Route Start Time Stop Time Status Last Admin Dose Admin Ceftriaxone Sodium 50 ml @ 100 mls/hr DAILY@09 IV 12/24/24 09:00 12/31/24 09:03 100 MLS/HR Acetaminophen/ Hydrocodone Bitart 1 tab Q4HP PRN PO 12/23/24 21:30 12/31/24 17:02 1 TAB Docusate Sodium 100 mg BIDPRN PRN PO 12/23/24 21:30 Acetaminophen 650 mg Q6HP PRN PO 12/23/24 21:30 Nitroglycerin 0.4 mg Q5MINP PRN SL 12/23/24 21:30 Morphine Sulfate 2 mg Q30M PRN IV 12/23/24 21:30 Dextrose 50 ml UD PRN IV 12/24/24 18:15 Insulin Glargine 12 units DAILY@1000 SC 12/25/24 12:15 12/31/24 10:49 12 UNITS Meclizine HCl 25 mg Q8HPRN PRN PO 12/25/24 12:15 12/28/24 10:11 25 MG Diagnostic Test (Pha) 1 strip IQ4HR 12/25/24 16:00 12/31/24 20:28 1 STRIP Insulin Human Regular IQ4HR SC 12/25/24 16:00 12/31/24 17:11 9 UNITS Sucralfate 1 gm BID@0600,2200 PO 12/26/24 22:00 12/29/24 05:47 1 GM Pantoprazole Sodium 40 mg BID IV 12/27/24 10:00 12/31/24 09:30 40 MG Prochlorperazine Edisylate 10 mg Q6HPRN PRN IV 12/27/24 10:00 12/27/24 15:32 10 MG Erythromycin 250 mg Q8HR PO 12/27/24 14:00 12/31/24 13:25 250 MG Lactulose 30 ml DAILY PO 12/28/24 10:00 12/31/24 09:31 30 ML Morphine Sulfate 2 mg Q6HP PRN IV 12/27/24 14:30 12/31/24 06:30 2 MG Metoclopramide HCl 10 mg TID IV 12/27/24 22:00 12/31/24 13:25 10 MG Dicyclomine HCl 10 mg BID PO 12/30/24 22:00 12/31/24 09:31 10 MG objective General Appearance: Alert, Oriented X3, Cooperative, No acute distress, Lungs: Clear to auscultation Cardiovascular: Regular rate, Normal S1, Normal S2, No murmurs, Gallops, Rubs, Other Abdomen: Normal bowel sounds, Soft, mild epigastric and right upper quadrant tenderness No hepatospenomegaly, No masses, Other Psych/Mental Status: Mental status NL, Mood NL laboratory and microbiology Laboratory Tests 12/29/24 06:35 12/28/24 06:30 Test 12/29/24 06:35 Range/Units Serum Glucose 97 74-106 mg/dL Problems(with codes): (1) Anxiety (2) Hiatal hernia with gastroesophageal reflux disease and esophagitis (3) Gastroduodenitis (4) Abdominal pain (5) Intractable nausea and vomiting (6) Acute epigastric pain Prognosis Plan Continue Protonix and Carafate Trial of Bentyl 10 mg p.o. twice a day as needed The patient stated that the dicyclomine helps her pain Full liquid diet advance as tolerated Check biopsy and pathology results;check H Pylori when available Patient is cleared for discharge from GI point of view to follow up in my office in 1-2 weeks Dietary Evaluation Review Comments: 1) Initiate Ensure Clear bid 2) Encourage optimal PO intake 3) Continue Zofran PRN 4) Advance to 60g CCHO cardiac diet when medically feasible 5) Follow-up with gastroenterology and cardiology 6) Continue to monitor I&O, labs, and skin integrity Expected Outcomes/Goals: 1) appetite and labs to improve 2) diet to advance 3) GI symptoms to resolve 4) f/u in 3-5 days Plan discussed with: Patient, Other (Sharad Licea) KARTHIK PINEDA MD Dec 31, 2024 21:00
[2025-01-01 05:00] VITALS: BP 126/80; PULSE 63; RESP 16; TEMP 98.1; O2SAT 99
[2025-01-01 08:00] VITALS: PULSE 52; PULSE 60; RESP 17; O2SAT 99
[2025-01-01 08:52] VITALS: BP 119/80; PULSE 72; RESP 17; TEMP 97.7; O2SAT 98
[2025-01-01 11:34] VITALS: PULSE 52
[2025-01-01] MEDS ORDERED: METO5TAB67 PO (12:21)
[2025-01-01] MEDS ORDERED: PANT40T PO (12:21)
[2025-01-01] MEDS ORDERED: HYDR-4902 PO (12:21)
[2025-01-01] MEDS ORDERED: SUCR1TAB PO (12:21)
[2025-01-01] MEDS ORDERED: ZOFR4T PO (12:21)
[2025-01-01] MEDS ORDERED: DICY10CA PO (12:21)
--- NOTE | 2025-01-01 12:23 | DVHDS2 ---
Discharge Summary Date of Admission Dec 23, 2024 at 21:29 Date of Discharge: Jan 01, 2025 Labs/Diagnostic Data: Laboratory Results Test 01/01/25 11:49 12/29/24 06:35 12/28/24 06:30 12/26/24 06:14 POC Glucose 270 mg/dl (70-106) Sodium Level 136 mmol/L (136-145) Potassium Level 3.4 mmol/L (3.5-5.1) Chloride Level 98 mmol/L (98-107) Carbon Dioxide Level 26 mmol/L (20-31) Anion Gap 12 (5-15) Blood Urea Nitrogen 7 mg/dL (9-23) Creatinine 0.45 mg/dL (0.550-1.02) Glomerular Filtration Rate Calc 111 mL/min (>90) BUN/Creatinine Ratio 15.6 (10.0-20.0) Serum Glucose 97 mg/dL (74-106) Calcium Level 10.1 mg/dL (8.7-10.4) Total Bilirubin 1.1 mg/dL (0.2-1.0) Aspartate Amino Transferase (AST) 13 U/L (13-40) Alanine Aminotransferase (ALT) 12 U/L (7-40) Alkaline Phosphatase 77 U/L (46-116) Total Protein 7.2 g/dL (5.7-8.2) Albumin 4.3 g/dL (3.2-4.8) White Blood Count 9.1 10^3/uL (4.4-10.8) Red Blood Count 4.44 10^6/uL (4.0-5.20) Hemoglobin 14.6 g/dL (12.2-16.2) Hematocrit 40.9 % (36.0-46.0) Mean Corpuscular Volume 92.1 fL (80.0-100.0) Mean Corpuscular Hemoglobin 33.0 pg (28.0-32.0) Mean Corpuscular Hemoglobin Concent 35.8 g/dL (32.0-36.0) Red Cell Distribution Width 13.0 % (11.8-14.3) Platelet Count 239 10^3/uL (140-450) Mean Platelet Volume 7.1 fL (6.9-10.8) Neutrophils (%) (Auto) 80.7 % (37.0-80.0) Lymphocytes (%) (Auto) 12.8 % (10.0-50.0) Monocytes (%) (Auto) 6.1 % (0.0-12.0) Eosinophils (%) (Auto) 0.3 % (0.0-7.0) Basophils (%) (Auto) 0.1 % (0.0-2.0) Neutrophils # (Auto) 7.4 10 ^3/uL (1.6-8.6) Lymphocytes # (Auto) 1.2 10 ^3/uL (0.4-5.4) Monocytes # (Auto) 0.6 10 ^3/uL (0-1.3) Eosinophils # (Auto) 0 10 ^3/uL (0-0.8) Basophils # (Auto) 0 10 ^3/uL (0-0.2) Nucleated Red Blood Cells 0.0 % Magnesium Level 1.9 mg/dL (1.6-2.6) Prothrombin Time 10.9 sec (9.3-11.8) Prothrombin Time INR 1.03 (0.9-1.15) Activated Partial Thromboplast Time 25.9 SEC (24.5-34.5) Test 12/24/24 17:06 12/24/24 13:58 12/24/24 13:53 12/23/24 04:48 Lactic Acid Level 1.3 mmol/L (0.4-2.0) Blood Gas Specimen Type Arterial Blood Gas Sample Site Left radial Blood Gas Patient Temperature 37.0 Arterial Blood Date Drawn [id number] Arterial Blood pH 7.558 (7.350-7.450) Arterial Blood Partial Pressure CO2 21.1 mmHg (32.0-45.0) Arterial Blood Partial Pressure O2 103.9 mmHg (83.0-108.0) Arterial Blood HCO3 18.4 mmol/L (21.0-28.0) Arterial Blood Oxygen Saturation 98.0 % (94.0-98.0) Arterial Blood Base Excess -1.5 mmol/L (-2.0-3.0) Arterial Blood Oxyhemoglobin 97.3 % (94.0-98.0) Arterial Blood Carboxyhemoglobin 0.4 % (0.5-1.5) Arterial Blood Methemoglobin 0.3 % (0.0-1.5) Domingo Test Yes Blood Gas Total Hemoglobin 14.60 g/dL (12.0-16.0) Blood Gas Liter Flow 0.00 Blood Gas Modality Room air FiO2 % 21.0 Blood Gas Critical Value Read Back Yes Blood Gas Notified Whom kandy Nguyen Blood Gas Notified Time [id number] Blood Gas Notified By Boathouse Keeper melody ham Beta-Hydroxybutyric Acid 3.191 mmol/L (< 0.4) Urine Color Yellow (Yellow) Urine Clarity Clear (Clear) Urine pH 6.5 (5.0-9.0) Urine Specific [place] 1.024 (1.001-1.035) Urine Protein Trace (Negative) Urine Ketones 4+ (Negative) Urine Blood Negative /uL (Negative) Urine Nitrite Negative (Negative) Urine Bilirubin Negative (Negative) Urine Urobilinogen 2 mg/dL (Negative) Urine Leukocyte Esterase Negative /uL (Negative) Urine RBC <1 /hpf (0 - 4) Urine Microscopic WBC 1 /HPF (0-5) Urine Squamous Epithelial Cells Few /hpf (<5) Urine Bacteria None seen /hpf (None Seen) Urine Mucus Few (None Seen) Urine Glucose Trace mg/dL (Normal) Urine Opiates Screen Pos (NEGATIVE) Urine Fentanyl Screen Neg (NEGATIVE) Urine Barbiturates Screen Neg (NEGATIVE) Urine Phencyclidine Screen Neg (NEGATIVE) Urine Amphetamines Screen Neg (NEGATIVE) Urine Benzodiazepines Screen Neg (NEGATIVE) Urine Cocaine Screen Neg (NEGATIVE) Urine Cannabinoids Screen Neg (NEGATIVE) Other Laboratory Tests 12/29/24 06:35 12/28/24 06:30 Brief Hx & Hospital Course: 59-year-old female with multiple past medical history including anxiety, DM, UTIs, and hyperlipidemia who presented to [facility] ED with complaint of abdominal pain for the past 3 weeks. Patient reports she has been having acute abdominal pain, associated with nausea, hematemesis, constipation, getting worse that prompted this visit. Patient has been seem multiple times at this ED including [place] where her PCP referred her to [facility]. Patient has gotten multiple CT scans down at each facility which resulted non acute and was referred to see a GI. Patient has an appointment with GI on 01/17/25, but states pain is severe, sharp and rating 10/10 numeric rating scale. 12/24: GI consult was placed on admit, recommending UDS, Protonix Carafate, Colace MiraLax, elective C scope outpatient. Otherwise continue IV antibiotics, IV fluids, prn antiemetic/analgesia. Patient has a anion gap, acidosis, history of taking Jardiance euglycemic DKA concern as possible we will get ABG, ketosis severe on UA. Lactic acidosis was negative -patient has history of taking Jardiance, significant gap with beta hydroxy butyrate, ABG shows metabolic alkalosis likely from emesis and hyperventilation. We will upgrade to D OU and start DKA protocol for euglycemic DKA., continuous insulin at 3 units per hour (no loading insulin, stop any long-acting insulin), maintain fluids with D5 half NS with 20 KCL at rate 200 cc/hour,. Titrate fluids and insulin per DKA protocol with goal to close gap. At gap closure can transition patient with 12 unit Lantus and to clear liquid diet, NPO otherwise. Can continue prn analgesia, prn antiemetics. BMP b.i.d. to closely monitor potassium and gap. 12/25: The gap closed this morning 211, increase back to 14. Could possibly be starvation ketosis. We will try transition today turning down insulin drip and IV fluids, started Lantus 12 and we will feed and into hours ago start sliding scale as well. Repeat BNP 4:00 p.m.. Start Reglan 10 IV b.i.d. for possible gastroparesis. Start meclizine 25 mg PO prn t.i.d. for dizziness. Patient BNP looks well tolerating p.o. this evening we will deescalate to telemetry. 12/26: Patient has plan for EGD today she is NPO. Gap remains closed. Reglan IV b.i.d. was started yesterday patient is feeling better dry heaving as resolved. She still has some nausea. Headache dizziness is also resolving likely with Reglan. After EGD patient can deescalate to telemetry. Patient is complaining of a ball suprapubic, she has and fixed mass right suprapubic region no erythema. We will get CT abdomen pelvis with IV contrast to assess this mass. 12/27: Patient continues to have nausea cramps. Continues to have dizziness. Getting CT head, upright KUB, continuing Reglan 10 mg IV b.i.d., Zofran is not effective. QTC is 430, we will convert Zofran to Compazine. Compazine 10 q.6h PRN for nausea. GI to eval. Patient asking if she is colonoscopy. Starting erythromycin 250 mg q.8h as the 2nd prokinetic. 12/28: We have tried multiple modalities to improve patient's pain, but she continues to complain of cramping and abdominal pain and asking for further procedures. Patient is tolerating p.o., but has not had a bowel movement for 5 days, we will give enema today and continue lactulose and Reglan 10 IV t.i.d. I am slowly becoming more concern of factitious/psychogenic origin of these complaints. We will give enema today. GI has evaluated the patient and wants to proceed with colonoscopy tomorrow. We will reassess and possibly DC tomorrow 12/29: Patient is going for EGD today, continues to have pain. She appears very anxious, had enema yesterday and later bowel prep, having multiple movements now bowel sounds hyperactive. If remains stable, likely discharge tomorrow. - colon with diverticulosis and narrowing in sigmoid -- tentative discharge plan: Take Zofran ODT PRN, scheduled Reglan p.o. 10 mg b.i.d. x10 day, pain control. 01/01: Apparently continued to have pain over the weekend, suspecting pain seeking behavior and/or severe anxiety. But today is in agreement for discharge. I was about to start amitriptyline for functional abdominal pain syndrome but we will hold off right now. Defer to GI outpatient. Patient is stable for discharge, some vital signs stable, tolerating p.o., bowel sounds present. Stable for discharge as per plan below. diagnosis: Acute gastroenteritis, infectious etiology likely Hiatal hernia with gastroesophageal reflux disease and esophagitis Gastroduodenitis Diverticulosis, possible early diverticulitis early DKA, early euglycemic DKA possible Respiratory alkalosis, with anion gap metabolic acidosis, with metabolic alkalosis from emesis Ketoacidosis, from DKA and/or starvation Intractable abdominal pain, likely due to above P.o. intolerance likely due to above intractable nausea, likely due to above Constipation possible anxiety DM hx UTIs hyperlipidemia Discharge plan: - Take Zofran ODT PRN, for nausea -scheduled Reglan p.o. 10 mg b.i.d. x10 day, -Refill Carafate take twice daily. Continue Protonix 40 mg daily. - diet: full liquid, diabetic, high fiber. -For pain control use 1st line Tylenol, second-line ibuprofen, 3rd line prescribed [place] 5mg up to 4 times daily as needed -Take Bentyl up to 3 times daily as needed for abdominal cramps -Follow up with GI outpatient, -follow up with PCP to review discharge. Condition at Discharge: Fair Final Diagnosis/Problems List Acute gastroenteritis, infectious etiology likely Hiatal hernia with gastroesophageal reflux disease and esophagitis Gastroduodenitis Diverticulosis, possible early diverticulitis early DKA, early euglycemic DKA possible Respiratory alkalosis, with anion gap metabolic acidosis, with metabolic alkalosis from emesis Ketoacidosis, from DKA and/or starvation Intractable abdominal pain, likely due to above P.o. intolerance likely due to above intractable nausea, likely due to above Constipation possible anxiety DM hx UTIs hyperlipidemia Discharge Disposition: Home Discharge Instruct/Medications Scheduled Azithromycin (Zithromax), 1 TAB PO DAILY Citalopram Hydrobromide (Citalopram Hydrobromide), 20 MG PO DAILY, (Reported) Insulin Glargine (Basaglar Kwikpen), 52 UNIT SC DAILY, (Reported) Levofloxacin (Levaquin), 500 MG PO DAILY Metformin Hydrochloride (Metformin Hcl), 2,000 MG PO DAILY, (Reported) Metoclopramide Hcl (Reglan), 10 MG PO BID Oxybutynin Chloride (Oxybutynin Chloride), 5 MG PO DAILY, (Reported) Pantoprazole Sodium Sesquihydr (Pantoprazole Sodium), 40 MG PO DAILY Sucralfate (Carafate Susp), 1 GM PO QIDACHS Sucralfate (Sucralfate), 1 GM PO BID [Omeprazole Dr 20 Mg Capsule], PO DAILY, (Reported) [[id number] Mg], MG PO DAILY, (Reported) [Tramadol Hcl50 Mg], MG PO PRN, (Reported) Scheduled PRN Dicyclomine Hcl (Bentyl Capsule), 1 CAP PO TID PRN Hydrocodone-Acetaminophen (Hydrocodone Bitartrate/AC 5-325 mg), 1 TAB PO QIDP PRN Ondansetron Odt 4MG Tab (Zofran Po), 4 MG PO TIDP PRN Tramadol HCl (Tramadol HCl), 50 MG PO Q8HP PRN Miscellaneous Medications [Bupropion [id number] Mg], MG, (Reported) Discharge Statement: "Patient was advised to return to the ER or call 911 if any headaches, dizziness, shortness of breath, chest pain, abdominal pain, bleeding, fevers, or worsening of medical condition. Patient was counseled about treatment plan, medications, possible side effects, patientverbalized understanding. All questions were answered to the best of my ability. This discharge took greater then 30 minutes in planning, reviewing documentation, counseling the patient, and discussing with other team members." ASSESSMENT ASSESSMENT Assessment Date of Service: Jan 01, 2025 Billing Provider: DOMINIC VALLADARES MD Common Visit Codes: [id number]/[id number] DISCH DAY >30min DOMINIC VALLADARES MD Jan 01, 2025 12:23
[2025-01-01 12:46] VITALS: BP 110/67; PULSE 87; RESP 19; TEMP 98.1; O2SAT 100
--- NOTE | 2025-01-01 13:11 | DVHPN2 ---
Progress Note - Dictate Date Seen: Jan 01, 2025 Medical Necessity Reason Pt with a Central, PICC or Fol: No Subjective Patient prefers full liquid to pureed diet which is tolerating well EGD showed moderate gastroduodenitis Colonoscopy revealed diverticular disease with mild diverticular associated sigmoiditis and a benign polyp CT scan showed mild gastritis ;ultrasound and KUB were negative vital signs Vital Sign Date Time Temp Pulse Resp B/P (MAP) Pulse Ox O2 Delivery O2 Flow Rate FiO2 01/01/25 12:46 98.1 87 19 110/67 (81) 100 98.1 01/01/25 08:00 Room Air* 0 21 Total Intake and Output 12/31/24 12/31/24 01/01/25 15:00 23:00 07:00 Intake Total 50 ml 250 ml Balance 50 ml 250 ml medications Current Medications Medications Dose Ordered Sig/Malina Route Start Time Stop Time Status Last Admin Dose Admin Ceftriaxone Sodium 50 ml @ 100 mls/hr DAILY@09 IV 12/24/24 09:00 01/01/25 08:57 100 MLS/HR Acetaminophen/ Hydrocodone Bitart 1 tab Q4HP PRN PO 12/23/24 21:30 12/31/24 17:02 1 TAB Docusate Sodium 100 mg BIDPRN PRN PO 12/23/24 21:30 Acetaminophen 650 mg Q6HP PRN PO 12/23/24 21:30 Nitroglycerin 0.4 mg Q5MINP PRN SL 12/23/24 21:30 Morphine Sulfate 2 mg Q30M PRN IV 12/23/24 21:30 Dextrose 50 ml UD PRN IV 12/24/24 18:15 Insulin Glargine 12 units DAILY@1000 SC 12/25/24 12:15 01/01/25 09:03 12 UNITS Meclizine HCl 25 mg Q8HPRN PRN PO 12/25/24 12:15 12/28/24 10:11 25 MG Diagnostic Test (Pha) 1 strip IQ4HR 12/25/24 16:00 01/01/25 12:08 1 STRIP Insulin Human Regular IQ4HR SC 12/25/24 16:00 01/01/25 12:16 9 UNITS Sucralfate 1 gm BID@0600,2200 PO 12/26/24 22:00 01/01/25 04:56 1 GM Pantoprazole Sodium 40 mg BID IV 12/27/24 10:00 01/01/25 10:45 40 MG Prochlorperazine Edisylate 10 mg Q6HPRN PRN IV 12/27/24 10:00 12/27/24 15:32 10 MG Erythromycin 250 mg Q8HR PO 12/27/24 14:00 12/31/24 13:25 250 MG Lactulose 30 ml DAILY PO 12/28/24 10:00 12/31/24 09:31 30 ML Morphine Sulfate 2 mg Q6HP PRN IV 12/27/24 14:30 01/01/25 05:06 2 MG Metoclopramide HCl 10 mg TID IV 12/27/24 22:00 01/01/25 04:57 10 MG Dicyclomine HCl 10 mg BID PO 12/30/24 22:00 01/01/25 08:58 10 MG Amitriptyline HCl 25 mg HS PO 01/01/25 22:00 objective General Appearance: Alert, Oriented X3, Cooperative, No acute distress, Lungs: Clear to auscultation Cardiovascular: Regular rate, Normal S1, Normal S2, No murmurs, Gallops, Rubs, Other Abdomen: Normal bowel sounds, Soft, mild epigastric and right upper quadrant tenderness No hepatospenomegaly, No masses, Other Psych/Mental Status: Mental status NL, Mood NL laboratory and microbiology Laboratory Tests 12/29/24 06:35 12/28/24 06:30 Test 12/29/24 06:35 Range/Units Serum Glucose 97 74-106 mg/dL Problems(with codes): (1) Acute epigastric pain (2) Anxiety (3) Hiatal hernia with gastroesophageal reflux disease and esophagitis (4) Gastroduodenitis (5) Diverticulitis of intestine Prognosis Plan Continue Protonix and Carafate Trial of Bentyl 10 mg p.o. twice a day as needed The patient stated that the dicyclomine helps her pain Full liquid diet advance as tolerated Check biopsy and pathology results;check H Pylori when available Patient is cleared for discharge from GI point of view to follow up in my office in 1-2 weeks Discharge planning is in progress Dietary Evaluation Review Comments: 1) Initiate Ensure Clear bid 2) Encourage optimal PO intake 3) Continue Zofran PRN 4) Advance to 60g CCHO cardiac diet when medically feasible 5) Follow-up with gastroenterology and cardiology 6) Continue to monitor I&O, labs, and skin integrity Expected Outcomes/Goals: 1) appetite and labs to improve 2) diet to advance 3) GI symptoms to resolve 4) f/u in 3-5 days Plan discussed with: Patient, Other (Dr galeas) KARTHIK PINEDA MD Jan 01, 2025 13:11
[2025-01-01 14:23] VITALS: TEMP 36.7
[2025-01-01] MEDS ORDERED: AMITRIPTYLINE HCL 25 MG TAB PO SCH (22:00)
== END 2025-01-01 16:06 | disposition home or self-care (01) | DRG 244 ==
LOC: ER 11:45 → EDBD 11:45 → OVERFLOW 21:29 → CENTRAL 23:53 → DOU 12-24 18:25 → TELE-CENTR 12-27 18:11 → TELE-EAST 12-27 19:28 → EAST 12-30 16:49
PROVIDERS: ADMIT Student in an Organized Health Care Education/Training Program; ATTEND Student in an Organized Health Care Education/Training Program
PROC: 0DB68ZX Excision of Stomach, Via Natural or Artificial Opening Endoscopic, Diagnostic (ICD-10-PCS; 2024-12-26)
PROC: 0DB98ZX Excision of Duodenum, Via Natural or Artificial Opening Endoscopic, Diagnostic (ICD-10-PCS; principal; 2024-12-26 16:00)
PROC: 0DBK8ZZ Excision of Ascending Colon, Via Natural or Artificial Opening Endoscopic (ICD-10-PCS; 2024-12-29)
DX: K57.32 Diverticulitis of large intestine without perforation or abscess without bleeding (principal); E11.10 Type 2 diabetes mellitus with ketoacidosis without coma; E87.3 Alkalosis; K29.90 Gastroduodenitis, unspecified, without bleeding; K31.3 Pylorospasm, not elsewhere classified; K26.9 Duodenal ulcer, unspecified as acute or chronic, without hemorrhage or perforation; A09 Infectious gastroenteritis and colitis, unspecified; K59.00 Constipation, unspecified; K21.00 Gastro-esophageal reflux disease with esophagitis, without bleeding; F41.9 Anxiety disorder, unspecified; K29.70 Gastritis, unspecified, without bleeding; E78.5 Hyperlipidemia, unspecified; F17.210 Nicotine dependence, cigarettes, uncomplicated; K63.5 Polyp of colon; K64.8 Other hemorrhoids; I10 Essential (primary) hypertension; K44.9 Diaphragmatic hernia without obstruction or gangrene; Z90.49 Acquired absence of other specified parts of digestive tract; Z90.710 Acquired absence of both cervix and uterus; Z85.41 Personal history of malignant neoplasm of cervix uteri; Z83.3 Family history of diabetes mellitus; Z82.49 Family history of ischemic heart disease and other diseases of the circulatory system; Z80.49 Family history of malignant neoplasm of other genital organs; Z79.899 Other long term (current) drug therapy
CPT/HCPCS: 36415; 36600; 43239; 70450; 71045; 74018; 74176; 74177; 76705; 80048; 80053; 80307; 81001; 82010; 82805; 82962; 83605; 83735; 85025; 85610; 85730; 86850; 86900; 86901; 87040; 87081; 93005; 96365; 96368; 96375; 97110; 97116; 97163; 97530; G0378; J1815; J1885; J2003; J2250; J2405; J2470; J2704; J3480; J3490

== ENCOUNTER 2025-01-14 14:32 | Emergency (ER) | payer MEDICAID ==
[~2025-01-14] VITALS: Ht 154.9 cm; Wt 48.4 kg
[~2025-01-14 14:32] MED LIST changes: +DICY10CA PO; +HYDR-4902 PO; -LEVO500T31 PO; +METO5TAB67 PO; -OMEPRAZOLE DR 20 MG CAPSULE PO; +SUCR1TAB PO; +ZOFR4T PO
[2025-01-14 14:35] VITALS: BP 98/60; PULSE 100; RESP 16; TEMP 98.4; O2SAT 97
== END 2025-01-14 17:25 | disposition left against medical advice (07) ==
LOC: ER 14:32
DX: M79.89 Other specified soft tissue disorders (principal); Z53.21 Procedure and treatment not carried out due to patient leaving prior to being seen by health care provider